=== PATIENT | female | born 1970 | race Caucasian/White ===

== ENCOUNTER → 2018-01-27 09:50 | Outpatient (REF) | payer BC, SELFPAY ==
[2018-01-27 13:15] LABS: Basophils % 0.3 % (0.1-2.0); Eosinophils # 0.1 K/mm3 (0.0-0.4); Eosinophils % 1.2 % (0.1-12.0); Hematocrit 34.6 % (37.0-47.0); Hemoglobin 10.3 g/dL (12.2-16.2); Lymphocytes # 1.5 K/mm3 (0.7-4.5); Lymphocytes % 17.9 K/mm3 (10-50); Mean Corpuscular HGB Conc 29.9 g/dL (31.8-35.4); Mean Corpuscular Hemoglobin 22.3 pg (27.0-31.2); Mean Corpuscular Volume 74.7 fl (81-99); Mean Platelet Volume 8.3 fl (7.4-10.4); Monocytes # 0.5 K/mm3 (0.1-1.0); Monocytes % 5.4 % (1.7-9.3); Neutrophils # 6.4 K/mm3 (1.8-7.8); Neutrophils % 75.1 % (37.0-80.0); Platelet Count 251 K/mm3 (142-424); Red Blood Count 4.64 M/mm3 (4.20-5.40); Red Cell Distribution Width 18.7 % (11.5-17.5); White Blood Count 8.5 K/mm3 (4.8-10.8)
[2018-01-27 13:58] LABS: Alanine Aminotransferase 18 U/L (12-78); Albumin Level 3.2 gm/dL (3.4-5.0); Albumin/Globulin Ratio 0.9 (1.1-1.8); Alkaline Phosphatase 53 U/L (46-116); Anion Gap 14.2 mEq/L (5-15); Aspartate Amino Transferase 17 U/L (15-37); Bilirubin,Total 0.2 mg/dL (0.2-1.0); Blood Urea Nitrogen 18 mg/dL (7-18); Carbon Dioxide 24 mmol/L (21.0-32.0); Chloride 104 mmol/L (98-107); Chol/HDL Ratio 3.4 (1-3.5); Cholesterol 124 mg/dL (140-200); Creatinine,Serum 0.84 mg/dL (0.55-1.02); Estimated Glomerular Filt Rate 73 ml/min (>60); GFR (African American) 88 ML/MIN (>60); Globulin 3.7 gm/dl (1.3-3.2); Glucose 117 mg/dL (74-106); HDL Cholesterol 37 mg/dL (29-89); LDL Cholesterol 75 mg/dL (0-130); Potassium 4.2 mmoL/L (3.5-5.1); Sodium 138 mmol/L (136-145); T4 (Thyroxine) 5.4 ug/dl (4.7-13.3); Thyroid Stimulating Hormone 1.88 uIU/ml (0.358-3.740); Total Protein,Serum 6.9 gm/dL (6.4-8.2); Triglycerides 62 mg/dL (30-200); VLDL Cholesterol 12 mg/dL (0-40)
[2018-01-28 10:20] LABS: Vitamin D 25 Hydroxy 26.4 ng/mL (30.0-100.0)
== END ==
LOC: LAB 09:50
PROVIDERS: Visit Provider Physician Assistant
DX: R60.9 Edema, unspecified (principal); R63.5 Abnormal weight gain
CPT/HCPCS: 80053; 80061; 82652; 84436; 84443; 85025

== ENCOUNTER → 2018-02-04 13:33 | Outpatient (CLI) | payer BC, SELFPAY ==
--- NOTE | 2018-02-04 13:34 | XR_ITS ---
XR chest 2V HISTORY: ITS.REASON: edema ORDERING PHYSICIAN: PELON Thomas PATIENT AGE: 47 years COMPARISON: FINDINGS: Unremarkable cardiovascular structures. There is a 4 cm rounded density in the retrocardiac region on the left medially. Differential diagnosis includes hiatal hernia or pulmonary mass. Recommend chest CT with contrast for further evaluation. The remaining lungs are clear. There is an 8 mm calcified granuloma in the left upper lobe medially. No acute bony anomalies. IMPRESSION: 4 cm retrocardiac mass versus hiatal hernia. Recommend chest CT with contrast for further evaluation
--- NOTE | 2018-02-04 13:34 | CA_ITS ---
PROCEDURE: 2-D M-mode and color Doppler study INDICATIONS FOR THE TEST: Chest pain COPD Heart Murmur Tobacco Smoking Palpitations Fatigue Syncope Edema+ Hypertension Diabetes Mellitus Rheumatic Fever SOB MCMAHON Obesity Hyperlipidemia Family History HD Additional History PATIENT INFORMATION HEIGHT: 69 WEIGHT:302 GENDER: Female B/P:142/88 2-D/M-MODE INTERPRETATION: 2-D MEASUREMENTS OBSERVED VALUES IN CMS Right Ventricular Dimension (RVDd) 2.8 Interventricular Septum (Thickness)(IVsd) 1.5 Left Ventricular Internal Dimensions(LVIDd) 5.0 Left Ventricular Posterior Wall (Thickness)(LVPWd) 1.1 Aortic Root 3.0 Aortic Cusp Separation 1.9 Left Atrial Dimensions (LAD) 4.5 2D 1. Left atrium is mildly enlarged, left ventricle is normal size, mild concentric left ventricular hypertrophy, visually estimated ejection fraction 55% with no obvious regional wall motion abnormality. 2. The right atrium and right ventricle are mildly enlarged with normal contractility. 3. The aortic valve is minimally thickened and fibrosed. 4. The mitral and tricuspid valvular grossly normal. 5. The pulmonic valve is poorly visualized. 6. No significant pericardial effusion noted. DOPPLER INTERROGATION: Doppler interrogation of the aortic, mitral and tricuspid valvular presence of mild mitral and tricuspid regurgitation, tricuspid and jet velocity insufficient for calculation of the right ventricular systolic pressure, grade 1 diastolic dysfunction seen with tissue Doppler evidence of raised left atrial pressure, inferior vena cava is mildly dilated with normal inspiratory collapse. CONCLUSION: 1. Mildly enlarged left atrium, normal left ventricular size, mild concentric left ventricular hypertrophy, visually estimated ejection fraction 55% with no obvious regional wall motion abnormality, grade 1 diastolic dysfunction seen with tissue Doppler evidence of raised left atrial pressure. 2. Mildly enlarged right atrium and right ventricle, contractility of the right ventricle is normal 3. No significant pericardial effusion noted.
== END ==
PROVIDERS: Family Provider Family Medicine; PCP Physician Assistant; Visit Provider Physician Assistant
DX: R60.9 Edema, unspecified (principal); R93.8 Abnormal findings on diagnostic imaging of other specified body structures
CPT/HCPCS: 71046; 93306

== ENCOUNTER → 2018-02-16 10:43 | Outpatient (CLI) | payer BC, SELFPAY ==
--- NOTE | 2018-02-16 10:48 | CT_ITS ---
CT chest w con HISTORY: Pulmonary mass, abnormal chest x-ray ITS.REASON: abnormal CXR ORDERING PHYSICIAN: PELON Thomas PATIENT AGE: 47 years COMPARISON: 02/04/2018 TECHNIQUE: Axial images obtained following the administration of 75 mL of Isovue 370 . Sagittal, and coronal reformatted images are also generated and reviewed. All CT scans at the facility use one or more dose reduction, viz: automated exposure control; ma/kV adjustment per patient size (including targeted exams where dose is matched to indication; i.e. head); or iterative reconstruction technique. FINDINGS: No mediastinal or hilar mass or adenopathy. Normal heart size. No evidence of aortic aneurysm or central pulmonary embolus. There are scattered small lymph nodes in the axilla. Mild fibrotic changes present in the right upper lobe posteriorly extending to the pleura. No central obstructing lesion. There is a calcified nodule in the left upper lobe medially and may be due to granuloma. There is a well-circumscribed round soft tissue mass in the left lower lobe medially and posteriorly measuring 3.7 x 3.7 cm with density measurements ranging from -14 to 20 Hounsfield units. No definite fat or calcification evident. No other pulmonary nodules evident. This lesion is abutting the posterior mediastinum without evidence of bony erosion. This is anterior to the neural foramen of spine. Does not appear to enhance. Upper abdominal images straits cholelithiasis. No acute bony anomalies. IMPRESSION: 3.7 x 3.7 cm left lower lobe mass well-circumscribed iso to hypodense.. This may represent a pulmonary hamartoma however, definite fat or calcification is not identified within the lesion. Therefore, neoplasm cannot be excluded. Hamartomas may show increase FDG PET activity therefore PET scan not recommended. Would initially recommend a 3 month follow-up and pulmonology consult. Cholelithiasis
== END ==
PROVIDERS: Family Provider Family Medicine; PCP Physician Assistant; Visit Provider Physician Assistant
DX: R91.8 Other nonspecific abnormal finding of lung field (principal)
CPT/HCPCS: 71260; Q9967

== ENCOUNTER → 2018-06-22 10:00 | Outpatient (REF) | payer BC, SELFPAY ==
[2018-06-22 14:43] LABS: Amphetamine/Metha Screen,Urine Negative ng/mL (<1000); Barbiturates Screen,Urine Negative ng/mL (<200); Benzodiazepines Screen,Urine Negative ng/mL (<200); Cannabinoid Screen,Urine Negative ng/mL (<50); Cocaine Screen,Urine Negative ng/mL (<300); Methadone Screen,Urine Negative ng/mL (<300); Opiate Screen,Urine Negative ng/mL (<300); Phencyclidine Screen,Urine Negative ng/mL (<25)
== END ==
LOC: LAB 10:00
PROVIDERS: Visit Provider Physician Assistant
DX: Z79.899 Other long term (current) drug therapy (principal)
CPT/HCPCS: 80305

== ENCOUNTER → 2018-09-29 08:45 | Outpatient (CLI) | payer OTHER, SELFPAY ==
--- NOTE | 2018-09-29 08:47 | MM_ITS ---
MM Dig screening mamm BI w/CAD CAD Screening COMPARISON: Digital mammograms with CAD 05/23/2013 and post biopsy right breast 06/22/2012 INDICATION: There is a history of breast cancer patient's mother diagnosed before menopause. There has been a previous biopsy right breast for benign disease. TECHNIQUE: Standard CC and MLO images were obtained. R2 CAD reviewed. FINDINGS: Minimal fibroglandular densities are seen in the subareolar regions of both breasts. There is a biopsy clip just deep to the nipple right breast with minimal post biopsy scarring noted. There is a possible asymmetric density outer quadrant left breast only definitely seen on the cc view. Recommend patient return for spot compression MLO and CC views of the area marked on the film. Ultrasound may be necessary as well. There are no suspicious microcalcifications.. IMPRESSION: Fibrofatty parenchyma with possible new asymmetric density left breast BI-RADS Category: 0 Need Additional Imaging Evaluation RECOMMENDED FOLLOW-UP: IMM - IMMEDIATE FOLLOW-UP RECOMMENDED (A letter has been sent to the patient regarding results of the study.)
== END ==
PROVIDERS: PCP Physician Assistant; Visit Provider Physician Assistant
DX: Z12.31 Encounter for screening mammogram for malignant neoplasm of breast (principal)
CPT/HCPCS: 77067

== ENCOUNTER → 2018-10-11 14:18 | Outpatient (CLI) | payer OTHER, SELFPAY ==
--- NOTE | 2018-10-11 14:19 | US_ITS ---
MM Dig mamm DX unilat LT CAD, US breast LT complete INDICATION: Follow-up abnormal mammogram ORDERING PHYSICIAN: PELON Thomas PATIENT AGE: 47 years COMPARISON: 09/29/2018, 05/23/2013 TECHNIQUE: Problem-solving views performed along with left breast ultrasound FINDINGS: There is a persistent nodular density in the outer left breast at 10 x 6 mm. This is around the 5:00 region. Other areas of asymmetry appear to compress out as fibroglandular tissue. Left breast ultrasound: There is a 6 x 8 mm cyst at the 5:00 region which has a small internal septation likely corresponding to the mammographic abnormality. No suspicious nodules are evident IMPRESSION: Mammographic abnormality may correspond to an 8 mm septated cyst. No suspicious nodules BI-RADS Category: 3 Probably Benign Finding Short Term Follow-up RECOMMENDED FOLLOW-UP: 6M - 6 MONTH FOLLOW-UP (A letter has been sent to the patient regarding results of the study.)
== END ==
PROVIDERS: PCP Physician Assistant; Visit Provider Physician Assistant
DX: R92.8 Other abnormal and inconclusive findings on diagnostic imaging of breast (principal)
CPT/HCPCS: 76641; 77065

== ENCOUNTER → 2019-02-24 09:24 | Outpatient (CLI) | payer OTHER, SELFPAY ==
[2019-02-24 09:54] LABS: Basophils % 0.2 % (0.1-2.0); Eosinophils # 0.1 K/mm3 (0.0-0.4); Eosinophils % 1.3 % (0.1-12.0); Hematocrit 35.9 % (37.0-47.0); Hemoglobin 11.8 g/dL (12.2-16.2); Lymphocytes # 1.6 K/mm3 (0.7-4.5); Mean Corpuscular HGB Conc 32.8 g/dL (31.8-35.4); Mean Corpuscular Hemoglobin 26.1 pg (27.0-31.2); Mean Corpuscular Volume 79.4 fl (81-99); Mean Platelet Volume 8.1 fl (7.4-10.4); Monocytes # 0.5 K/mm3 (0.1-1.0); Monocytes % 5.4 % (1.7-9.3); Neutrophils # 7.3 K/mm3 (1.8-7.8); Neutrophils % 76.1 % (37.0-80.0); Platelet Count 311 K/mm3 (142-424); Red Blood Count 4.52 M/mm3 (4.20-5.40); Red Cell Distribution Width 13.4 % (11.5-17.5); White Blood Count 9.6 K/mm3 (4.8-10.8)
[2019-02-24 11:20] LABS: Hemoglobin A1C 6.3 % (0.0-7.0)
[2019-02-24 11:54] LABS: Alanine Aminotransferase 24 U/L (12-78); Albumin Level 3.1 gm/dL (3.4-5.0); Albumin/Globulin Ratio 0.8 (1.1-1.8); Alkaline Phosphatase 53 U/L (46-116); Anion Gap 15.8 mEq/L (5-15); Aspartate Amino Transferase 18 U/L (15-37); Bilirubin,Total 0.3 mg/dL (0.2-1.0); Blood Urea Nitrogen 15 mg/dL (7-18); Calcium 8.4 mg/dL (8.5-10.1); Carbon Dioxide 26 mmol/L (21.0-32.0); Chloride 103 mmol/L (98-107); Chol/HDL Ratio 3.9 (1-3.5); Cholesterol 132 mg/dL (140-200); Creatinine,Serum 0.83 mg/dL (0.55-1.02); Estimated Glomerular Filt Rate 73 ml/min (>60); GFR (African American) 89 ML/MIN (>60); Globulin 3.8 gm/dl (1.3-3.2); Glucose 130 mg/dL (74-106); HDL Cholesterol 34 mg/dL (29-89); LDL Cholesterol 80 mg/dL (0-130); Potassium 4.8 mmoL/L (3.5-5.1); Sodium 140 mmol/L (136-145); T4 (Thyroxine) 5.5 ug/dl (4.7-13.3); Thyroid Stimulating Hormone 3.65 uIU/ml (0.358-3.740); Total Protein,Serum 6.9 gm/dL (6.4-8.2); Triglycerides 88 mg/dL (30-200); VLDL Cholesterol 18 mg/dL (0-40)
[2019-02-25 08:16] LABS: Creatinine, Urine 102.4 mg/dL (Not Estab.); Microalbumin, Urine 8.7 ug/mL (Not Estab.)
[2019-02-25 10:49] LABS: Vitamin D 25 Hydroxy 30.1 ng/mL (30.0-100.0)
[2019-02-26 17:07] LABS: Insulin Level Total 28.7 uIU/mL (2.6-24.9)
== END ==
PROVIDERS: Obstetrics & Gynecology Gynecology; Visit Provider Nurse Practitioner Family
DX: Z00.00 Encounter for general adult medical examination without abnormal findings (principal); E11.9 Type 2 diabetes mellitus without complications
CPT/HCPCS: 36415; 80053; 80061; 82043; 82570; 82652; 83001; 83036; 83525; 84436; 84443; 85025

== ENCOUNTER → 2019-03-07 10:28 | Outpatient (POV) | payer OTHER, SELFPAY | PROVIDERS: Visit Provider Dermatology | DX: Z00.00 Encounter for general adult medical examination without abnormal findings (principal) ==

== ENCOUNTER → 2019-08-14 13:37 | Outpatient (CLI) | payer OTHER, SELFPAY ==
--- NOTE | 2019-08-14 13:37 | US_ITS ---
PROCEDURE: US BREAST LT COMPLETE CLINICAL INDICATION: 6 mth f/u COMPARISON: BREASTLT US breast LT complete from 10/11/2018 MM DIG MAMM DX UNILAT LT CAD from 08/14/2019 FINDINGS: Complicated cyst is present 4 o'clock measuring 9 x 5 mm. No solid suspicious lesions are evident. No significant change compared to the previous exam. IMPRESSION: BI-RADS category 2 benign findings. Recommend six-month follow-up bilateral mammogram to return to annual screening as per mammogram report of 08/14/2019 Dictated by: Adolfo Hicks MD 08/23/2019 07:59 Electronically signed by Adolfo Hicks MD in [place] 08/23/2019 08:00
--- NOTE | 2019-08-14 13:37 | MM_ITS ---
PROCEDURE: MM DIG MAMM DX UNILAT LT CAD CLINICAL INDICATION: 6 mth f/u or suspected cyst COMPARISON: DMDX[facility] DIG MAMM-DX UNILATERAL-RT from 06/22/2012 [facility] DIG MAMM-SCREEN TYRONE from 05/23/2013 [facility] MM Dig screening mamm BI w/CAD from 09/29/2018 DXLT MM Dig mamm DX unilat LT CAD from 10/11/2018 TECHNIQUE: Spot-compression MLO and CC views FINDINGS: The well-defined nodular density at the 5 o'clock position is stable and unchanged from previous exam. Another asymmetric density in the subareolar region is stable as well. There is no new or suspicious lesion and no suspicious microcalcifications. IMPRESSION: Stable benign-appearing densities left breast and recommend the patient return to normal yearly screening BI-RAD Category: 2 Benign Finding(s) FOLLOW-UP: 6M 6Month Follow-up to return to normal yearly screening schedule (A letter has been sent to the patient regarding results of the study.) Dictated by: Dr. Michael Cordon MD 08/21/2019 10:[address] Michael Cordon MD in [place] 08/21/2019 10:19
== END ==
PROVIDERS: PCP Physician Assistant; Visit Provider Physician Assistant
DX: R92.8 Other abnormal and inconclusive findings on diagnostic imaging of breast (principal); N63.24 Unspecified lump in the left breast, lower inner quadrant
CPT/HCPCS: 76641; 77065

== ENCOUNTER → 2019-08-15 09:20 | Outpatient (POV) | payer OTHER, SELFPAY | PROVIDERS: Visit Provider Dermatology | DX: Z00.00 Encounter for general adult medical examination without abnormal findings (principal) ==

== ENCOUNTER → 2019-10-20 07:53 | Outpatient (CLI) | payer OTHER, SELFPAY ==
--- NOTE | 2019-10-20 07:53 | MM_ITS ---
PROCEDURE: MM DIG SCREENING MAMM BI W/CAD CLINICAL INDICATION: screening mammogram A history of breast cancer patient's mother diagnosed in her 40s. There has been a previous biopsy right breast for benign disease. COMPARISON: DMDXUR DIG MAMM-DX UNILATERAL-RT from 06/22/2012 [facility] DIG MAMM-SCREEN TYRONE from 05/23/2013 [facility] MM Dig screening mamm BI w/CAD from 09/29/2018 DXLT MM Dig mamm DX unilat LT CAD from 10/11/2018 MM DIG MAMM DX UNILAT LT CAD from 08/14/2019 TECHNIQUE: Standard CC and MLO images were obtained. Ac images were performed. FINDINGS: Scattered fibroglandular densities are seen throughout both breasts. There is a benign-appearing calcification just deep to the nipple right breast. There is a small asymmetric density deep to the nipple right breast likely due to post biopsy scarring best demonstrated on ac images. There is a stable benign-appearing nodular density outer quadrant left breast confirmed on ac images. There is no suspicious lesions seen. IMPRESSION: Fibrofatty parenchyma with no suspicious lesions seen BI-RAD Category: 2 Benign Finding(s) FOLLOW-UP: 1YR 1 Year Follow-up (A letter has been sent to the patient regarding results of the study.) Dictated by: Dr. Michael Cordon MD 10/24/2019 10:[address] Michael Crodon MD in [place] 10/24/2019 10:02
== END ==
PROVIDERS: PCP Physician Assistant; Visit Provider Physician Assistant
DX: Z12.39 Encounter for other screening for malignant neoplasm of breast (principal)
CPT/HCPCS: 77063; 77067

== ENCOUNTER → 2020-04-22 15:52 | Outpatient (CLI) | payer OTHER, SELFPAY ==
[2020-04-22 16:37] LABS: Basophils % 0.2 % (0.1-2.0); Eosinophils # 0.1 K/mm3 (0.0-0.4); Eosinophils % 0.9 % (0.1-12.0); Hematocrit 28.3 % (37.0-47.0); Hemoglobin 8.2 g/dL (12.2-16.2); Lymphocytes # 1.6 K/mm3 (0.7-4.5); Lymphocytes % 14.9 % (10-50); Mean Corpuscular HGB Conc 28.8 g/dL (31.8-35.4); Mean Corpuscular Hemoglobin 19.3 pg (27.0-31.2); Mean Corpuscular Volume 66.8 fl (81-99); Mean Platelet Volume 9.1 fl (7.4-10.4); Monocytes # 0.5 K/mm3 (0.1-1.0); Monocytes % 4.6 % (1.7-9.3); Neutrophils # 8.4 K/mm3 (1.8-7.8); Neutrophils % 79.3 % (37.0-80.0); Platelet Count 324 K/mm3 (142-424); Red Blood Count 4.23 M/mm3 (4.20-5.40); Red Cell Distribution Width 16.6 % (11.5-17.5); White Blood Count 10.6 K/mm3 (4.8-10.8)
[2020-04-22 18:16] LABS: Alanine Aminotransferase 19 U/L (12-78); Albumin Level 3.9 g/dl (3.5-5.0); Albumin/Globulin Ratio 1.1 (1.1-1.8); Alkaline Phosphatase 80 U/L (38-126); Anion Gap 14.8 mEq/L (5-15); Aspartate Amino Transferase 30 U/L (14-36); Bilirubin,Total 0.4 mg/dl (0.2-1.3); Blood Urea Nitrogen 15 mg/dl (7-17); Carbon Dioxide 28 mmol/L (22.0-30.0); Chloride 99 mmol/L (98-107); Chol/HDL Ratio 3.2 (1-3.5); Cholesterol 146 mg/dl (140-200); Estimated Glomerular Filt Rate 89 ml/min (>60); GFR (African American) 108 ML/MIN (>60); Globulin 3.5 g/dL (1.3-3.2); Glucose 145 mg/dl (74-100); HDL Cholesterol 45 mg/dl (40-60); Potassium 3.8 mmoL/L (3.5-5.1); Sodium 138 mmol/L (136-145); Total Protein,Serum 7.4 g/dl (6.3-8.2); Triglycerides 100 mg/dl (30-150); VLDL Cholesterol 20 mg/dL (0-40)
[2020-04-22 18:27] LABS: Direct LDL Cholesterol 86.12 mg/dL (100-129)
[2020-04-22 18:34] LABS: 25-OH Vitamin D, Total 22.2 ng/mL (30-100)
[2020-04-22 18:46] LABS: Thyroid Stimulating Hormone 1.86 uIU/mL (0.465-4.68)
[2020-04-22 20:12] LABS: Hemoglobin A1C 6.9 % (4.0-6.0)
== END ==
PROVIDERS: Visit Provider Physician Assistant
DX: F90.9 Attention-deficit hyperactivity disorder, unspecified type (principal); R00.0 Tachycardia, unspecified; E55.9 Vitamin D deficiency, unspecified
CPT/HCPCS: 80053; 80061; 82306; 83036; 84436; 84443; 85025

== ENCOUNTER → 2020-04-23 16:49 | Outpatient (CLI) | payer OTHER, SELFPAY ==
[2020-04-23 17:48] LABS: Hematocrit 28.1 % (37.0-47.0); Hemoglobin 8.2 g/dL (12.2-16.2)
[2020-04-23 19:18] LABS: Iron < 10 ug/dL (37-170)
[2020-04-23 22:40] LABS: Total Iron Binding Capacity 476 ug/dL (265-497)
[2020-04-23 23:07] LABS: Ferritin 4.96 ng/ml (6.24-137)
[2020-04-25 16:52] LABS: Peripheral Smear Review Scanned Result
== END ==
PROVIDERS: Visit Provider Physician Assistant
DX: D64.9 Anemia, unspecified (principal)
CPT/HCPCS: 36415; 82728; 83540; 83550; 85014; 85018; 86850

== ENCOUNTER 2020-04-24 08:23 | Outpatient (CLI) | payer OTHER, SELFPAY ==
[2020-04-24] VITALS (20 sets, daily range): BP systolic 131–172; BP diastolic 54–95; PULSE 63–80; RESP 18–20; TEMP 36.3–36.6; O2SAT 97–98; BMI 41.3
[2020-04-24 14:29] LABS: Hematocrit 29.9 % (37.0-47.0)
[2020-04-24 14:53] LABS: Hemoglobin 9.6 g/dL (12.2-16.2)
== END 2020-04-24 15:00 | disposition home or self-care (01) ==
LOC: INF 08:23
PROVIDERS: Visit Provider Physician Assistant
DX: D64.9 Anemia, unspecified (principal)
CPT/HCPCS: 36430; 85014; 85018; P9016

== ENCOUNTER → 2020-05-16 13:34 | Outpatient (CLI) | payer OTHER, SELFPAY ==
[2020-05-16 14:22] LABS: Basophils % 0.3 % (0.1-2.0); Eosinophils # 0.1 K/mm3 (0.0-0.4); Eosinophils % 0.9 % (0.1-12.0); Hematocrit 35.9 % (37.0-47.0); Lymphocytes # 1.4 K/mm3 (0.7-4.5); Lymphocytes % 19.4 % (10-50); Mean Corpuscular HGB Conc 30.6 g/dL (31.8-35.4); Mean Corpuscular Hemoglobin 21.2 pg (27.0-31.2); Mean Corpuscular Volume 69.3 fl (81-99); Mean Platelet Volume 7.9 fl (7.4-10.4); Monocytes # 0.5 K/mm3 (0.1-1.0); Monocytes % 6.9 % (1.7-9.3); Neutrophils # 5.1 K/mm3 (1.8-7.8); Neutrophils % 72.4 % (37.0-80.0); Platelet Count 290 K/mm3 (142-424); Red Blood Count 5.18 M/mm3 (4.20-5.40); Red Cell Distribution Width 20.2 % (11.5-17.5); White Blood Count 7.1 K/mm3 (4.8-10.8)
[2020-05-16 15:43] LABS: Iron 29 ug/dL (37-170)
[2020-05-16 15:52] LABS: Total Iron Binding Capacity 383 ug/dL (265-497)
[2020-05-16 16:20] LABS: Ferritin 11.8 ng/ml (6.24-137)
== END ==
PROVIDERS: Visit Provider Internal Medicine Medical Oncology
DX: D50.9 Iron deficiency anemia, unspecified (principal)
CPT/HCPCS: 36415; 82728; 83540; 83550; 85025

== ENCOUNTER 2020-05-18 13:58 | Emergency (ER) | payer OTHER, SELFPAY ==
[2020-05-18 14:08] VITALS: BP 172/92; PULSE 66; RESP 18; TEMP 36.7; O2SAT 98; BMI 41.3
--- NOTE | 2020-05-18 14:52 | HMH.EDUTC ---
[facility] [place] Disposition Clinical Impression: Finger infection Disposition: Home, Self-Care Condition on Discharge: Good Instructions: DI for Cellulitis -- Adult, Cellulitis, DI for Paronychia, Paronychia Additional Instructions: 1. Soak the infected area in warm water once or twice a day for 20 minutes. 2. After your initial soak, cut the hangnail off. ... 3. Rub vitamin E oil or cream on the affected area to prevent another hangnail. 4. Use a topical antibiotic cream on the infected hangnail for a few days Follow up with Family doctor in the next 48-72 hours if no improvement or any worsening of symptoms Make sure to check back in the next 48 hours to see if your wound culture is back and make sure you are on the right medication Return if needed Straight to ER if any life threatening symptoms Prescriptions: Sulfamethoxazole/Trimethoprim [Bactrim DS tablet] 1 each PO BID 10 Days #20 tab Transmission Status: Pending to [facility] #[id number] Mupirocin [Bactroban 2% Ointment 22gm tube] 1 applicatio TP BID #1 tube Transmission Status: Pending to [facility] #[id number] Referrals: Jenae Ellis PA [Primary Care Provider] - As needed Time of Disposition: 15:03 Medical Decision Making - Deyvi Inquiry Pt receiving controlled substance: No Deyvi was queried for this patient: No Vital Signs: 05/18/20 14:08 Temperature 98.1 F Temperature Source Oral Pulse Rate [Radial] 66 Respiratory Rate 18 Blood Pressure [Right Arm] 172/92 H Blood Pressure Mean [Right Arm] 118 Blood Pressure Source [Right Arm] Automatic Cuff Blood Pressure Position [Right Arm] Sitting 02 Sat by Pulse Oximetry 98 Oxygen Delivery Method Room Air [facility] [place] HPI - General Stated complaint: right ring finger infected Time Seen by Provider: 05/18/20 14:52 Mode of Arrival: Ambulatory Source of Information: Patient Limitations: No Limitations Description of Symptoms (Recalled from Triage Doc. by RN): right ring finger infection. States she lanced it herself and it filled back up HEENT Symptoms (Recalled from RN notes): No Resp Symptoms (Recalled from RN notes): No Skin Symptoms (Recalled from RN notes): Yes MS Symptoms (Recalled from RN notes): No Functional Status (Recalled from RN notes): wnl - History of Present Illness Provider Complaint: Patient states that she noticed she was having finger infection in her right ring finger States that she poked it and got large amount of green pus out of it but then it filled back up States that it is sore and she has had them before and had to have antibiotics for it so she came in - Related Data Home Medications Medication Instructions Recorded Confirmed Dextroamphetamine/Amphetamine 50 mg PO DAILY 04/24/20 05/16/20 [Dextroamp-Amphet ER 25 mg Cap] Ergocalciferol (Vitamin D2) 50,000 unit PO QWEEK 04/24/20 05/16/20 [Drisdol] Ferrous Sulfate [Slow Release Iron] 143 mg PO DAILY 04/24/20 05/16/20 Meloxicam 15 mg PO DAILY 04/24/20 05/16/20 Metformin HCl [Metformin ER 1,000 mg PO DAILY 04/24/20 05/16/20 Osmotic] Venlafaxine HCl [Effexor Xr] 75 mg PO DAILY 04/24/20 05/16/20 Previous Rx's Medication Instructions Recorded cyclobenzaprine 5 mg tablet 5 mg PO TID PRN #42 tab 03/13/19 hydrochlorothiazide 12.5 mg tablet 12.5 mg PO QAM #90 tab 03/13/19 Albuterol Sulfate [Albuterol HFA 2 puffs IH Q6HP PRN #1 inh 05/01/19 Inhaler] Mupirocin [Bactroban 2% Ointment 1 applicatio TP BID #1 tube 05/18/20 22gm tube] Sulfamethoxazole/Trimethoprim 1 each PO BID 10 Days #20 tab 05/18/20 [Bactrim DS tablet] Allergies Allergy/AdvReac Type Severity Reaction Status Date / Time No Known Allergies Allergy Verified 05/16/20 13:02 - Worker's Comp Is this a Worker's Comp case?: No [facility] History - Hepatitis A Screen Drug use history?: No High risk sexual behaviors?: No History of sexually transmitted infection?: No Currently employed?: No Childcare worker?: No Do
[2020-05-18 15:09] VITALS: BP 172/92; PULSE 66; RESP 18; TEMP 36.7; O2SAT 98
== END 2020-05-18 15:12 | disposition home or self-care (01) ==
PROVIDERS: Emergency Provider Nurse Practitioner; PCP Physician Assistant
DX: L03.011 Cellulitis of right finger (principal); E11.9 Type 2 diabetes mellitus without complications; I10 Essential (primary) hypertension; Z79.899 Other long term (current) drug therapy; Z87.891 Personal history of nicotine dependence
CPT/HCPCS: 87070; 87077; 87186; 87205; 99201

== ENCOUNTER 2020-05-21 10:36 | Outpatient (CLI) | payer OTHER, SELFPAY ==
[2020-05-21 10:46] VITALS: BP 141/86; PULSE 69; RESP 18; TEMP 36.4; O2SAT 98
[2020-05-21 11:10] VITALS: BP 145/82; PULSE 71; RESP 18; O2SAT 99
[2020-05-21 11:40] VITALS: BP 136/78; PULSE 68; RESP 16; TEMP 36.6; O2SAT 99
== END 2020-05-21 11:45 | disposition home or self-care (01) ==
LOC: INF 10:36
PROVIDERS: Visit Provider Internal Medicine Medical Oncology
DX: D50.9 Iron deficiency anemia, unspecified (principal)
CPT/HCPCS: 96365; J1439

== ENCOUNTER 2020-05-29 09:06 | Outpatient (CLI) | payer OTHER, SELFPAY ==
[2020-05-29 09:30] VITALS: BMI 40.4
[2020-05-29 09:38] VITALS: BP 156/72; PULSE 67; RESP 18; TEMP 36.4; O2SAT 99
[2020-05-29 09:40] LABS: Hematocrit 31.2 % (37.0-47.0); Hemoglobin 9.8 g/dL (12.2-16.2)
[2020-05-29 09:55] LABS: Urine Pregnancy, HCG Qual. Negative (Negative)
[2020-05-29 10:08] VITALS: BP 149/78; PULSE 69; RESP 18; O2SAT 98
[2020-05-29 10:12] LABS: Coronavirus 19 IgG Antibody Positive (Negative); Coronavirus 19 IgM Antibody Negative (Negative)
[2020-05-29 10:20] VITALS: BP 161/75; PULSE 69; RESP 18; O2SAT 99
== END 2020-05-29 10:20 | disposition home or self-care (01) ==
LOC: INF 09:06
PROVIDERS: Surgery; Visit Provider Internal Medicine Medical Oncology
DX: D50.9 Iron deficiency anemia, unspecified (principal); Z20.828 Contact with and (suspected) exposure to other viral communicable diseases; U07.1 COVID-19
CPT/HCPCS: 81025; 85014; 85018; 86328; 96365; J1439

== ENCOUNTER 2020-05-30 08:14 | Day surgery (SDC) | payer OTHER, SELFPAY ==
[2020-05-28 14:55] VITALS: BMI 41.3
[2020-05-30 08:31] VITALS: BP 156/78; PULSE 71; RESP 20; TEMP 36.6; O2SAT 97
[2020-05-30 08:46] LABS: POC Glucose,Bedside 105 (70-110)
--- NOTE | 2020-05-30 08:47 | HMH.ANESCL ---
[facility] Anesthesia Checklist - Patient Identification Patient Identification: Arm Band - Structural Data Admitted From: Home Planned Operative Procedure/s: egd/colonoscopy Consent for Planned Operative Procedure(s) Verified: Yes Verified Documents: Surgical Consent, History and Physical - NPO Status Verified Time NPO: 00:00 - Additional verifications Anesthesia Reactions: No - Airway Assessment C-Spine Mobility Assessed: Yes (mp2) TMJ Mobility Assessed: Yes Dentition: Good Dentition - Neurological Assessment Level of Consciousness: Awake, Alert - Anesthesia Plan Anesthesia Risk discussed: Yes Anesthesia Plan: Verified ASA Class: III Anesthesia Type: MAC [facility] History I have reviewed the patient's past medical history: Yes Medical History: Reports:: Diabetes Mellitus Type 2, Hypertension, Palpitations Denies:: Cancer, Diabetes Mellitus Type 1, Internal Pacemaker, MRSA, Seizures *Have you ever received a pneumonia vaccine?: No *Have you received a flu vaccine this season?: No Other Medical History: Reports: Anemia, Arthritis Anesthesia experience/problems:: nac Laterality Cases: Bilateral: Tonsillectomy Other Surgeries: Yes: , Tubal Ligation, Other (mass removed from behind left lung). No: Pacemaker Amputation: No Fractures: Yes (R ankle) - *Social History Smoking Status: Former smoker Alcohol Intake: never Substance Use Type: denies use *Occupational Status:: employed Housing: house Household Members: spouse *Travel in the last 8 weeks: None Family Hx:: Cancer, Diabetes, Heart Attack, Hyperlipidemia, Hypertension, Stroke
[2020-05-30 08:57] VITALS: O2SAT 97
[2020-05-30 09:33] VITALS: BP 120/66; PULSE 76; RESP 16; TEMP 36.6; O2SAT 95
--- NOTE | 2020-05-30 09:33 | HMH.SCOPE ---
- Procedure: Date: 05/30/20 Patient Date of :: 1970 Procedure Performed:: Esophagogastroduodenoscopy with biopsy Colonoscopy Indications:: Anemia Performing Provider:: Sekou Richard MD Referring Provider:: . Sedation:: Monitored anesthesia care Procedure:: After informed consent was obtained the patient was taken to the endoscopy suite. Sedation ensued after the patient was transferred to the left lateral decubitus position. Pulse, blood pressure, and oxygen saturation were monitored throughout the procedure. The endoscope was advanced beyond the duodenal bulb. Retroflexion within the gastric lumen was accomplished. The gastroscope was carefully removed. Digital rectal exam revealed no significant abnormality. The colonoscope was placed in position. The entire colon was evaluated. The colonoscope was carefully removed and the patient was transferred to recovery in stable condition. Please see findings and specimens below for detail. Findings:: Gastroesophageal junction at 42 cm Mild gastroduodenitis Circumferential external hemorrhoids with no thrombosis or bleeding Bowel preparation poor for colonoscopy Significant lack of relaxation and tortuosity Specimens:: Biopsy of duodenal sweep Antral biopsy Biopsy of gastric cardia Recommendations:: Ongoing evaluation with regard to anemia Repeat colonoscopy in 6-12 months with extended bowel preparation Complications:: Poor bowel preparation Estimated blood obtained (mL): 1
[2020-05-30 09:43] VITALS: BP 136/70; PULSE 76; RESP 16; O2SAT 99
[2020-05-30 09:53] VITALS: BP 139/71; PULSE 76; RESP 18; O2SAT 99
== END 2020-05-30 09:53 | disposition home or self-care (01) ==
PROVIDERS: PCP Physician Assistant; Visit Provider Surgery
PROC: 0DJ08ZZ Inspection of Upper Intestinal Tract, Via Natural or Artificial Opening Endoscopic (ICD-10-PCS; CPT 43235; principal; 2020-05-30 09:30)
DX: K29.90 Gastroduodenitis, unspecified, without bleeding (principal); K64.0 First degree hemorrhoids; K56.2 Volvulus; E11.9 Type 2 diabetes mellitus without complications; I10 Essential (primary) hypertension; R00.2 Palpitations; D64.9 Anemia, unspecified; M19.90 Unspecified osteoarthritis, unspecified site; Z90.89 Acquired absence of other organs; Z87.891 Personal history of nicotine dependence; Z80.9 Family history of malignant neoplasm, unspecified; Z82.3 Family history of stroke; Z82.49 Family history of ischemic heart disease and other diseases of the circulatory system; Z83.438 Family history of other disorder of lipoprotein metabolism and other lipidemia
CPT/HCPCS: 43239; 45378; 82962

== ENCOUNTER → 2020-06-10 08:34 | Outpatient (CLI) | payer OTHER, SELFPAY ==
--- NOTE | 2020-06-10 08:35 | FL_ITS ---
PROCEDURE: FL UPPER GI SMALL BOWEL CLINICAL INDICATION: abdominal pain Anemia, constipation COMPARISON: No exams were available for comparison TECHNIQUE: FLUOROSCOPY TIME : 1 minutes and 52 seconds FINDINGS: The esophagus, stomach, and duodenum have an unremarkable appearance.There is no evidence of hiatal hernia. No ulcer or mass evident. No mucosal abnormalities apparent. There is normal peristalsis. The duodenal C-loop is nondisplaced. There was minimal GE reflux noted. The small bowel has an unremarkable appearance. No obstructing lesions mucosal abnormalities or strictures evident. IMPRESSION: Mild GE reflux. Otherwise negative upper GI and small-bowel follow-through Dictated by: Adolfo Hicks MD 06/10/2020 14:12 Adolfo Hicks MD in [place] 06/10/2020 14:12
== END ==
PROVIDERS: PCP Physician Assistant; Visit Provider Surgery
DX: R10.9 Unspecified abdominal pain (principal)
CPT/HCPCS: 74246; 74248

== ENCOUNTER → 2020-07-11 14:33 | Outpatient (CLI) | payer OTHER, SELFPAY ==
[2020-07-11 14:51] LABS: Basophils % 0.4 % (0.1-2.0); Eosinophils # 0.2 K/mm3 (0.0-0.4); Eosinophils % 1.5 % (0.1-12.0); Hematocrit 39.5 % (37.0-47.0); Hemoglobin 12.2 g/dL (12.2-16.2); Lymphocytes # 1.8 K/mm3 (0.7-4.5); Lymphocytes % 17.5 % (10-50); Mean Corpuscular HGB Conc 30.9 g/dL (31.8-35.4); Mean Corpuscular Volume 84.2 fl (81-99); Mean Platelet Volume 15.1 fl (7.4-10.4); Monocytes # 0.5 K/mm3 (0.1-1.0); Monocytes % 4.7 % (1.7-9.3); Neutrophils # 7.6 K/mm3 (1.8-7.8); Neutrophils % 75.9 % (37.0-80.0); Platelet Count 255 K/mm3 (142-424); Red Blood Count 4.69 M/mm3 (4.20-5.40); Red Cell Distribution Width 22.2 % (11.5-17.5); White Blood Count 10.1 K/mm3 (4.8-10.8)
[2020-07-11 15:36] LABS: Iron 67 ug/dL (37-170)
[2020-07-11 15:46] LABS: Total Iron Binding Capacity 329 ug/dL (265-497)
[2020-07-11 16:12] LABS: Ferritin 50.4 ng/ml (6.24-137)
== END ==
PROVIDERS: Visit Provider Internal Medicine Medical Oncology
DX: D50.9 Iron deficiency anemia, unspecified (principal)
CPT/HCPCS: 36415; 82728; 83540; 83550; 85025

== ENCOUNTER → 2020-08-28 13:49 | Outpatient (CLI) | payer OTHER, SELFPAY ==
--- NOTE | 2020-08-28 13:50 | CA_ITS ---
APPROVED REPORT EXAM: Comprehensive 2D, Doppler, and color-flow Echocardiogram Heater Installer: Kandace Vallejo CRT Ht: 5 ft 9 in Wt: 281lbs BSA: 2.39 BP: 164/102 mmHg Indications: Murmur, Palpitations, Hyperlipidemia, Hypertension/HDD 2D Dimensions LVOT 1.98 cm (M/F) 1.5-2.5 M-Mode Dimensions RVDd 3.86 cm (0.9-2.6) LA Diam 4.04 cm (1.9-4.0) LVDd 4.43 cm (3.5-5.7) Ao Diam 2.91 cm (2.0-3.7) LVDs 3.10 cm (3.5-5.7) IVSd 1.57 cm (0.6-1.1) PWd 1.45 cm (0.6-1.1) EF (Teich) 57.50% FS 30.00% EDV (Teich) 89.10 mL ESV (Teich) 37.90 mL LV Diastology E Decel Time 203.00 (160-240 msec) E/A Ratio 1.20 MED E' 6.20 (< 7 cm/sec) E'/MED E' Ratio 14.18 (>14) LAT E' 4.50 (<10 cm/sec) E/LAT E' Ratio 19.53 (>14) Aortic Valve AO Peak GR. 12.40 mmHg Mitral Valve MV A Velocity 73.00 (40-130 cm/s) E/A Ratio 1.20 MV Decel. Time 203.00 (160-240 ms) Pulmonary Valve PV Peak Velocity 47.00 (50-150 cm/s) Tricuspid Valve TR P. Velocity 162.00 cm/s RAP Estimate 10.00 mmHg RVSP 20.50 mmHg Left Ventricle Left atrium is mildly enlarged, left ventricle is normal size, mild concentric left ventricular hypertrophy, visually estimated ejection fraction 55% with no regional wall motion abnormality, grade 1 diastolic dysfunction seen with tissue Doppler evidence of raise left atrial pressure. Right Ventricle Right atrium and right ventricle mildly enlarged with normal contractility. Aortic Valve Aortic valve is minimally thickened and fibrosed, there is no aortic stenosis or aortic insufficiency. Mitral Valve Mitral valve is grossly normal, there is mild mitral regurgitation. Tricuspid Valve Tricuspid valve is grossly normal, there is mild tricuspid regurgitation, tricuspid regurgitation jet velocity is inadequate for calculation of the right ventricular systolic pressure. Pulmonic Valve Pulmonic valve is poorly visualized. Great Vessels Aortic root is normal size. Pericardium No significant pericardial effusion noted. Conclusion 1. Mild biatrial enlargement, normal left ventricular size, mild concentric left ventricular hypertrophy, visually estimated ejection fraction 55% with no regional wall motion abnormality, grade 1 diastolic dysfunction seen with tissue Doppler evidence of raise left atrial pressure. 2. Mildly enlarged right ventricle with normal contractility. 3. Mild mitral and tricuspid regurgitation. 4. No significant pericardial effusion noted. Electronically signed by : Cliff Arnold, 08/29/2020 13:43:01
== END ==
PROVIDERS: PCP Physician Assistant; Visit Provider Physician Assistant
DX: R01.1 Cardiac murmur, unspecified (principal)
CPT/HCPCS: 93306

== ENCOUNTER → 2020-10-25 09:20 | Outpatient (CLI) | payer OTHER, SELFPAY ==
--- NOTE | 2020-10-25 09:26 | MM_ITS ---
PROCEDURE: MM DIG SCREENING MAMM BI W/CAD Digital Breast Tomosynthesis Included CLINICAL INDICATION: Breast cancer screening There is a history of breast cancer in the patient's mother diagnosed in her 40s. There has been a previous biopsy right breast for benign disease. COMPARISON: MG DXLT MM Dig mamm DX unilat LT CAD from 10/11/2018 MG MM DIG MAMM DX UNILAT LT CAD from 08/14/2019 MG MM DIG SCREENING MAMM BI W/CAD from 10/20/2019 TECHNIQUE: Standard CC and MLO images and 3D Tomosynthesis was obtained. R2 CAD reviewed. FINDINGS: Mild scattered fibroglandular densities are seen in the subareolar regions of both breasts. There is a biopsy clip deep to the nipple right breast. There are 2 mole markers left breast. Again noted is a stable benign-appearing nodular density outer quadrant left breast. There is no new or suspicious lesion in either breast and no suspicious microcalcifications. IMPRESSION: Stable exam with moderate breast density and no suspicious lesions seen BI-RAD Category: 2 Benign Finding(s) FOLLOW-UP: 1YR 1 Year Follow-up (A letter has been sent to the patient regarding results of the study.) Dictated by: Dr. Michael Cordon MD 10/26/2020 13:55 Dr. Michael Cordon MD in [place] 10/26/2020 13:55
== END ==
PROVIDERS: PCP Physician Assistant; Visit Provider Physician Assistant
DX: Z12.31 Encounter for screening mammogram for malignant neoplasm of breast (principal)
CPT/HCPCS: 77063; 77067

== ENCOUNTER → 2020-12-03 08:42 | Outpatient (POV) | payer OTHER, SELFPAY | PROVIDERS: Visit Provider Dermatology | DX: Z00.00 Encounter for general adult medical examination without abnormal findings (principal) ==

== ENCOUNTER → 2020-12-04 13:54 | Outpatient (CLI) | payer OTHER, SELFPAY ==
[2020-12-04 14:08] LABS: Alanine Aminotransferase 20 U/L (12-78); Albumin Level 3.9 g/dl (3.5-5.0); Albumin/Globulin Ratio 1.1 (1.1-1.8); Alkaline Phosphatase 55 U/L (38-126); Anion Gap 12.1 mEq/L (5-15); Aspartate Amino Transferase 24 U/L (14-36); Bilirubin,Total 0.3 mg/dl (0.2-1.3); Blood Urea Nitrogen 14 mg/dl (7-17); Calcium 9.1 mg/dl (8.4-10.2); Carbon Dioxide 27 mmol/L (22.0-30.0); Chloride 103 mmol/L (98-107); Chol/HDL Ratio 4.2 (1-3.5); Cholesterol 142 mg/dl (140-200); Estimated Glomerular Filt Rate 89 ml/min (>60); GFR (African American) 107 ML/MIN (>60); Globulin 3.5 g/dL (1.3-3.2); Glucose 153 mg/dl (74-100); HDL Cholesterol 34 mg/dl (40-60); Potassium 4.1 mmoL/L (3.5-5.1); Sodium 138 mmol/L (136-145); Total Protein,Serum 7.4 g/dl (6.3-8.2); Triglycerides 87 mg/dl (30-150); VLDL Cholesterol 17 mg/dL (0-40)
[2020-12-04 14:19] LABS: Direct LDL Cholesterol 81.42 mg/dL (100-129)
[2020-12-04 14:23] LABS: Basophils % 0.2 % (0.1-2.0); Eosinophils # 0.1 K/mm3 (0.0-0.4); Eosinophils % 0.8 % (0.1-12.0); Hematocrit 39.4 % (37.0-47.0); Hemoglobin 12.6 g/dL (12.2-16.2); Lymphocytes # 1.5 K/mm3 (0.7-4.5); Lymphocytes % 15.2 % (10-50); Mean Corpuscular Hemoglobin 27.8 pg (27.0-31.2); Mean Corpuscular Volume 86.9 fl (81-99); Mean Platelet Volume 9.4 fl (7.4-10.4); Monocytes # 0.4 K/mm3 (0.1-1.0); Monocytes % 3.6 % (1.7-9.3); Neutrophils # 8.1 K/mm3 (1.8-7.8); Neutrophils % 80.2 % (37.0-80.0); Platelet Count 290 K/mm3 (142-424); Red Blood Count 4.54 M/mm3 (4.20-5.40); Red Cell Distribution Width 13.6 % (11.5-17.5); White Blood Count 10.1 K/mm3 (4.8-10.8)
[2020-12-04 14:42] LABS: Thyroid Stimulating Hormone 1.14 uIU/mL (0.465-4.68)
[2020-12-04 15:00] LABS: Vitamin B12 283 pg/mL (239-931)
== END ==
PROVIDERS: Visit Provider Physician Assistant
DX: Z00.00 Encounter for general adult medical examination without abnormal findings (principal); R73.09 Other abnormal glucose; I10 Essential (primary) hypertension; Z79.899 Other long term (current) drug therapy
CPT/HCPCS: 80053; 80061; 82607; 83036; 84439; 84443; 85025

== ENCOUNTER → 2020-12-09 13:13 | Outpatient (CLI) | payer OTHER, SELFPAY ==
--- NOTE | 2020-12-09 13:17 | US_ITS ---
APPROVED REPORT Exam Type: Ankle to Brachial Index Pay Station Collector: Fortunato RCS, RVS Indications Cold feet and toes, lt 2nd digit purple Pressures/Indices Right Indices Left Indices Brachial 163.00 mmHg Brachial 168.00 mmHg Low Thigh 171.00 mmHg 1.02 Low Thigh 180.00 mmHg 1.07 Calf 189.00 mmHg 1.13 Calf 175.00 mmHg 1.04 Ankle(PT) 157.00 mmHg 0.93 Ankle(PT) 179.00 mmHg 1.07 Ankle(DP) 167.00 mmHg 0.99 Ankle(DP) 180.00 mmHg 1.07 Digit 93.00 mmHg 0.55 Digit 101.00 mmHg 0.60 Findings RT IVY=0.99 LT IVY=1.07 RT TPI=0.55 LT TPI=0.60 Conclusion RT IVY=0.99 LT IVY=1.07 RT TPI=0.55 LT TPI=0.60 Normal appearing resting noninvasive lower extremity arterial study. Electronically signed by : Adolfo Hicks MD 12/09/2020 15:18:52
== END ==
PROVIDERS: PCP Physician Assistant; Visit Provider Physician Assistant
DX: R20.0 Anesthesia of skin (principal); R20.2 Paresthesia of skin; R09.89 Other specified symptoms and signs involving the circulatory and respiratory systems
CPT/HCPCS: 93923

== ENCOUNTER → 2021-01-09 06:23 | Outpatient (CLI) | payer OTHER, SELFPAY ==
--- NOTE | 2021-01-09 06:24 | CA_ITS ---
APPROVED REPORT EXAM: Comprehensive 2D, Doppler, and color-flow Echocardiogram [employer] Melter: Kandace Vallejo CRT Ht: 5 ft 9 in Wt: 282lbs BSA: 2.39 BP: 176/85 mmHg Indications: Chest Pain, Shortness of Breath, Diabetes, Peripheral Edema, Hyperlipidemia, Hypertension/HDD 2D Dimensions LVOT 1.81 cm (M/F) 1.5-2.5 LA Volume 68.00 mL LA Volume Index 28.50 mL/m2 (M/F) 16-34 M-Mode Dimensions RVDd 3.34 cm (0.9-2.6) LA Diam 3.93 cm (1.9-4.0) LVDd 4.86 cm (3.5-5.7) Ao Diam 3.20 cm (2.0-3.7) LVDs 3.34 cm (3.5-5.7) IVSd 1.59 cm (0.6-1.1) PWd 0.95 cm (0.6-1.1) EF (Teich) 59.00% FS 31.30% EDV (Teich) 110.70 mL ESV (Teich) 45.40 mL LV Diastology E Decel Time 283.00 (160-240 msec) E/A Ratio 1.27 MED E' 9.30 (< 7 cm/sec) MED A' 8.10 cm/s E'/MED E' Ratio 9.68 (>14) LAT E' 10.20 (<10 cm/sec) LAT A' 7.00 cm/s E/LAT E' Ratio 8.82 (>14) Aortic Valve AO Peak GR. 10.90 mmHg Mitral Valve MV A Velocity 71.00 (40-130 cm/s) E/A Ratio 1.27 MV Decel. Time 283.00 (160-240 ms) Pulmonary Valve PV Peak Velocity 93.00 (50-150 cm/s) Tricuspid Valve TR P. Velocity 272.00 cm/s RAP Estimate 10.00 mmHg RVSP 39.70 mmHg Left Ventricle Left atrium is mildly enlarged, left ventricle is normal size, mild concentric left ventricular hypertrophy, visually estimated ejection fraction 55% with no regional wall motion abnormality, diastolic parameters are inconclusive. Right Ventricle Right atrium and right ventricle are mildly enlarged with normal contractility. Aortic Valve Aortic valve is minimally thickened and fibrosed, there is no aortic stenosis or aortic insufficiency. Mitral Valve Mitral valve is grossly normal, there is trace mitral regurgitation. Tricuspid Valve Tricuspid grossly normal, there is trace tricuspid regurgitation, tricuspid regurgitation jet velocity is inadequate for calculation of the right ventricular systolic pressure. Pulmonic Valve Pulmonic valve is poorly visualized. Great Vessels Aortic root is normal size. Pericardium No significant pericardial effusion noted. Conclusion 1. Mild biatrial alignment, normal left ventricular size, mild concentric left ventricular hypertrophy, visually estimated ejection fraction 55% with no regional wall motion abnormality. Diastolic parameters are inconclusive. 2. Mildly enlarged right ventricle with normal contractility. 3. Trace mitral and tricuspid regurgitation. 4. No significant pericardial effusion noted. Electronically signed by : Cliff Arnold, 01/09/2021 15:00:40
--- NOTE | 2021-01-09 06:24 | NM_ITS ---
APPROVED REPORT Exam: Nuclear Stress Test Indication: abn ecg..hypertension..diabetes..family hx Patient Location: Outpatient Stress Tech: Francisca Lennon [place] Tech:JEANINE Morales RT(R)(N) Ht: 5 ft 9 in Wt: 282 lbs Bra Size: 42c HR: 59 bpm BP: 167/83 mmHg BSA: 2.39 m2 BMI: 41.6 History: abn ecg..hypertension..diabetes..family hx Procedure: Patient exercised on Tray protocol 7.15 minutes and sec, resting heart rate 59 bpm, resting blood pressure 167/83 mmHg, with exercise maximum heart rate achived was 156 bpm which is 92 % of the maximum predicted heart rate and blood pressure was 226/80 mmHg. Patient denied any complaint of chest pain. Patient has Good exercise capacity, achieved 10.1 METs of workload on treadmill, the blood pressure response to exercise was Hypertensive. Electrocardiogram Resting electrocardiogram showed sinus rhythm, with exercise there is [address] segment depression noted in the baseline EKG which was more pronounced in the recovery. The EKG portion of the exercise Myoview is positive for ischemia. Cardiac Stress and Resting SPECT Images: Cardiac Stress and Resting SPECT images were obtained using technetium 99m Myoview 30.2 mCi stress and 10.27 mCi at rest. Gated SPECT for analysis of segmental wall motion and calculation of the ejection fraction also done. Prone images were also obtained. Cardiac stress and resting SPECT images show uniform myocardial activity without segmental perfusion abnormality, computer derived ejection fraction is 58% with no regional wall motion abnormality, right ventricle is normal size and contractility. Conclusion: 1. The EKG portion of the exercise Myoview is positive for ischemia, patient has good exercise capacity achieved 10.1 METs of workload on treadmill, the blood pressure response to exercise was hypertensive, there was no exercise-induced chest discomfort. 2. No scintigraphic evidence of reversible ischemia seen, computer derived ejection fraction is 58% with no regional wall motion abnormality, right ventricle is normal size and contractility. There is no transient ischemic dilatation of the left ventricle seen. Electronically signed by : Cliff Arnold, 01/09/2021 15:49:13
--- NOTE | 2021-01-09 08:00 | CA_ITS ---
APPROVED REPORT Exam: Exercise Treadmill Ht: 5 ft 9 in Wt: 282 lbs BSA: 2.39 m2 HR: 59 bpm BP: 167/83 mmHg Rhythm: Bradycardia Medical History Medical History: HTN, Diabetes Allergies: No known drug allergies Cardiac Risk Factors: HTN, FHX of CAD Stress Test Details Test: Exercise stress testing was performed using a Pepe protocol. HR Resting HR: 59 bpm Max Heart Rate (APMHR): 170.542757 bpm Max HR Achieved: 154 bpm Target HR (85% APMHR): 144.209400 bpm % of APMHR: 90.59 Recovery HR: 85 bpm BP Resting BP: 167.0/83.0 mmHg Max BP: 226.0/80.0 mmHg Recovery BP: 173.0/75.0 mmHg ECG Resting ECG: SINUS BRADYCARDIA, OTHERWISE NORMAL Stress ECG Conclusion EXERCISED 7:15 ON PEPE PROTOCOL. MAX HR 156. % OF PM 92%. MAX BP 226/80. METS 10.1. TEST STOPPED DUE TO SOA, FATIGUE. NO CHEST PAIN. OCC PAC. DURING EXERCISE MOTION ARTIFACT PRECLUDES ACCURATE INTERP. IN RECOVERY THERE IS APPROX [address] DEPRESSION INFERIORLY AND HORIZONTAL ST DEPRESSION LATERALLY. EQUIVOCAL EKG CHANGES FOR ISCHEMIA. Milestone SystemsVIEW IMAGE REPORTED SEPERATELY. Electronically signed by : Cliff Arnold, 01/09/2021 15:46:27
== END ==
PROVIDERS: PCP Physician Assistant; Visit Provider Urology
DX: R00.2 Palpitations (principal); R60.0 Localized edema; R94.31 Abnormal electrocardiogram [ECG] [EKG]
CPT/HCPCS: 78452; 93017; 93306; A9502

== ENCOUNTER → 2021-02-19 15:02 | Outpatient (CLI) | payer OTHER, SELFPAY | PROVIDERS: PCP Physician Assistant; Visit Provider Physician Assistant | DX: Z71.3 Dietary counseling and surveillance (principal); E11.9 Type 2 diabetes mellitus without complications | CPT/HCPCS: 97802 ==

== ENCOUNTER → 2021-03-26 12:52 | Outpatient (CLI) | payer OTHER, SELFPAY ==
[2021-03-26 13:47] LABS: Basophils % 0.2 % (0.1-2.0); Eosinophils # 0.2 K/mm3 (0.0-0.4); Eosinophils % 1.5 % (0.1-12.0); Hemoglobin 12.1 g/dL (12.2-16.2); Lymphocytes # 1.6 K/mm3 (0.7-4.5); Lymphocytes % 14.3 % (10-50); Mean Corpuscular HGB Conc 33.5 g/dL (31.8-35.4); Mean Corpuscular Hemoglobin 28.2 pg (27.0-31.2); Mean Corpuscular Volume 84.2 fl (81-99); Mean Platelet Volume 9.3 fl (7.4-10.4); Monocytes # 0.5 K/mm3 (0.1-1.0); Neutrophils # 9.2 K/mm3 (1.8-7.8); Neutrophils % 80.1 % (37.0-80.0); Platelet Count 295 K/mm3 (142-424); Red Blood Count 4.27 M/mm3 (4.20-5.40); Red Cell Distribution Width 13.8 % (11.5-17.5); White Blood Count 11.4 K/mm3 (4.8-10.8)
[2021-03-26 14:04] LABS: Chloride 99 mmol/L (98-107); Sodium 138 mmol/L (136-145)
[2021-03-26 14:05] LABS: Potassium 3.6 mmoL/L (3.5-5.1)
[2021-03-26 14:07] LABS: Albumin/Globulin Ratio 1.2 (1.1-1.8); Blood Urea Nitrogen 16 mg/dl (7-17); Estimated Glomerular Filt Rate 76 ml/min (>60); GFR (African American) 92 ML/MIN (>60); Globulin 3.4 g/dL (1.3-3.2); Total Protein,Serum 7.4 g/dl (6.3-8.2)
[2021-03-26 14:08] LABS: Calcium 9.3 mg/dl (8.4-10.2); Glucose 137 mg/dl (74-100); HDL Cholesterol 35 mg/dl (40-60)
[2021-03-26 14:13] LABS: Amphetamine/Metha Screen,Urine Positive ng/ml (<1000); Barbiturates Screen,Urine Negative ng/ml (<200)
[2021-03-26 14:14] LABS: Benzodiazepines Screen,Urine Negative ng/ml (<200)
[2021-03-26 14:15] LABS: Cannabinoid Screen,Urine Negative ng/ml (<50); Cocaine Screen,Urine Negative ng/ml (<300)
[2021-03-26 14:16] LABS: Methadone Screen,Urine Negative ng/ml (<300)
[2021-03-26 14:17] LABS: Opiate Screen,Urine Negative ng/ml (<300); Phencyclidine Screen,Urine Negative ng/ml (<25)
[2021-03-26 14:24] LABS: Free T4 (Free Thyroxine) 1.09 ng/dl (0.78-2.19)
[2021-03-26 14:25] LABS: Alanine Aminotransferase 22 U/L (12-78); Alkaline Phosphatase 77 U/L (38-126); Anion Gap 13.6 mEq/L (5-15); Aspartate Amino Transferase 22 U/L (14-36); Bilirubin,Total 0.4 mg/dl (0.2-1.3); Carbon Dioxide 29 mmol/L (22.0-30.0)
[2021-03-26 14:26] LABS: Chol/HDL Ratio 3.4 (1-3.5); Cholesterol 120 mg/dl (140-200); Triglycerides 88 mg/dl (30-150); VLDL Cholesterol 18 mg/dL (0-40)
[2021-03-26 14:27] LABS: 25-OH Vitamin D, Total 40.2 ng/mL (30-100)
[2021-03-26 14:35] LABS: Direct LDL Cholesterol 66.21 mg/dL (100-129)
[2021-03-26 14:44] LABS: Thyroid Stimulating Hormone 2.14 uIU/mL (0.465-4.68)
[2021-03-26 16:13] LABS: Hemoglobin A1C 6.8 % (4.0-6.0)
== END ==
PROVIDERS: Visit Provider Physician Assistant
DX: D50.9 Iron deficiency anemia, unspecified (principal); E11.9 Type 2 diabetes mellitus without complications; E55.9 Vitamin D deficiency, unspecified; E78.5 Hyperlipidemia, unspecified; I10 Essential (primary) hypertension; Z79.899 Other long term (current) drug therapy
CPT/HCPCS: 80053; 80061; 80305; 82043; 82306; 83036; 84439; 84443; 85025

== ENCOUNTER 2021-05-12 10:36 | Emergency (ER) | payer OTHER, SELFPAY ==
[2021-05-12 11:30] VITALS: BP 130/58; PULSE 74; RESP 19; TEMP 36.7; O2SAT 99; BMI 45.8
--- NOTE | 2021-05-12 12:08 | HMH.EDUTC ---
[facility] [place] Clinical Impression: Rash Disposition: Home, Self-Care Condition on Discharge: Good Instructions: Insect Bites (Alternative Therapy), Insect Bites and Stings, DI for Insect Bites and Stings, DI for Rash Additional Instructions: Use Hydrocortisone cream as prescribed on rash Oatmeal bathes may help with itching and help to dry up rash Calamine lotion may help to dry up the rash Over the counter Benadryl may help with itching if you are able to take it Follow up with your Family Doctor if no improvement or any worsening of symptoms Prescriptions: Hydrocortisone [Hydrocortisone 2.5% Cream 28gm Tube] 1 applicatio TOPICAL BID #1 tube Transmission Status: Received by [facility] #[id number] Referrals: Jenae Ellis PA [Primary Care Provider] - As needed Time of Disposition: 12:15 Medical Decision Making - Deyvi Inquiry Pt receiving controlled substance: No Deyvi was queried for this patient: No Vital Signs: 05/12/21 11:30 05/12/21 12:23 Temperature 98.0 F 98.0 F Temperature Source Oral Pulse Rate 74 Pulse Rate [Right Brachial] 74 Respiratory Rate 19 19 Blood Pressure 130/58 L Blood Pressure [Right Arm] 130/58 L Blood Pressure Mean [Right Arm] 82 Blood Pressure Source [Right Arm] Automatic Cuff Blood Pressure Position [Right Arm] Sitting 02 Sat by Pulse Oximetry 99 Oxygen Delivery Method Room Air Orders (Tests/Meds): ED MEDICATIONS Discontinued Medications Generic Name Dose Route Start Last Admin Trade Name Freq PRN Reason Stop Dose Admin Methylprednisolone Sodium Succinate 125 mg 05/12/21 12:11 05/12/21 12:19 Methylprednisolone Sod Succ 125mg Vial IM 05/12/21 12:12 125 mg ONCE ONE Administration [facility] [place] HPI - General Stated complaint: possible poison oak on arms/legs Time Seen by Provider: 05/12/21 12:09 Mode of Arrival: Ambulatory Source of Information: Patient Limitations: No Limitations Description of Symptoms (Recalled from Triage Doc. by RN): PATIENT C/O POISON YARED/SUMAC ALL OVER X 2 DAYS HEENT Symptoms (Recalled from RN notes): No Resp Symptoms (Recalled from RN notes): No Skin Symptoms (Recalled from RN notes): Yes MS Symptoms (Recalled from RN notes): No Functional Status (Recalled from RN notes): WNL - History of Present Illness Provider Complaint: Patient states that she was recently camping and riding horses and not sure if something may have bitten her or if she got into poison yared, poison oak or sumac State that all of them was around her but now she is having little bumps all over her legs, abdomen and arms and they are fluid filled and pop when she scratches them and today she was still itching so she came in to see if she could get something - Related Data Home Medications Medication Instructions Recorded Confirmed Ferrous Sulfate [Slow Release Iron] 143 mg PO DAILY 04/24/20 03/26/21 mecobalamin (vitamin B12) 1,000 1,000 mcg PO DAILY 01/29/21 03/26/21 mcg chewable tablet Previous Rx's Medication Instructions Recorded cyclobenzaprine 5 mg tablet 5 mg PO TID PRN #42 tab 03/13/19 venlafaxine 75 mg capsule,extended 150 mg PO DAILY #180 cap 08/14/20 release 24 hr aspirin 81 mg tablet,delayed 81 mg PO DAILY #30 tab 12/16/20 release atorvastatin 10 mg tablet 10 mg PO DAILY #30 tab 12/16/20 meloxicam 15 mg tablet 15 mg PO DAILY #90 tab 12/23/20 dextroamphetamine-amphetamine ER 50 mg PO DAILY #60 cap 03/26/21 25 mg 24hr capsule,extend release fluoxetine 20 mg capsule 20 mg PO DAILY PRN #90 cap 04/09/21 lisinopril 20 1 tab PO DAILY #30 tab 04/09/21 mg-hydrochlorothiazide 25 mg tablet metformin 1,000 mg tablet,extended 1,000 mg PO DAILY #90 tab 04/24/21 release 24hr semaglutide 7 mg tablet 7 mg PO DAILY #30 tab 04/30/21 Hydrocortisone [Hydrocortisone 1 applicatio TOPICAL BID #1 tube 05/12/21 2.5% Cream 28gm Tube] Allergies Allergy/AdvReac Type Severity Reaction Status Date / Time No Known Allergies Al
[2021-05-12 12:23] VITALS: BP 130/58; PULSE 74; RESP 19; TEMP 36.7; O2SAT 99
== END 2021-05-12 12:46 | disposition home or self-care (01) ==
PROVIDERS: Emergency Provider Nurse Practitioner; PCP Physician Assistant
DX: L25.9 Unspecified contact dermatitis, unspecified cause (principal); E11.9 Type 2 diabetes mellitus without complications; E78.5 Hyperlipidemia, unspecified; I10 Essential (primary) hypertension; D64.9 Anemia, unspecified; Z79.899 Other long term (current) drug therapy
CPT/HCPCS: 96372; 99202; G0463

== ENCOUNTER → 2021-08-05 08:56 | Outpatient (CLI) | payer OTHER, SELFPAY ==
[2021-08-05 09:36] LABS: Basophils % 0.3 % (0.1-2.0); Eosinophils # 0.1 K/mm3 (0.0-0.4); Eosinophils % 0.9 % (0.1-12.0); Hemoglobin 11.9 g/dL (12.2-16.2); Lymphocytes # 1.5 K/mm3 (0.7-4.5); Lymphocytes % 14.8 % (10-50); Mean Corpuscular HGB Conc 31.4 g/dL (31.8-35.4); Mean Corpuscular Hemoglobin 26.7 pg (27.0-31.2); Mean Platelet Volume 9.1 fl (7.4-10.4); Monocytes # 0.4 K/mm3 (0.1-1.0); Monocytes % 4.3 % (1.7-9.3); Neutrophils # 8.2 K/mm3 (1.8-7.8); Neutrophils % 79.7 % (37.0-80.0); Platelet Count 341 K/mm3 (142-424); Red Blood Count 4.47 M/mm3 (4.20-5.40); Red Cell Distribution Width 14.2 % (11.5-17.5); White Blood Count 10.2 K/mm3 (4.8-10.8)
[2021-08-05 10:17] LABS: Iron 53 ug/dL (37-170)
[2021-08-05 10:27] LABS: Total Iron Binding Capacity 351 ug/dL (265-497)
[2021-08-05 10:53] LABS: Ferritin 17.8 ng/ml (6.24-137)
== END ==
PROVIDERS: Visit Provider Internal Medicine Medical Oncology
DX: D50.9 Iron deficiency anemia, unspecified (principal)
CPT/HCPCS: 36415; 82728; 83540; 83550; 85025

== ENCOUNTER 2021-08-13 12:56 | Outpatient (CLI) | payer OTHER, SELFPAY ==
[2021-08-13 13:20] VITALS: BP 127/75; PULSE 64; RESP 18; O2SAT 99
[2021-08-13 14:00] VITALS: BP 138/71; PULSE 61; RESP 18; O2SAT 95
== END 2021-08-13 14:00 | disposition home or self-care (01) ==
LOC: INF 12:57
PROVIDERS: PCP Physician Assistant; Visit Provider Internal Medicine Medical Oncology
DX: D50.9 Iron deficiency anemia, unspecified (principal)
CPT/HCPCS: 96365; J1439

== ENCOUNTER 2021-08-20 07:50 | Outpatient (CLI) | payer OTHER, SELFPAY ==
[2021-08-20 08:40] VITALS: BP 129/73; PULSE 71; RESP 18; TEMP 36.4; O2SAT 100
[2021-08-20 09:15] VITALS: BP 144/71; PULSE 76; RESP 18; O2SAT 99
== END 2021-08-20 09:15 | disposition home or self-care (01) ==
LOC: INF 07:51
PROVIDERS: PCP Physician Assistant; Visit Provider Internal Medicine Medical Oncology
DX: D50.9 Iron deficiency anemia, unspecified (principal)
CPT/HCPCS: 96365; J1439

== ENCOUNTER → 2021-11-05 16:00 | Outpatient (CLI) | payer OTHER, SELFPAY ==
[2021-11-05 15:14] LABS: Chloride 96 mmol/L (98-107)
[2021-11-05 15:15] LABS: Basophils # 0.1 K/mm3 (0-0.2); Basophils % 1.1 % (0.1-2.0); Eosinophils # 0.1 K/mm3 (0.0-0.4); Eosinophils % 1.2 % (0.1-12.0); Hematocrit 40.6 % (37.0-47.0); Hemoglobin 12.7 g/dL (12.2-16.2); Lymphocytes # 1.6 K/mm3 (0.7-4.5); Mean Corpuscular HGB Conc 31.3 g/dL (31.8-35.4); Mean Corpuscular Hemoglobin 28.3 pg (27.0-31.2); Mean Corpuscular Volume 90.3 fl (81-99); Mean Platelet Volume 9.6 fl (7.4-10.4); Monocytes # 0.4 K/mm3 (0.1-1.0); Monocytes % 3.8 % (1.7-9.3); Neutrophils # 7.6 K/mm3 (1.8-7.8); Neutrophils % 77.9 % (37.0-80.0); Platelet Count 334 K/mm3 (142-424); Potassium 4.1 mmoL/L (3.5-5.1); Red Blood Count 4.49 M/mm3 (4.20-5.40); Red Cell Distribution Width 14.7 % (11.5-17.5); Sodium 132 mmol/L (136-145); White Blood Count 9.8 K/mm3 (4.8-10.8)
[2021-11-05 15:17] LABS: Alanine Aminotransferase 29 U/L (12-78); Alkaline Phosphatase 59 U/L (38-126); Anion Gap 9.1 mEq/L (5-15); Aspartate Amino Transferase 34 U/L (14-36); Bilirubin,Total 0.4 mg/dl (0.2-1.3); Blood Urea Nitrogen 18 mg/dl (7-17); Carbon Dioxide 31 mmol/L (22.0-30.0); Cholesterol 148 mg/dl (140-200); Estimated Glomerular Filt Rate 76 ml/min (>60); GFR (African American) 92 ML/MIN (>60); Iron 72 ug/dL (37-170); Triglycerides 103 mg/dl (30-150); VLDL Cholesterol 21 mg/dL (0-40)
[2021-11-05 15:18] LABS: Albumin Level 4.1 g/dl (3.5-5.0); Albumin/Globulin Ratio 1.3 (1.1-1.8); Calcium 8.4 mg/dl (8.4-10.2); Chol/HDL Ratio 4.1 (1-3.5); Globulin 3.2 g/dL (1.3-3.2); Glucose 127 mg/dl (74-100); HDL Cholesterol 36 mg/dl (40-60); Total Protein,Serum 7.3 g/dl (6.3-8.2)
[2021-11-05 15:42] LABS: T4 (Thyroxine) 7.7 ug/dl (5.53-11.0)
[2021-11-05 15:51] LABS: Total Iron Binding Capacity 282 ug/dL (265-497)
[2021-11-05 15:52] LABS: Direct LDL Cholesterol 89.56 mg/dL (100-129)
[2021-11-05 15:55] LABS: Thyroid Stimulating Hormone 1.15 uIU/mL (0.465-4.68)
[2021-11-05 15:59] LABS: Ferritin 139 ng/ml (6.24-137)
[2021-11-05 16:03] LABS: 25-OH Vitamin D, Total 24.2 ng/mL (30-100)
[2021-11-05 17:02] LABS: Folate 9.73 ng/mL; Vitamin B12 > 1000 pg/mL (239-931)
[2021-11-05 17:19] LABS: Hemoglobin A1C 7.2 % (4.0-6.0)
== END ==
PROVIDERS: Visit Provider Physician Assistant
DX: E11.9 Type 2 diabetes mellitus without complications (principal); E55.9 Vitamin D deficiency, unspecified; M79.674 Pain in right toe(s); M79.675 Pain in left toe(s); Z79.84 Long term (current) use of oral hypoglycemic drugs
CPT/HCPCS: 80053; 80061; 82306; 82607; 82728; 82746; 83036; 83540; 83550; 84436; 84443; 85025

== ENCOUNTER → 2021-11-21 08:59 | Outpatient (CLI) | payer OTHER, SELFPAY ==
[2021-11-21 09:36] LABS: Basophils % 0.3 % (0.1-2.0); Eosinophils # 0.1 K/mm3 (0.0-0.4); Eosinophils % 0.5 % (0.1-12.0); Hematocrit 42.2 % (37.0-47.0); Lymphocytes # 1.6 K/mm3 (0.7-4.5); Mean Corpuscular HGB Conc 33.2 g/dL (31.8-35.4); Mean Corpuscular Hemoglobin 28.9 pg (27.0-31.2); Mean Corpuscular Volume 87.1 fl (81-99); Mean Platelet Volume 8.9 fl (7.4-10.4); Monocytes # 0.5 K/mm3 (0.1-1.0); Monocytes % 4.5 % (1.7-9.3); Neutrophils # 9.2 K/mm3 (1.8-7.8); Neutrophils % 80.6 % (37.0-80.0); Platelet Count 320 K/mm3 (142-424); Red Blood Count 4.84 M/mm3 (4.20-5.40); Red Cell Distribution Width 13.5 % (11.5-17.5); White Blood Count 11.4 K/mm3 (4.8-10.8)
[2021-11-21 10:01] LABS: Alanine Aminotransferase 28 U/L (12-78); Albumin Level 4.2 g/dl (3.5-5.0); Albumin/Globulin Ratio 1.4 (1.1-1.8); Alkaline Phosphatase 61 U/L (38-126); Anion Gap 12.4 mEq/L (5-15); Aspartate Amino Transferase 29 U/L (14-36); Bilirubin,Total 0.6 mg/dl (0.2-1.3); Blood Urea Nitrogen 15 mg/dl (7-17); Carbon Dioxide 33 mmol/L (22.0-30.0); Chloride 94 mmol/L (98-107); Estimated Glomerular Filt Rate 76 ml/min (>60); GFR (African American) 92 ML/MIN (>60); Globulin 3.1 g/dL (1.3-3.2); Glucose 149 mg/dl (74-100); Potassium 4.4 mmoL/L (3.5-5.1); Sodium 135 mmol/L (136-145); Total Protein,Serum 7.3 g/dl (6.3-8.2)
[2021-11-21 10:06] LABS: C-Reactive Protein 20.4 mg/L (0-4)
[2021-11-21 11:11] LABS: Erythrocyte Sedimentation Rate 26 mm/hr (0-20)
[2021-11-22 09:05] LABS: RA Latex Turbid. <10.0 IU/mL (<14.0)
[2021-11-22 23:16] LABS: Lupus Reflex Interpretation Comment: (.); PTT-LA 35.7 sec (0.0-51.9); dRVVT 45.8 sec (0.0-47.0)
[2021-11-23 16:19] LABS: Anti-Centromere B Antibodies <0.2 AI (0.0-0.9); Anti-DNA (DS) Ab Qn <1 IU/mL (0-9); Anti-Jo-1 <0.2 AI (0.0-0.9); Anti-Smith Antibody <0.2 AI (0.0-0.9); Antichromatin Antibodies <0.2 AI (0.0-0.9); Antiscleroderma-70 Antibodies <0.2 AI (0.0-0.9); RNP Antibodies 0.3 AI (0.0-0.9); Sjogren's Anti-SS-A <0.2 AI (0.0-0.9); Sjogren's Anti-SS-B <0.2 AI (0.0-0.9)
[2021-11-23 21:08] LABS: Anti-Cyclic Citrullinated Pept 7 units (0-19)
== END ==
PROVIDERS: Visit Provider Physician Assistant
DX: G62.9 Polyneuropathy, unspecified (principal)
CPT/HCPCS: 36415; 80053; 85025; 85613; 85651; 86140; 86200; 86225; 86235; 86431

== ENCOUNTER → 2021-12-09 11:43 | Outpatient (CLI) | payer OTHER, SELFPAY ==
--- NOTE | 2021-12-09 11:51 | XR_ITS ---
FINAL REPORT CLINICAL HISTORY: low back pain FINDINGS: Two views were obtained. There is no acute fracture. There is no malalignment. There is mild degenerative change with osteophytes. There are mild vascular calcifications. IMPRESSION: Mild degenerative change. Reviewed, Interpreted and Dictated by Tony Ross III, MD Transcribed by Amilcar Vazquez Authenticated by Tony Ross III, MD on 12/09/2021 01:41:18 PM [facility]
[2021-12-09 15:09] LABS: Vitamin B12 715 pg/mL (239-931)
[2021-12-09 17:47] LABS: Folate 7.82 ng/mL
== END ==
PROVIDERS: PCP Physician Assistant; Visit Provider Specialist
DX: M48.00 Spinal stenosis, site unspecified (principal)
CPT/HCPCS: 36415; 72100; 82607; 82746

== ENCOUNTER → 2021-12-26 07:30 | Outpatient (CLI) | payer OTHER, SELFPAY ==
--- NOTE | 2021-12-26 07:30 | MR_ITS ---
FINAL REPORT CLINICAL HISTORY: spinal stenosis. lbp. intermittent rt hip pain. no injury or trauma. symptoms xyrs. numbness in toes 1-3 in lt foot. numbness in 1-2 toes in rt foot. FINDINGS: Multiplanar MR imaging of the lumbar spine was performed without contrast. On the sagittal T2-weighted images, disc degeneration is seen at multiple levels. Note is made of several hemangiomas. The vertebral alignment is normal. There is no evidence of fracture. The conus has an unremarkable appearance. T12-L1: Small left paracentral disc protrusion is present. There is no significant canal stenosis or neural foraminal narrowing. L1-2: There is no significant canal stenosis or neural foraminal narrowing. L2-3: Right foraminal disc protrusion is present with mild right neural foraminal narrowing. L3-4: An annular bulge is present. There is a small right foraminal disc protrusion. There is no significant canal stenosis or neural foraminal narrowing. L4-5: An annular bulge is present. There is no significant canal stenosis or neural foraminal narrowing. L5-S1: An annular bulge is present. There is a right paracentral disc protrusion which contacts the right S1 nerve root. There is mild right and moderate left neural foraminal narrowing. Note is made of spurring of the right sacroiliac joint. IMPRESSION: Multilevel disc protrusions as detailed above. Right paracentral disc protrusion at L5-S1 contacts the right S1 nerve root. Reviewed, Interpreted and Dictated by Tony Ross III, MD Transcribed by Sammi Miles Authenticated by Tony Ross III, MD on 12/26/2021 09:57:14 AM [facility]
== END ==
PROVIDERS: PCP Physician Assistant; Visit Provider Specialist
DX: M48.00 Spinal stenosis, site unspecified (principal)
CPT/HCPCS: 72148; 76376

== ENCOUNTER → 2022-01-09 11:31 | Outpatient (CLI) | payer OTHER, SELFPAY ==
--- NOTE | 2022-01-09 12:23 | HMH.PMCON ---
Assessment and Plan (1) Disc disease, degenerative, lumbar or lumbosacral Status: Chronic Category: Medical Code(s): M51.37 - Other intervertebral disc degeneration, lumbosacral region (2) Lumbar disc disease with radiculopathy Status: Chronic Category: Medical Code(s): M51.16 - Intervertebral disc disorders with radiculopathy, lumbar region (3) Degenerative disc disease, lumbar Status: Chronic Category: Medical Code(s): M51.36 - Other intervertebral disc degeneration, lumbar region (4) Lumbar disc disease with radiculopathy Status: Chronic Category: Medical Code(s): M51.16 - Intervertebral disc disorders with radiculopathy, lumbar region - Assessment and plan all Dx Assessment and Plan for all problems:: This patient is a very pleasant 1-year-old white female that comes to our clinic today for initial evaluation regarding what she describes is burning in her toes on bilateral feet. Also, right foot numbness at times. Right leg numbness and pain at times below the knee. Patient states the symptoms have been going on for a year or more. She had consultation with podiatry. Podiatry ordered lumbar MRI. Lumbar MRI shows multilevel degenerative disc. Multilevel disc bulge. Most significantly 5 S1 has paracentral disc protrusion which contacts the S1 nerve on the right. I discussed in detail with the patient regarding her lumbar MRI result. We discussed her lumbar back most likely be in the source of her bilateral feet and right leg symptoms. Patient is currently trying to lose weight. Patient denies low back pain. Her main complaint is the bilateral radicular symptoms. I discussed in detail with the patient regarding lumbar MRI. We will start with physical therapy for 6 weeks for the lumbar spine. Diclofenac 75 mg 1 p.o. twice daily. Patient will continue with weight loss management. She will return to see us in the clinic in 6 weeks. Also discussed lumbar epidural steroid injection at the L5-S1 level if necessary. HPI - Data of Consult Patient: new to practice Consult date: 01/09/22 Requesting Physician: Maikel Vallejo CRNA Primary Care Provider: PELON Vee - Consult Narrative Reason for consult: Lumbar Back Pain Bilat Leg Radicular Symtoms History of present illness: Ms. Morrison is a 51 year old female CC: Maikel Vallejo CRNA [facility] History I have reviewed the patient's past medical history: Yes Medical History: Reports:: Asthma, Depression, Diabetes Mellitus Type 2, Hyperlipidemia, Hypertension, Palpitations Denies:: Cancer, Diabetes Mellitus Type 1, Internal Pacemaker, MRSA, Seizures *Have you ever received a pneumonia vaccine?: No *Have you received a flu vaccine this season?: No Other Medical History: Reports: Anemia, Arthritis, Other Laterality Cases: Bilateral: Tonsillectomy Other Surgeries: Yes: Colonoscopy, , Tubal Ligation, Other. No: Pacemaker Amputation: No Fractures: Yes (R ankle) - *Social History Smoking Status: Former smoker Alcohol Intake: current Alcohol Intake Frequency:: holidays/special occasions only Substance Use Type: denies use *Occupational Status:: employed Housing: house Household Members: spouse *Travel in the last 8 weeks: None - Psychiatric History Pschychiatric History:: Reports:: Depression Family Hx:: Cancer, Diabetes, Heart Attack, Hyperlipidemia, Hypertension, Stroke Meds Home Medications Medication Instructions Recorded Confirmed Type cyclobenzaprine 5 mg tablet 5 mg PO TID PRN #42 tab 03/13/19 01/08/22 Rx Ferrous Sulfate [Slow Release Iron] 143 mg PO DAILY 04/24/20 01/08/22 History venlafaxine 75 mg capsule,extended 150 mg PO DAILY #180 cap 08/14/20 01/08/22 Rx release 24 hr mecobalamin (vitamin B12) 1,000 1,000 mcg PO DAILY 01/29/21 01/08/22 History mcg chewable tablet fluoxetine 20 mg capsule 20 mg PO DAILY PRN #90 cap 04/09/21 01/08/22 Rx metformin 1,000 mg tablet,extended 1,000 mg PO DAILY #90 tab 07/28
[2022-01-09 12:33] VITALS: BP 188/85; PULSE 65; RESP 18; O2SAT 97; BMI 41.3
== END ==
PROVIDERS: PCP Physician Assistant; Visit Provider Nurse Anesthetist, Certified Registered
DX: M51.37 Other intervertebral disc degeneration, lumbosacral region (principal); M51.16 Intervertebral disc disorders with radiculopathy, lumbar region
CPT/HCPCS: 99202; G0463

== ENCOUNTER → 2022-02-10 10:16 | Outpatient (CLI) | payer OTHER, SELFPAY ==
[2022-02-10 10:41] LABS: Basophils # 0.1 K/mm3 (0-0.2); Basophils % 1.5 % (0.1-2.0); Eosinophils # 0.1 K/mm3 (0.0-0.4); Eosinophils % 1.2 % (0.1-12.0); Hematocrit 38.2 % (37.0-47.0); Hemoglobin 12.7 g/dL (12.2-16.2); Lymphocytes # 1.3 K/mm3 (0.7-4.5); Lymphocytes % 14.4 % (10-50); Mean Corpuscular HGB Conc 33.2 g/dL (31.8-35.4); Mean Corpuscular Hemoglobin 29.3 pg (27.0-31.2); Mean Corpuscular Volume 88.3 fl (81-99); Mean Platelet Volume 9.4 fl (7.4-10.4); Monocytes # 0.4 K/mm3 (0.1-1.0); Monocytes % 3.8 % (1.7-9.3); Neutrophils # 7.3 K/mm3 (1.8-7.8); Platelet Count 322 K/mm3 (142-424); Red Blood Count 4.33 M/mm3 (4.20-5.40); Red Cell Distribution Width 13.5 % (11.5-17.5); White Blood Count 9.3 K/mm3 (4.8-10.8)
[2022-02-10 11:42] LABS: Chloride 101 mmol/L (98-107)
[2022-02-10 11:43] LABS: Potassium 3.6 mmoL/L (3.5-5.1); Sodium 137 mmol/L (136-145)
[2022-02-10 11:45] LABS: Alanine Aminotransferase 26 U/L (12-78); Alkaline Phosphatase 63 U/L (38-126); Anion Gap 12.6 mEq/L (5-15); Aspartate Amino Transferase 24 U/L (14-36); Bilirubin,Total 0.3 mg/dl (0.2-1.3); Blood Urea Nitrogen 15 mg/dl (7-17); Carbon Dioxide 27 mmol/L (22.0-30.0); Estimated Glomerular Filt Rate 88 ml/min (>60); GFR (African American) 107 ML/MIN (>60)
[2022-02-10 11:46] LABS: Albumin Level 3.6 g/dl (3.5-5.0); Albumin/Globulin Ratio 1.2 (1.1-1.8); Calcium 8.9 mg/dl (8.4-10.2); Glucose 222 mg/dl (74-100); Iron 55 ug/dL (37-170); Total Protein,Serum 6.6 g/dl (6.3-8.2)
[2022-02-10 12:07] LABS: Total Iron Binding Capacity 291 ug/dL (265-497)
[2022-02-10 12:27] LABS: Ferritin 48.4 ng/ml (11.1-264)
== END ==
PROVIDERS: PCP Physician Assistant; Visit Provider Internal Medicine Medical Oncology
DX: D50.9 Iron deficiency anemia, unspecified (principal)
CPT/HCPCS: 36415; 80053; 82728; 83540; 83550; 85025

== ENCOUNTER 2022-02-11 09:00 | Outpatient (RCR) | payer OTHER, SELFPAY ==
--- NOTE | 2022-01-14 13:55 | HMH.PTOPEV ---
PT Outpatient Evaluation Rehab PT Outpatient Evaluation Start: 01/14/22 13:27 Freq: Status: Active Protocol: Document 01/14/22 13:27 LEELA (Rec: 01/14/22 13:54 LEELA [id number]) Electronically Signed By David Moya, PT 01/14/22 13:27 Outpatient Therapy Subjective History Subjective History Pt reports h/o chronic LBP for 10+ yrs, reports exacerbation over the last ~2 years. Pt reports right > left sided LBP with very infrequent radicular s/s (PMH: bilateral LE neuropathy), mostly with BLT-type activity. Pt reports recent MRI has revealed disc issues, and pain management referral has suggested epidural injection. 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 Chief Complaint Pain,Paresthesia,Weakness Symptom Type Ache,Dull,Burning,Numbness, Tingling Symptoms Relieved By Rest/Positioning,Prescription Meds Symptoms Aggravated By Physical Activity,Twisting, Lifting Prior Functional Limitations Lifting,Housework,Recreation Activity Current Functional Limitations Lifting,Housework,Recreation Activity Symptom Description Constant but Variable Level of pain today (0-10) 3 Pain scale - at its best (0-10) 2 Pain scale - at its worst (0-10) 9 Lumbopelvic Eval Posture Thoracic Spine Posture Standing Position Neutral Lumbar Spine Posture Standing Position Increased Lordosis Assistive device Assistive Devices None / NA Gait Observation General Gait Pattern Observation No Deviations/Normal Palapation tenderness right lumbar spinal tenderness Yes: 3/4 (L4-5) paraspinal tenderness Yes: 3/4 buttock tenderness Yes: 3/4 Lumbar/Sacral Palpation Findings Tenderness,Trigger Point, Muscle Guarding Accessory Movement L-spine Vertebrae Accessory Movements [place] [employer] [place] that Elicit Symptoms L4 bilateral L5 bilateral Range of Motion Lumbar Spine Active Flexion Range of 0-90 Motion (degrees) Lumbar Spine Active Extension Range of 0-25 Motion (degrees) Left Lumbar Spine Lateral Flexion Active 0-35 Range of Mo
== END 2022-02-11 09:05 | disposition home or self-care (01) ==
LOC: PT 09:00
PROVIDERS: PCP Physician Assistant; Visit Provider Nurse Anesthetist, Certified Registered
DX: M54.50 Low back pain, unspecified (principal)
CPT/HCPCS: 97110; 97140; 97163

== ENCOUNTER → 2022-02-24 10:11 | Outpatient (CLI) | payer OTHER, SELFPAY ==
[2022-02-24 14:35] LABS: Amphetamine/Metha Screen,Urine Negative ng/ml (<1000)
[2022-02-24 14:36] LABS: Barbiturates Screen,Urine Negative ng/ml (<200)
[2022-02-24 14:37] LABS: Benzodiazepines Screen,Urine Negative ng/ml (<200)
[2022-02-24 14:38] LABS: Cannabinoid Screen,Urine Negative ng/ml (<50); Cocaine Screen,Urine Negative ng/ml (<300)
[2022-02-24 14:39] LABS: Methadone Screen,Urine Negative ng/ml (<300); Opiate Screen,Urine Negative ng/ml (<300)
[2022-02-24 14:40] LABS: Phencyclidine Screen,Urine Negative ng/ml (<25)
== END ==
PROVIDERS: PCP Physician Assistant; Visit Provider Physician Assistant
DX: F90.9 Attention-deficit hyperactivity disorder, unspecified type (principal)
CPT/HCPCS: 80305

== ENCOUNTER → 2022-02-24 14:10 | Outpatient (CLI) | payer OTHER, SELFPAY | PROVIDERS: PCP Emergency Medicine; Visit Provider Emergency Medicine | DX: E11.42 Type 2 diabetes mellitus with diabetic polyneuropathy (principal) ==

== ENCOUNTER → 2022-02-26 12:47 | Outpatient (POV) | payer OTHER, SELFPAY ==
[2022-02-26 13:19] VITALS: BP 165/84; PULSE 64; RESP 18; TEMP 36.9; O2SAT 99; BMI 42.3
--- NOTE | 2022-02-26 15:35 | HMH.PAINSOAP ---
[facility] Pain Management SOAP Note Subjective:: Patient is a pleasant 51-year-old female who presents today for follow-up. Patient is currently being treated for degenerative disc disease of the lumbar spine with lumbar radiculopathy symptoms. Patient recently established with us for low back pain that radiates to bilateral lower extremities. She was complaining of increasing bilateral feet pain. She did say that her A1c was slightly more elevated than usual. When we last saw this patient, we referred the patient to physical therapy for 6 weeks. Patient states that she did significantly well with physical therapy and was discharged early from their care. She continues to see Dr. Garcia for peripheral neuropathy/diabetic neuropathy. She was prescribed gabapentin but currently not taking this medication at this time. She states that she will start taking this again. Rates pain today as 2 out of 10. Review of Systems: General: No recent weight changes, no fever, no sleep disturbances Respiratory: No cough, no shortness of air, no recurring pulmonary infections Cardiovascular/peripheral vascular: No chest pain, no palpitations, no edema, no shortness of breath Gastrointestinal: No new onset incontinence, normal bowel movements reported Genitourinary: No new onset incontinence Musculoskeletal: Low back pain Psychiatric: [Normal mood/affect] Neurological: [Denies weakness in extremities], [denies balance issues] Objective:: Physical Exam: General: Alert and oriented x3, no acute distress, pleasant and cooperative Lungs: Respirations even and unlabored, symmetrical chest expansion Eyes: PERRL Musculoskeletal: Flexion and extension of lumbar [spine] somewhat guarded secondary to pain, [antalgic gait noted] Neurological: Speech clear, no gross sensory deficit Assessment:: Degenerative disc disease of lumbar spine with lumbar radiculopathy symptoms Plan:: Patient is doing significantly well after going through physical therapy. She has been able to increase her activity since doing physical therapy. Patient will continue to do home exercises. I will continue the patient's diclofenac 75 mg twice a day and provide the patient with 1 month worth of refill. She will take this medication as needed for pain. We will follow-up with this patient in 1 year. Patient has been instructed to contact the clinic with any concerns before the next appointment. Dr. Moon has reviewed this note and agrees with this plan of care. This note was dictated using voice recognition software and make contain errors or omissions. [facility] History Medical History: Reports:: Asthma, Depression, Diabetes Mellitus Type 2, Hyperlipidemia, Hypertension, Palpitations Denies:: Cancer, Diabetes Mellitus Type 1, Internal Pacemaker, MRSA, Seizures *Have you ever received a pneumonia vaccine?: No *Have you received a flu vaccine this season?: No Other Medical History: Reports: Anemia, Arthritis, Other Laterality Cases: Bilateral: Tonsillectomy Other Surgeries: Yes: Colonoscopy, , Tubal Ligation, Other. No: Pacemaker Amputation: No Fractures: Yes (R ankle) - *Social History Smoking Status: Former smoker Alcohol Intake: never Alcohol Intake Frequency:: holidays/special occasions only Substance Use Type: denies use *Occupational Status:: employed Housing: house Household Members: spouse *Travel in the last 8 weeks: None - Psychiatric History Pschychiatric History:: Reports:: Depression Family Hx:: Cancer, Diabetes, Heart Attack, Hyperlipidemia, Hypertension, Stroke
== END ==
PROVIDERS: Visit Provider Student in an Organized Health Care Education/Training Program
DX: M51.16 Intervertebral disc disorders with radiculopathy, lumbar region (principal)
CPT/HCPCS: 99212; G0463

== ENCOUNTER → 2022-03-13 09:39 | Outpatient (CLI) | payer OTHER, SELFPAY ==
--- NOTE | 2022-03-13 09:39 | MM_ITS ---
PROCEDURE INFORMATION: Exam: MG Bilateral Screening 3D Mammography Exam date and time: 03/13/2022 9:53 AM Age: 51 years old Clinical indication: Screening. Her mother had breast cancer in her 40s. History of benign right breast biopsy. TECHNIQUE: Imaging protocol: Bilateral Screening tomosynthesis and 2D mammography including computer-aided detection (CAD) when performed. COMPARISON: 1. MG MM DIG SCREENING MAMM BI W/CAD 10/25/2020 9:33 AM 2. MG MM DIG SCREENING MAMM BI W/CAD 10/20/2019 8:01 AM 3. MG MM DIG MAMM DX UNILAT LT CAD 08/14/2019 2:00 PM 4. MG DXLT MM Dig mamm DX unilat LT CAD 10/11/2018 2:30 PM FINDINGS: MAMMOGRAPHY: Breast composition: There are scattered areas of fibroglandular density. Mass: No suspicious mass. Architectural distortion: None. Calcifications: No suspicious calcifications. Asymmetric density: None. Skin thickening: None. Axillary adenopathy: None. Other findings: Right biopsy clip. IMPRESSION: No mammographic evidence of malignancy. Annual screening is recommended unless otherwise clinically indicated. ASSESSMENT: BI-RADS Category 2: Benign
== END ==
PROVIDERS: PCP Physician Assistant; Visit Provider Physician Assistant
DX: Z12.31 Encounter for screening mammogram for malignant neoplasm of breast (principal)
CPT/HCPCS: 77063; 77067

== ENCOUNTER → 2022-04-22 16:52 | Outpatient (CLI) | payer OTHER, SELFPAY ==
[2022-04-22 14:32] LABS: Alanine Aminotransferase 20 U/L (12-78); Albumin Level 3.8 g/dl (3.5-5.0); Albumin/Globulin Ratio 1.2 (1.1-1.8); Alkaline Phosphatase 78 U/L (38-126); Anion Gap 12.9 mEq/L (5-15); Aspartate Amino Transferase 29 U/L (14-36); Blood Urea Nitrogen 19 mg/dl (7-17); Carbon Dioxide 27 mmol/L (22.0-30.0); Chloride 99 mmol/L (98-107); Chol/HDL Ratio 4.3 (1-3.5); Cholesterol 130 mg/dl (140-200); Estimated Glomerular Filt Rate 76 ml/min (>60); GFR (African American) 92 ML/MIN (>60); Globulin 3.2 g/dL (1.3-3.2); Glucose 177 mg/dl (74-100); HDL Cholesterol 30 mg/dl (40-60); Potassium 3.9 mmoL/L (3.5-5.1); Sodium 135 mmol/L (136-145); Triglycerides 121 mg/dl (30-150); VLDL Cholesterol 24 mg/dL (0-40)
[2022-04-22 14:39] LABS: Bilirubin,Total 0.1 mg/dl (0.2-1.3)
[2022-04-22 14:42] LABS: Direct LDL Cholesterol 72.43 mg/dL (100-129)
[2022-04-22 15:11] LABS: Basophils # 0.1 K/mm3 (0-0.2); Basophils % 0.4 % (0.1-2.0); Eosinophils # 0.1 K/mm3 (0.0-0.4); Eosinophils % 0.9 % (0.1-12.0); Hematocrit 39.6 % (37.0-47.0); Hemoglobin 12.8 g/dL (12.2-16.2); Lymphocytes # 1.5 K/mm3 (0.7-4.5); Lymphocytes % 12.9 % (10-50); Mean Corpuscular HGB Conc 32.2 g/dL (31.8-35.4); Mean Corpuscular Hemoglobin 27.6 pg (27.0-31.2); Mean Corpuscular Volume 85.5 fl (81-99); Mean Platelet Volume 10.3 fl (7.4-10.4); Monocytes # 0.5 K/mm3 (0.1-1.0); Monocytes % 4.3 % (1.7-9.3); Neutrophils # 9.3 K/mm3 (1.8-7.8); Neutrophils % 81.5 % (37.0-80.0); Platelet Count 322 K/mm3 (142-424); Red Blood Count 4.63 M/mm3 (4.20-5.40); White Blood Count 11.4 K/mm3 (4.8-10.8)
[2022-04-22 15:23] LABS: Vitamin B12 758 pg/mL (239-931)
[2022-04-22 15:57] LABS: Hemoglobin A1C 7.1 % (4.0-6.0)
== END ==
PROVIDERS: PCP Physician Assistant; Visit Provider Physician Assistant
DX: E11.9 Type 2 diabetes mellitus without complications (principal); E66.9 Obesity, unspecified; Z68.41 Body mass index [BMI] 40.0-44.9, adult; Z79.84 Long term (current) use of oral hypoglycemic drugs; Z79.899 Other long term (current) drug therapy
CPT/HCPCS: 80053; 80061; 82306; 82607; 83036; 84443; 85025

== ENCOUNTER → 2022-04-28 08:34 | Outpatient (POV) | payer OTHER, SELFPAY | PROVIDERS: Visit Provider Dermatology | DX: Z00.00 Encounter for general adult medical examination without abnormal findings (principal) ==

== ENCOUNTER → 2022-05-07 08:29 | Outpatient (CLI) | payer OTHER, SELFPAY ==
--- NOTE | 2022-05-07 08:31 | CT_ITS ---
FINAL REPORT CLINICAL HISTORY: former smoker quit 6 years ago 1ppd x30 years when smoking COMPARISON: 02/16/2018 FINDINGS: CTDI vol (mGy): 2.[address] images of the chest were obtained using the low-dose protocol for screening. There is no evidence of mediastinal or hilar mass or adenopathy. No axillary mass or adenopathy is identified. On the lung window images, no pulmonary mass or suspicious nodule is identified. There are calcified granulomas in the left upper lobe. A focus of presumed scarring is seen in the lateral left lower lobe. There is a tiny nodule measuring 5 mm in the right lower lobe on image number 69, stable from prior exam. IMPRESSION: Lung RADS category 1 . Recommend 12 month followup low-dose CT for further evaluation. Reviewed, Interpreted and Dictated by Tony Ross III, MD Transcribed by Yadi Velasquez Authenticated and [facility]
== END ==
PROVIDERS: PCP Physician Assistant; Visit Provider Physician Assistant
DX: Z87.891 Personal history of nicotine dependence (principal); Z12.2 Encounter for screening for malignant neoplasm of respiratory organs
CPT/HCPCS: 71271

== ENCOUNTER 2022-05-19 08:12 | Emergency (ER) | payer OTHER, SELFPAY ==
[2022-05-19 08:43] VITALS: BP 139/81; PULSE 76; RESP 16; TEMP 36.9; O2SAT 99; BMI 41.3
--- NOTE | 2022-05-19 08:52 | HMH.EDUTC ---
[facility] Disposition Clinical Impression: Strep throat Disposition: Home, Self-Care Condition on Discharge: Good Instructions: Strep Throat, DI for Strep Throat Additional Instructions: Drink plenty of fluids. Take tylenol or ibuprofen for pain or fever. Take the medications as directed. Follow up with your regular doctor. GO TO THE ER FOR ANY WORSENING SYMPTOMS Throw your tooth brush away and get a new one. Prescriptions: Amoxicillin/Potassium Clav [Amox-Clav 875-125 mg Tablet] 1 tab PO BID #20 tab Transmission Status: Received by [facility] #[id number] Benzonatate [Benzonatate 100mg cap] 100 mg PO TIDP PRN #30 cap PRN Reason: Cough Transmission Status: Received by [facility] # methylPREDNISolone [Medrol] 4 mg PO DIRECTED 6 Days #21 packet Transmission Status: Received by [facility] #[id number] Referrals: Jenae Ellis PA [Primary Care Provider] - Time of Disposition: 09:07 Medical Decision Making - Medical Records Medical records reviewed: No: I reviewed the patient's medical records. - Deyvi Inquiry Pt receiving controlled substance: No Vital Signs: 05/19/22 08:43 05/19/22 09:16 Temperature 98.4 F 98.4 F Temperature Source Oral Pulse Rate 76 Pulse Rate [Left] 76 Respiratory Rate 16 16 Blood Pressure 139/81 Blood Pressure [Right Arm] 139/81 Blood Pressure Mean [Right Arm] 100 02 Sat by Pulse Oximetry 99 - Lab Data Lab results reviewed: Yes: I reviewed the patient's lab results. Lab Results 05/19/22 08:45: Strep Scn Rapid Clinic Positive A [facility] HPI - General Stated complaint: Sore throat Time Seen by Provider: 05/19/22 08:52 Mode of Arrival: Ambulatory Source of Information: Patient Limitations: No Limitations Description of Symptoms (Recalled from Triage Doc. by RN): patient comes in with complaints of sore throat. symptoms began 8 days ago HEENT Symptoms (Recalled from RN notes): Yes Resp Symptoms (Recalled from RN notes): No Skin Symptoms (Recalled from RN notes): No MS Symptoms (Recalled from RN notes): No Functional Status (Recalled from RN notes): n/a - History of Present Illness Provider Complaint: She states that she has had a sore throat for the past 1 week. She deneis fever, but she has had chills and body aches. She got worse yesterday, so she came in today. - Related Data Home Medications Medication Instructions Recorded Confirmed Ferrous Sulfate [Slow Release Iron] 143 mg PO DAILY 04/24/20 04/22/22 mecobalamin (vitamin B12) 1,000 1,000 mcg PO DAILY 01/29/21 04/22/22 mcg chewable tablet Aspirin [Low Dose Aspirin EC] 81 mg PO DAILY 08/20/21 04/22/22 semaglutide 14 mg tablet 14 mg PO DAILY tab 12/09/21 04/22/22 Cholecalciferol (Vitamin D3) 25 mcg PO DAILY 01/09/22 04/22/22 [Vitamin D3 1,000 Unit Cap] Meloxicam See Rx Instructions .ROUTE .COMPLEX 02/26/22 04/22/22 Previous Rx's Medication Instructions Recorded cyclobenzaprine 5 mg tablet 5 mg PO TID PRN #42 tab 03/13/19 fluoxetine 20 mg capsule 20 mg PO DAILY PRN #90 cap 04/09/21 albuterol sulfate 90 mcg/actuation 2 inh IH Q6HP PRN #8.5 g 09/10/21 aerosol inhaler gabapentin 300 mg capsule 300 mg PO DAILY #60 cap NS MDD 600 01/08/22 mg Diclofenac Sodium [Diclofenac 75mg 75 mg PO BID #60 tab 02/26/22 Tab] ergocalciferol (vitamin D2) 1,250 See Rx Instructions .ROUTE 03/16/22 mcg (50,000 unit) capsule .COMPLEX #14 capsule metformin 500 mg tablet,extended See Rx Instructions .ROUTE 04/02/22 release 24 hr .COMPLEX #180 tab lisinopril 20 See Rx Instructions .ROUTE 04/16/22 mg-hydrochlorothiazide 25 mg tablet .COMPLEX #90 tab dextroamphetamine-amphetamine ER 25 mg PO BID #60 cap 04/22/22 25 mg 24hr capsule,extend release semaglutide 0.25 mg SQ WEEKLY #1.5 ml 04/22/22 venlafaxine 75 mg capsule,extended 150 mg PO DAILY #180 cap 05/05/22 release 24 hr Amoxicillin/Potassium Clav 1 tab PO BID #20 tab 05/19/22 [Amox-Clav 875-1
[2022-05-19 08:56] LABS: UTC Strep Screen (Rapid) Positive (Negative)
[2022-05-19 09:16] VITALS: BP 139/81; PULSE 76; RESP 16; TEMP 36.9
== END 2022-05-19 09:17 | disposition home or self-care (01) ==
PROVIDERS: Emergency Provider Nurse Practitioner Family; PCP Physician Assistant
DX: J02.0 Streptococcal pharyngitis (principal)
CPT/HCPCS: 87880; 99212; G0463

== ENCOUNTER → 2022-07-03 10:57 | Outpatient (CLI) | payer OTHER, SELFPAY ==
--- NOTE | 2022-07-03 10:58 | CA_ITS ---
APPROVED REPORT EXAM: Comprehensive 2D, Doppler, and color-flow Echocardiogram Gang Vibrator Operator: Anju Obrien RT(R) Ht: 5 ft 9 in Wt: 272lbs BSA: 2.35 BP: 136/80 mmHg Indications: murmur, ex smoker, HTN, DM. 2D Dimensions LVOT 2.15 cm (M/F) 1.5-2.5 LA Volume 51.70 mL LA Volume Index 22.00 mL/m2 (M/F) 16-34 M-Mode Dimensions RVDd 2.98 cm (0.9-2.6) LA Diam 4.24 cm (1.9-4.0) LVDd 5.47 cm (3.5-5.7) Ao Diam 2.54 cm (2.0-3.7) LVDs 3.70 cm (3.5-5.7) IVSd 0.60 cm (0.6-1.1) PWd 1.05 cm (0.6-1.1) EF (Teich) 60.10% FS 32.40% EDV (Teich) 145.60 mL ESV (Teich) 58.10 mL LV Diastology E Decel Time 197.00 (160-240 msec) E/A Ratio 1.2 MED E' 10.00 (< 7 cm/sec) E'/MED E' Ratio 8.93 (>14) LAT E' 7.00 (<10 cm/sec) E/LAT E' Ratio 12.76 (>14) Mitral Valve MV E Max Sumit. 89.00 (40-130 cm/s) MV A Velocity 74.00 (40-130 cm/s) E/A Ratio 1.21 MV Decel. Time 197.00 (160-240 ms) MV PHT 58.00 ms Left Ventricle Left atrium is mildly enlarged, left ventricle is normal size, estimated ejection fraction 55% with no regional wall motion abnormality, diastolic parameters are inconclusive. Right Ventricle Right atrium and right ventricle are mildly enlarged with normal contractility. Aortic Valve Aortic valve is minimally thickened and fibrosed there is no aortic stenosis or aortic insufficiency. Mitral Valve Mitral valve has mild mitral calcification, there is no mitral stenosis, there is trace mitral regurgitation. Tricuspid Valve Tricuspid valve grossly normal, there is trace tricuspid regurgitation, tricuspid regurgitation jet velocity is inadequate for calculation of the right ventricular systolic pressure. Pulmonic Valve Pulmonic valve is poorly visualized. Great Vessels Aortic root is normal size. Inferior vena cava is normal size with normal inspiratory collapse. Pericardium No significant pericardial effusion noted. Conclusion 1. Mild biatrial enlargement, normal left ventricular size, mild concentric left ventricular hypertrophy, estimated ejection fraction 55% with no regional wall motion abnormality, diastolic parameters are inconclusive. 2. Mildly enlarged right ventricle with normal contractility. 3. Trace mitral and tricuspid regurgitation. 4. No significant pericardial effusion. 5. Inferior vena cava is normal size with normal inspiratory collapse. Electronically signed by : Cliff Arnold MD 07/03/2022 13:34:55
== END ==
PROVIDERS: PCP Physician Assistant; Visit Provider Nurse Practitioner Family
DX: R01.1 Cardiac murmur, unspecified (principal)
CPT/HCPCS: 93306

== ENCOUNTER → 2022-08-13 15:00 | Outpatient (CLI) | payer OTHER, SELFPAY ==
[2022-08-13 15:41] LABS: Basophils % 0.3 % (0.1-2.0); Eosinophils # 0.2 K/mm3 (0.0-0.4); Eosinophils % 2.1 % (0.1-12.0); Hematocrit 43.3 % (37.0-47.0); Hemoglobin 13.4 g/dL (12.2-16.2); Lymphocytes # 1.7 K/mm3 (0.7-4.5); Lymphocytes % 15.4 % (10-50); Mean Corpuscular Hemoglobin 27.3 pg (27.0-31.2); Mean Corpuscular Volume 88.3 fl (81-99); Monocytes # 0.6 K/mm3 (0.1-1.0); Neutrophils # 8.6 K/mm3 (1.8-7.8); Neutrophils % 77.2 % (37.0-80.0); Platelet Count 361 K/mm3 (142-424); Red Blood Count 4.91 M/mm3 (4.20-5.40); White Blood Count 11.2 K/mm3 (4.8-10.8)
[2022-08-13 17:14] LABS: Iron 43 ug/dL (37-170)
[2022-08-13 17:25] LABS: Total Iron Binding Capacity 351 ug/dL (265-497)
[2022-08-13 17:52] LABS: Ferritin 46.6 ng/ml (11.1-264)
== END ==
PROVIDERS: PCP Physician Assistant; Visit Provider Internal Medicine Medical Oncology
DX: D50.9 Iron deficiency anemia, unspecified (principal)
CPT/HCPCS: 36415; 82728; 83540; 83550; 85025

== ENCOUNTER → 2022-09-02 14:09 | Outpatient (CLI) | payer OTHER, SELFPAY ==
[2022-09-02 14:59] LABS: Amphetamine/Metha Screen,Urine Positive ng/ml (<1000); Barbiturates Screen,Urine Negative ng/ml (<200)
[2022-09-02 15:01] LABS: Benzodiazepines Screen,Urine Negative ng/ml (<200); Cannabinoid Screen,Urine Negative ng/ml (<50)
[2022-09-02 15:02] LABS: Cocaine Screen,Urine Negative ng/ml (<300); Methadone Screen,Urine Negative ng/ml (<300)
[2022-09-02 15:03] LABS: Opiate Screen,Urine Negative ng/ml (<300)
[2022-09-02 15:04] LABS: Phencyclidine Screen,Urine Negative ng/ml (<25)
== END ==
PROVIDERS: PCP Physician Assistant; Visit Provider Physician Assistant
DX: Z79.899 Other long term (current) drug therapy (principal)
CPT/HCPCS: 80305

== ENCOUNTER → 2022-10-28 18:57 | Outpatient (CLI) | payer OTHER, SELFPAY ==
[2022-10-28 15:06] LABS: Basophils % 0.3 % (0.1-2.0); Eosinophils # 0.1 K/mm3 (0.0-0.4); Eosinophils % 1.2 % (0.1-12.0); Hematocrit 38.7 % (37.0-47.0); Hemoglobin 12.5 g/dL (12.2-16.2); Lymphocytes # 1.6 K/mm3 (0.7-4.5); Lymphocytes % 15.9 % (10-50); Mean Corpuscular HGB Conc 32.2 g/dL (31.8-35.4); Mean Corpuscular Hemoglobin 26.6 pg (27.0-31.2); Mean Corpuscular Volume 82.6 fl (81-99); Mean Platelet Volume 9.9 fl (7.4-10.4); Monocytes # 0.3 K/mm3 (0.1-1.0); Monocytes % 3.4 % (1.7-9.3); Neutrophils # 7.8 K/mm3 (1.8-7.8); Neutrophils % 79.2 % (37.0-80.0); Platelet Count 344 K/mm3 (142-424); Red Blood Count 4.68 M/mm3 (4.20-5.40); Red Cell Distribution Width 14.4 % (11.5-17.5); White Blood Count 9.8 K/mm3 (4.8-10.8)
[2022-10-28 15:10] LABS: Alanine Aminotransferase 16 U/L (12-78); Albumin Level 3.8 g/dl (3.5-5.0); Albumin/Globulin Ratio 1.3 (1.1-1.8); Alkaline Phosphatase 59 U/L (38-126); Anion Gap 9.9 mEq/L (5-15); Aspartate Amino Transferase 23 U/L (14-36); Bilirubin,Total 0.3 mg/dl (0.2-1.3); Blood Urea Nitrogen 17 mg/dl (7-17); Calcium 8.3 mg/dl (8.4-10.2); Carbon Dioxide 25 mmol/L (22.0-30.0); Chloride 107 mmol/L (98-107); Cholesterol 115 mg/dl (140-200); Estimated Glomerular Filt Rate 88 ml/min (>60); GFR (African American) 107 ML/MIN (>60); Glucose 176 mg/dl (74-100); HDL Cholesterol 29 mg/dl (40-60); Potassium 3.9 mmoL/L (3.5-5.1); Sodium 138 mmol/L (136-145); Total Protein,Serum 6.8 g/dl (6.3-8.2); Triglycerides 106 mg/dl (30-150); VLDL Cholesterol 21 mg/dL (0-40)
[2022-10-28 15:21] LABS: Direct LDL Cholesterol 65.56 mg/dL (100-129)
[2022-10-28 15:30] LABS: 25-OH Vitamin D, Total 29.6 ng/mL (30-100)
[2022-10-28 15:43] LABS: Thyroid Stimulating Hormone 1.28 uIU/mL (0.465-4.68)
[2022-10-28 22:32] LABS: Hemoglobin A1C 7.6 % (4.0-6.0)
== END ==
PROVIDERS: PCP Physician Assistant; Visit Provider Physician Assistant
DX: E11.40 Type 2 diabetes mellitus with diabetic neuropathy, unspecified (principal); E55.9 Vitamin D deficiency, unspecified; Z79.899 Other long term (current) drug therapy; Z79.84 Long term (current) use of oral hypoglycemic drugs
CPT/HCPCS: 80053; 80061; 82306; 83036; 84443; 85025

== ENCOUNTER → 2022-11-17 08:45 | Outpatient (CLI) | payer OTHER, SELFPAY ==
--- NOTE | 2022-11-17 09:03 | CT_ITS ---
FINAL REPORT TECHNIQUE: Thin section axial CT images were obtained utilizing a CT angiogram protocol. Coronal and sagittal reformatted images were submitted. This study was performed with techniques to keep radiation doses as low as reasonably achievable (ALARA). Individualized dose reduction techniques using automated exposure control or adjustment of mA and/or kV according to the patient's size were employed. CLINICAL HISTORY: purple painful toes left foot FINDINGS: CTA LOWER EXTREMITIES The distal aorta and KATHI are patent. There is mild vascular calcification. The right common iliac artery is patent. The right common femoral artery and popliteal artery are patent. There is three-vessel runoff to the lower leg. The left common iliac artery is patent. The left common femoral artery and popliteal artery are patent. There is three-vessel runoff to the lower leg. Limited images through the abdomen show a mildly enlarged appendix measuring 7 mm. There is no surrounding inflammation or convincing evidence of appendicitis. There are multiple mildly enlarged inguinal lymph nodes that are nonspecific and likely reactive. IMPRESSION: No evidence of occlusion or significant stenosis. Reviewed, Interpreted and Dictated by Tony Ross III, MD Transcribed by Amilcar Vazquez Authenticated and [facility]
[2022-11-17 09:58] LABS: Blood Urea Nitrogen 18 mg/dl (7-17); Estimated Glomerular Filt Rate 66 ml/min (>60); GFR (African American) 80 ML/MIN (>60)
== END ==
PROVIDERS: PCP Physician Assistant; Visit Provider Physician Assistant
DX: E11.9 Type 2 diabetes mellitus without complications (principal); R09.89 Other specified symptoms and signs involving the circulatory and respiratory systems; Z79.84 Long term (current) use of oral hypoglycemic drugs
CPT/HCPCS: 36415; 73701; 82565; 84520; Q9967

== ENCOUNTER → 2022-12-21 10:28 | Outpatient (CLI) | payer OTHER, SELFPAY ==
--- NOTE | 2022-12-21 10:30 | XR_ITS ---
FINAL REPORT CLINICAL HISTORY: foot pain..prior ankle surgey on rt tendon FINDINGS: AP, oblique and lateral views of the right foot were obtained. There is no prior exam for comparison. There is no acute fracture or dislocation. There is lateral subluxation at the 5th PIP joint with a small erosion at the base of the 5th middle phalanx. There is mild multi joint degenerative disease, most pronounced at the midfoot. There is a small surgical anchor in the calcaneus. Soft tissues are normal. IMPRESSION: No acute osseous abnormality of the right foot. 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 Reviewed, Interpreted and Dictated by Ora Chan MD Transcribed by Destiney Velazquez Authenticated and [facility]
--- NOTE | 2022-12-21 10:30 | XR_ITS ---
FINAL REPORT CLINICAL HISTORY: foot pain FINDINGS: AP, oblique and lateral views of the left foot were obtained. There is no prior exam for comparison. There is no acute fracture or dislocation. There is mild multi joint degenerative disease which is most pronounced in the midfoot and the 1st MTP joint. No bony erosions are identified. Soft tissues are normal. IMPRESSION: No acute osseous abnormality of the left foot. Multi joint degenerative disease. Reviewed, Interpreted and Dictated by Ora Chan MD Transcribed by Destiney Velazquez Authenticated and [facility]
== END ==
PROVIDERS: PCP Physician Assistant; Visit Provider Podiatrist
DX: M79.671 Pain in right foot (principal); M79.672 Pain in left foot; M20.41 Other hammer toe(s) (acquired), right foot; M20.42 Other hammer toe(s) (acquired), left foot
CPT/HCPCS: 73630

== ENCOUNTER 2022-12-28 10:23 | Emergency (ER) | payer OTHER, SELFPAY ==
--- NOTE | 2022-12-28 11:09 | EXP.UTC ---
Discharge Plan Disposition Patient Disposition: Home, Self-Care Condition: Good Prescriptions Prescriptions: New phenazopyridine [Pyridium] 200 mg tablet 200 mg PO Q8H 2 Days Qty: 6 0RF ondansetron 4 mg Tablet,Disintegrating 4 mg PO Q8H PRN (Reason: Nausea) Qty: 12 0RF nitrofurantoin monohyd/m-cryst [Macrobid] 100 mg capsule 100 mg PO BID Qty: 10 0RF Rx Instructions: must administer with a meal/food No Action albuterol sulfate 90 mcg/actuation HFA aerosol inhaler 2 inh IH Q6HP PRN (Reason: Shortness Of Breath Or Wheezing) Qty: 8.5 0RF venlafaxine 75 mg capsule,extended release 24hr 150 mg PO DAILY Qty: 180 3RF Rx Instructions: take 1 capsule by mouth once daily dextroamphetamine-amphetamine 25 mg capsule,extended release 24hr 25 mg PO BID Qty: 60 0RF aspirin 81 MG tablet,delayed release (DR/EC) 81 mg PO DAILY glipizide 10 mg tablet extended release 24hr 10 mg PO DAILY meloxicam 15 mg tablet See Rx Instructions .ROUTE .COMPLEX Rx Instructions: TAKE 1 TABLET(15 MG) BY MOUTH EVERY DAY FOR ARTHRITIS lisinopril-hydrochlorothiazide 20-25 mg tablet See Rx Instructions .ROUTE .COMPLEX Rx Instructions: TAKE 1 TABLET BY MOUTH DAILY FOR BLOOD PRESSURE metformin 500 mg tablet extended release 24 hr See Rx Instructions .ROUTE .COMPLEX Rx Instructions: TAKE 2 TABLETS BY MOUTH ONCE DAILY FOR DIABETES Ozempic 1 mg/dose (4 mg/3 mL) pen injector 1 mg SQ WEEKLY Referrals Follow up/Referrals: Jenae Ellis PA [Primary Care Provider] - See instructions Activity Restrictions/Add. Instructions Additional Instructions/Restrictions: Drink plenty of fluids. Take tylenol or ibuprofen for pain or fever. Take the medications as directed. Follow up with your regular doctor. GO TO THE ER FOR ANY WORSENING SYMPTOMS The pyridium will make your urine turn orange, this is an expected side effect. It will stain your clothes if it comes into contact with them. We will culture the urine. That will tell what bacteria is causing your infection and which antibiotics will treat it best. Sometimes the first antibiotic we prescribe turns out to not work against different bacteria. So, make sure you follow up within 3 days if you are not getting better. Clinical Impressions Clinical Impression: UTI (urinary tract infection) Stand Alone Forms Stand Alone Forms: Work/School Release Instructions Patient Instructions: Urinary Tract Infection, Urine Culture, DI for Urinary Tract Infection (UTI), Phenazopyridine Discharge ED Provider: Troy Rodriguez [facility] HPI General Stated complaint: possible UTI Time Seen by Provider: 12/28/22 11:09 History of Present Illness Provider Complaint: She states that for the past 1 day she has had low back pain, dysuria and urinary frequency. Related Data Home Medications Medication Instructions Recorded Confirmed aspirin 81 mg tablet,delayed 81 mg PO DAILY Blood thinner 08/20/21 12/28/22 release glipizide 10 mg tablet, extended 10 mg PO DAILY , 12/28/22 12/28/22 release 24 hr lisinopril 20 See Rx Instructions .Route 12/28/22 12/28/22 mg-hydrochlorothiazide 25 mg tablet .COMPLEX . meloxicam 15 mg tablet See Rx Instructions .Route 12/28/22 12/28/22 .COMPLEX . metformin 500 mg tablet,extended See Rx Instructions .Route 12/28/22 12/28/22 release 24 hr .COMPLEX Diabetes semaglutide 1 mg/dose (4 mg/3 mL) 1 mg SQ WEEKLY . 12/28/22 12/28/22 subcutaneous pen injector (Ozempic) Previous Rx's Medication Instructions Recorded albuterol sulfate 90 mcg/actuation 2 inh inhalation Q6HP PRN 09/10/21 aerosol inhaler Shortness Of Breath Or Wheezing #8.5 grams venlafaxine 75 mg capsule,extended 150 mg PO DAILY Depression #180 05/05/22 release 24 hr caps dextroamphetamine-amphetamine ER 25 mg PO BID adhd #60 caps 12/23/22 25 mg 24hr capsule,extend release nitrofurantoin
[2022-12-28 11:20] VITALS: BP 127/79; PULSE 88; RESP 20; TEMP 36.8; O2SAT 99; BMI 39.1
[2022-12-28 11:54] LABS: Apearance,Urine Turbid (Clear); Color,Urine Red (Yellow); PH,Urine 8.5 (5.0-8.5)
[2022-12-28 11:55] LABS: Bilirubin,Urine 2+ (Negative); Blood, Urine 3+ (Negative); Glucose,Urine (UA) 1+ (Negative); Ketones,Urine 1+ (Negative); Protein,Urine 2+ (Negative); Specific Gravity, Urine 1.015 (1.005-1.030); UTC Leukocyte Esterase,Urine 3+ (Negative); UTC Nitrate,Urine Positive (Negative); Urobilinogen,Urine 4 EU/dl (0.2)
[2022-12-28 12:24] VITALS: BP 127/79; PULSE 88; RESP 20; TEMP 36.8; O2SAT 99
== END 2022-12-28 12:24 | disposition home or self-care (01) ==
PROVIDERS: Emergency Provider Nurse Practitioner Family; PCP Physician Assistant
DX: N39.0 Urinary tract infection, site not specified (principal); B96.4 Proteus (mirabilis) (morganii) as the cause of diseases classified elsewhere; E11.9 Type 2 diabetes mellitus without complications; I10 Essential (primary) hypertension
CPT/HCPCS: 96372; 81003; 87086; 87088; 87186; 99212; 99214; G0463; J0696

== ENCOUNTER → 2023-02-09 15:30 | Outpatient (CLI) | payer OTHER, SELFPAY ==
[2023-02-09 19:43] LABS: Basophils % 0.2 % (0.1-2.0); Eosinophils # 0.2 K/mm3 (0.0-0.4); Eosinophils % 1.3 % (0.1-12.0); Hematocrit 38.7 % (37.0-47.0); Hemoglobin 12.3 g/dL (12.2-16.2); Lymphocytes # 1.5 K/mm3 (0.7-4.5); Lymphocytes % 12.9 % (10-50); Mean Corpuscular HGB Conc 31.7 g/dL (31.8-35.4); Mean Corpuscular Hemoglobin 26.9 pg (27.0-31.2); Mean Corpuscular Volume 84.8 fl (81-99); Mean Platelet Volume 9.6 fl (7.4-10.4); Monocytes # 0.5 K/mm3 (0.1-1.0); Neutrophils # 9.7 K/mm3 (1.8-7.8); Neutrophils % 81.6 % (37.0-80.0); Platelet Count 375 K/mm3 (142-424); Red Blood Count 4.57 M/mm3 (4.20-5.40); Red Cell Distribution Width 14.1 % (11.5-17.5); White Blood Count 11.9 K/mm3 (4.8-10.8)
[2023-02-09 19:45] LABS: Alanine Aminotransferase 18 U/L (12-78); Albumin Level 3.8 g/dl (3.5-5.0); Albumin/Globulin Ratio 1.2 (1.1-1.8); Alkaline Phosphatase 70 U/L (38-126); Anion Gap 17.5 mEq/L (5-15); Aspartate Amino Transferase 25 U/L (14-36); Bilirubin,Total 0.3 mg/dl (0.2-1.3); Blood Urea Nitrogen 18 mg/dl (7-17); Calcium 8.7 mg/dl (8.4-10.2); Carbon Dioxide 29 mmol/L (22.0-30.0); Chloride 95 mmol/L (98-107); Chol/HDL Ratio 4.1 (1-3.5); Cholesterol 147 mg/dl (140-200); Estimated Glomerular Filt Rate 75 ml/min (>60); GFR (African American) 91 ML/MIN (>60); Globulin 3.2 g/dL (1.3-3.2); Glucose 78 mg/dl (74-100); HDL Cholesterol 36 mg/dl (40-60); Potassium 3.5 mmoL/L (3.5-5.1); Sodium 138 mmol/L (136-145); Triglycerides 151 mg/dl (30-150); VLDL Cholesterol 30 mg/dL (0-40)
[2023-02-09 19:56] LABS: Direct LDL Cholesterol 91.48 mg/dL (100-129)
[2023-02-09 20:03] LABS: 25-OH Vitamin D, Total 44.2 ng/mL (30-100)
[2023-02-09 20:07] LABS: Iron 63 ug/dL (37-170)
[2023-02-09 20:16] LABS: Total Iron Binding Capacity 352 ug/dL (265-497)
[2023-02-09 20:19] LABS: Thyroid Stimulating Hormone 1.36 uIU/mL (0.465-4.68)
[2023-02-09 20:37] LABS: Vitamin B12 734 pg/mL (239-931)
[2023-02-09 20:43] LABS: Ferritin 24.4 ng/ml (11.1-264)
== END ==
PROVIDERS: PCP Physician Assistant; Visit Provider Physician Assistant
DX: R53.83 Other fatigue (principal); F90.2 Attention-deficit hyperactivity disorder, combined type; E11.9 Type 2 diabetes mellitus without complications; E66.9 Obesity, unspecified; Z68.38 Body mass index [BMI] 38.0-38.9, adult; Z79.84 Long term (current) use of oral hypoglycemic drugs
CPT/HCPCS: 80053; 80061; 82306; 82607; 82728; 83540; 83550; 84443; 85025

== ENCOUNTER → 2023-03-16 10:09 | Outpatient (CLI) | payer OTHER, SELFPAY ==
--- NOTE | 2023-03-16 10:14 | US_ITS ---
FINAL REPORT CLINICAL HISTORY: Decreased pulses FINDINGS: ANKLE/BRACHIAL INDICES FINDINGS: Pressure indices are as follows: RIGHT LOWER EXTREMITY: Ankle brachial pressure index: 1.3 Comments: Normal LEFT LOWER EXTREMITY: Ankle brachial pressure index: 1.2 Comments: Normal IMPRESSION: No evidence of significant obstructive peripheral vascular disease of the lower extremities. Reviewed, Interpreted and Dictated by Ag Pike MD Transcribed by Amilcar Vazquez Authenticated and . [facility]
== END ==
PROVIDERS: PCP Physician Assistant; Visit Provider Podiatrist
DX: R09.89 Other specified symptoms and signs involving the circulatory and respiratory systems (principal)
CPT/HCPCS: 93923

== ENCOUNTER → 2023-03-22 23:11 | Outpatient (CLI) | payer OTHER, SELFPAY | PROVIDERS: PCP Student in an Organized Health Care Education/Training Program; Visit Provider Student in an Organized Health Care Education/Training Program | DX: N39.0 Urinary tract infection, site not specified (principal) | CPT/HCPCS: 87086 ==

== ENCOUNTER → 2023-04-01 12:53 | Outpatient (CLI) | payer OTHER, SELFPAY ==
--- NOTE | 2023-04-01 12:53 | US_ITS ---
FINAL REPORT CLINICAL HISTORY: soft tissue mass near clavicle COMPARISON: None FINDINGS: Soft tissue ultrasound of the region overlying the right clavicle: Ultrasound examination of the soft tissues overlying the right clavicle was performed to evaluate for a mass. There is a hypoechoic region superficial to the clavicle of uncertain etiology, and a soft tissue mass can not be excluded based on this examination. Would consider MRI for further evaluation if clinically indicated. The portions of the submandibular glands and parotid glands visualized are unremarkable. IMPRESSION: Hypoechoic region superficial to the right clavicle, and soft tissue mass can not be excluded based on this examination. If clinically indicated would consider MRI for further evaluation. Reviewed, Interpreted and Dictated by Tony Ross III, MD Transcribed by Debbie Smith Authenticated and . [facility]
== END ==
PROVIDERS: PCP Student in an Organized Health Care Education/Training Program; Visit Provider Student in an Organized Health Care Education/Training Program
DX: R22.1 Localized swelling, mass and lump, neck (principal); M79.89 Other specified soft tissue disorders
CPT/HCPCS: 76536

== ENCOUNTER → 2023-04-07 12:45 | Outpatient (CLI) | payer OTHER, SELFPAY | PROVIDERS: PCP Physician Assistant; Visit Provider Physician Assistant | DX: N39.0 Urinary tract infection, site not specified (principal) | CPT/HCPCS: 87086 ==

== ENCOUNTER → 2023-04-21 15:58 | Outpatient (CLI) | payer OTHER, SELFPAY ==
--- NOTE | 2023-04-21 15:58 | MR_ITS ---
PROCEDURE INFORMATION: Exam: MR Chest Without Contrast; Clavicle Exam date and time: 04/21/2023 4:03 PM Age: 52 years old Clinical indication: Pain; Other: Palpable mass on right clavicle; Additional info: Palpable mass on right clavicle x 2 months. Per patient she feels that it has gotten bigger. Bb marker placed on mass TECHNIQUE: Imaging protocol: Magnetic resonance imaging of the chest without contrast. Exam focused on the clavicle. COMPARISON: CT LUNG SCREENING 05/07/2022 8:34 AM FINDINGS: Tubes, catheters and devices: There is a palpable marker present overlying the sternoclavicular joint. There is moderate sternoclavicular joint osteoarthritic changes present deep to the marker with associated large joint effusion. There is no suspicious mass visualized by MRI. Bones/joints: Partially imaged C5-C7 degenerative disc disease with apparent mild stenosis of the cervical spinal canal at these levels. The acromioclavicular joint and glenohumeral joint has mild osteoarthritic changes also present. Soft tissues: Unremarkable. Other findings: Study degraded by motion. IMPRESSION: Deep to the palpable marker there is sternoclavicular joint osteoarthritic changes with a large joint effusion. No suspicious mass is identified.
--- NOTE | 2023-04-21 16:48 | MM_ITS ---
PROCEDURE INFORMATION: Exam: MG Bilateral Screening 3D Mammography Exam date and time: 04/21/2023 5:15 PM Age: 52 years old Clinical indication: Screening. Her mother had breast cancer in her 40s. TECHNIQUE: Imaging protocol: Bilateral Screening tomosynthesis and 2D mammography including computer-aided detection (CAD) when performed. COMPARISON: 1. MG MM DIG SCREENING MAMM BI W/CAD 03/13/2022 9:53 AM 2. MG MM DIG SCREENING MAMM BI W/CAD 10/25/2020 9:33 AM 3. MG MM DIG SCREENING MAMM BI W/CAD 10/20/2019 8:01 AM 4. MG MM DIG MAMM DX UNILAT LT CAD 08/14/2019 2:00 PM FINDINGS: MAMMOGRAPHY: Breast composition: There are scattered areas of fibroglandular density. Mass: No suspicious mass. Architectural distortion: None. Calcifications: No suspicious calcifications. Asymmetric density: None. Skin thickening: None. Axillary adenopathy: None. Other: Right biopsy clip. IMPRESSION: No mammographic evidence of malignancy. Annual screening is recommended unless otherwise clinically indicated. ASSESSMENT: BI-RADS Category 2: Benign
== END ==
PROVIDERS: PCP Physician Assistant; Visit Provider Physician Assistant
DX: Z12.31 Encounter for screening mammogram for malignant neoplasm of breast (principal); R22.31 Localized swelling, mass and lump, right upper limb
CPT/HCPCS: 73218; 77063; 77067

== ENCOUNTER → 2023-06-16 11:00 | Outpatient (CLI) | payer OTHER, SELFPAY ==
[2023-06-16 20:03] LABS: Basophils % 0.2 % (0.1-2.0); Eosinophils # 0.1 K/mm3 (0.0-0.4); Eosinophils % 1.2 % (0.1-12.0); Hematocrit 42.3 % (37.0-47.0); Hemoglobin 13.2 g/dL (12.2-16.2); Lymphocytes # 1.9 K/mm3 (0.7-4.5); Lymphocytes % 19.2 % (10-50); Mean Corpuscular HGB Conc 31.1 g/dL (31.8-35.4); Mean Corpuscular Hemoglobin 26.4 pg (27.0-31.2); Mean Platelet Volume 9.9 fl (7.4-10.4); Monocytes # 0.5 K/mm3 (0.1-1.0); Monocytes % 5.2 % (1.7-9.3); Neutrophils # 7.4 K/mm3 (1.8-7.8); Neutrophils % 74.2 % (37.0-80.0); Platelet Count 333 K/mm3 (142-424); Red Blood Count 4.98 M/mm3 (4.20-5.40); Red Cell Distribution Width 14.9 % (11.5-17.5); White Blood Count 9.9 K/mm3 (4.8-10.8)
[2023-06-16 20:18] LABS: Alanine Aminotransferase 17 U/L (12-78); Albumin/Globulin Ratio 1.1 (1.1-1.8); Alkaline Phosphatase 56 U/L (38-126); Anion Gap 16.1 mEq/L (5-15); Aspartate Amino Transferase 23 U/L (14-36); Bilirubin,Total 0.4 mg/dl (0.2-1.3); Blood Urea Nitrogen 19 mg/dl (7-17); Calcium 9.3 mg/dl (8.4-10.2); Carbon Dioxide 28 mmol/L (22.0-30.0); Chloride 99 mmol/L (98-107); Chol/HDL Ratio 4.6 (1-3.5); Cholesterol 146 mg/dl (140-200); Estimated Glomerular Filt Rate 75 ml/min (>60); GFR (African American) 91 ML/MIN (>60); Globulin 3.5 g/dL (1.3-3.2); Glucose 90 mg/dl (74-100); HDL Cholesterol 32 mg/dl (40-60); Potassium 4.1 mmoL/L (3.5-5.1); Sodium 139 mmol/L (136-145); Total Protein,Serum 7.5 g/dl (6.3-8.2); Triglycerides 110 mg/dl (30-150); VLDL Cholesterol 22 mg/dL (0-40)
[2023-06-16 20:29] LABS: Direct LDL Cholesterol 79.66 mg/dL (100-129)
[2023-06-16 20:38] LABS: 25-OH Vitamin D, Total 48.8 ng/mL (30-100)
[2023-06-16 20:51] LABS: Thyroid Stimulating Hormone 0.87 uIU/mL (0.465-4.68)
[2023-06-16 21:19] LABS: Vitamin B12 > 1000 pg/mL (239-931)
[2023-06-16 23:04] LABS: Amphetamine/Metha Screen,Urine Positive ng/ml (<1000); Barbiturates Screen,Urine Negative ng/ml (<200)
[2023-06-16 23:05] LABS: Benzodiazepines Screen,Urine Negative ng/ml (<200)
[2023-06-16 23:06] LABS: Cannabinoid Screen,Urine Negative ng/ml (<50); Cocaine Screen,Urine Negative ng/ml (<300)
[2023-06-16 23:07] LABS: Methadone Screen,Urine Negative ng/ml (<300)
[2023-06-16 23:08] LABS: Opiate Screen,Urine Negative ng/ml (<300); Phencyclidine Screen,Urine Negative ng/ml (<25)
[2023-06-16 23:36] LABS: Microalbumin/Creatinine Ratio 14.4
[2023-06-16 23:37] LABS: Creatinine,Urine Random 285 mg/dL (Not Estab.)
[2023-06-17 00:49] LABS: Hemoglobin A1C 5.5 % (4.0-6.0)
== END ==
PROVIDERS: PCP Physician Assistant; Visit Provider Physician Assistant
DX: E11.40 Type 2 diabetes mellitus with diabetic neuropathy, unspecified (principal); F90.9 Attention-deficit hyperactivity disorder, unspecified type; E66.9 Obesity, unspecified; Z68.34 Body mass index [BMI] 34.0-34.9, adult; Z79.899 Other long term (current) drug therapy; Z79.84 Long term (current) use of oral hypoglycemic drugs
CPT/HCPCS: 80053; 80061; 80305; 82043; 82306; 82570; 82607; 83036; 84443; 85025

== ENCOUNTER → 2023-07-13 10:13 | Outpatient (CLI) | payer OTHER, SELFPAY ==
--- NOTE | 2023-07-13 10:14 | MR_ITS ---
FINAL REPORT CLINICAL HISTORY: F/U MRI. KNOT ON CLAVICLE HAS GOTTEN BIGGER COMPARISON: 04/21/2023 FINDINGS: Multiplanar MR imaging of the right clavicle was performed without and with contrast. There is motion on many sequences somewhat limiting overall image quality. There is moderate degenerative change of the right scleral clavicular joint, with a moderate size joint effusion in the joint space, slightly improved since the prior MRI of March. There is inflammatory change adjacent to the sternoclavicular joint. There is contrast enhancement surrounding the sternoclavicular joint, which was not given on the prior exam. There is a questionable 7 mm loose body within the right sternoclavicular joint. The musculature is intact. IMPRESSION: There is persistent signal in the sternoclavicular joint as described, degenerative and/or inflammatory change. Moderate degenerative change in the left sternoclavicular joint with a moderate amount of fluid in the joint space, slightly improved. There is inflammatory change adjacent to the sternoclavicular joint, with contrast-enhancement. Questionable 7 mm loose body within the right sternoclavicular joint. Reviewed, Interpreted and Dictated by Tony Ross III, MD Transcribed by Debbie Smith Authenticated and [facility]
== END ==
PROVIDERS: PCP Physician Assistant; Visit Provider Physician Assistant
DX: R22.2 Localized swelling, mass and lump, trunk (principal)
CPT/HCPCS: 73220; A9576

== ENCOUNTER 2023-10-06 18:42 | Outpatient (CLI) | payer OTHER, SELFPAY ==
[2023-10-06 20:59] LABS: Amphetamine/Metha Screen,Urine Positive ng/ml (<1000); Barbiturates Screen,Urine Negative ng/ml (<200); Benzodiazepines Screen,Urine Negative ng/ml (<200); Cannabinoid Screen,Urine Negative ng/ml (<50); Cocaine Screen,Urine Negative ng/ml (<300); Methadone Screen,Urine Negative ng/ml (<300); Opiate Screen,Urine Negative ng/ml (<300); Phencyclidine Screen,Urine Negative ng/ml (<25)
== END 2023-10-06 23:59 ==
LOC: LAB.DROPOF 18:43
PROVIDERS: PCP Physician Assistant; Visit Provider Physician Assistant
DX: Z79.899 Other long term (current) drug therapy (principal)
CPT/HCPCS: 80307

== ENCOUNTER 2023-10-24 12:25 | Emergency (ER) | payer OTHER, SELFPAY ==
[2023-10-24 13:05] VITALS: BP 124/67; PULSE 68; RESP 18; TEMP 36.8; O2SAT 99; BMI 32.8
--- NOTE | 2023-10-24 13:10 | EXP.UTC ---
Discharge Plan Disposition Patient Disposition: Home, Self-Care Condition: Good Prescriptions Prescriptions: New phenazopyridine [Pyridium] 200 mg tablet 200 mg PO Q8H 2 Days Qty: 6 0RF ciprofloxacin HCl 0.3 % drops See Rx Instructions .ROUTE .COMPLEX Qty: 5 0RF Rx Instructions: put 1 drp in both eyes every 2hr x2days; then 4 times/day x5days No Action clobetasol 0.05 % ointment 1 applic topical Patient Comments: APPLY TOPICALLY TO THE AFFECTED AREA TWICE DAILY albuterol sulfate 90 mcg/actuation HFA aerosol inhaler 2 inh IH Q6HP PRN (Reason: Shortness Of Breath Or Wheezing) Qty: 8.5 0RF cholecalciferol (vitamin D3) 125 mcg (5,000 unit) capsule 125 mcg PO DAILY Qty: 30 2RF cholecalciferol (vitamin D3) 250 mcg (10,000 unit) capsule 250 mcg PO WEEKLY Qty: 5 0RF dextroamphetamine-amphetamine 25 mg capsule,extended release 24hr 25 mg PO BID Qty: 60 0RF lisinopril-hydrochlorothiazide 20-25 mg tablet See Rx Instructions .ROUTE .COMPLEX Qty: 90 0RF Dose Instruction: TAKE 1 TABLET BY MOUTH DAILY FOR BLOOD PRESSURE Rx Instructions: TAKE 1 TABLET BY MOUTH DAILY FOR BLOOD PRESSURE Ozempic 2 mg/dose (8 mg/3 mL) pen injector See Rx Instructions .ROUTE .COMPLEX Qty: 3 2RF Dose Instruction: INJECT 2MG SUBCUTANEOUSLY ONCE A WEEK Rx Instructions: INJECT 2MG SUBCUTANEOUSLY ONCE A WEEK venlafaxine 75 mg tablet extended release 24hr See Rx Instructions .ROUTE .COMPLEX Qty: 30 2RF Dose Instruction: TAKE 1 CAPSULE BY MOUTH ONCE DAILY. Rx Instructions: TAKE 1 CAPSULE BY MOUTH ONCE DAILY. glipizide 10 mg tablet extended release 24hr See Rx Instructions .ROUTE .COMPLEX Qty: 90 3RF Dose Instruction: TAKE 1 TABLET BY MOUTH DAILY Rx Instructions: TAKE 1 TABLET BY MOUTH DAILY meloxicam 15 mg tablet See Rx Instructions .ROUTE .COMPLEX Qty: 90 0RF Dose Instruction: TAKE 1 TABLET(15 MG) BY MOUTH EVERY DAY FOR ARTHRITIS Rx Instructions: TAKE 1 TABLET(15 MG) BY MOUTH EVERY DAY FOR ARTHRITIS metformin 500 mg tablet extended release 24 hr See Rx Instructions .ROUTE .COMPLEX Qty: 180 0RF Dose Instruction: TAKE 2 TABLETS BY MOUTH ONCE DAILY FOR DIABETES Rx Instructions: TAKE 2 TABLETS BY MOUTH ONCE DAILY FOR DIABETES aspirin 81 MG tablet,delayed release (DR/EC) 81 mg PO DAILY Referrals Follow up/Referrals: Jenae Ellis PA [Primary Care Provider] - See instructions Activity Restrictions/Add. Instructions Additional Instructions/Restrictions: Drink plenty of fluids. Take tylenol or ibuprofen for pain or fever. Take the medications as directed. Follow up with your regular doctor. GO TO THE ER FOR ANY WORSENING SYMPTOMS The pyridium will make your urine turn orange, this is an expected side effect. It will stain your clothes if it comes into contact with them. We will culture the urine. That will tell what bacteria is causing your infection and which antibiotics will treat it best. Sometimes the first antibiotic we prescribe turns out to not work against different bacteria. So, make sure you follow up within 3 days if you are not getting better. Clinical Impressions Clinical Impression: UTI (urinary tract infection) Instructions Patient Instructions: DI for Urinary Tract Infection (UTI), Phenazopyridine Discharge ED Provider: Troy Rodriguez [facility] General Stated complaint: ? UTI Time Seen by Provider: 10/24/23 13:10 History of Present Illness Provider Complaint: She states that for the past 3 days she has had low back pain, dysuria, and urinary frequency. Related Data Home Medications Medication Instructions Recorded Confirmed aspirin 81 mg tablet,delayed 81 mg PO DAILY Blood thinner 08/20/21 10/06/23 release clobetasol 0.05 % topical ointment 1 applic topical 08/11/23 10/06/23 Previous Rx's Medication Instructions Recorded albuterol sulfate 90 mcg/actuation 2 inh inhalation Q6HP PRN 09/10/21 aerosol inhaler Shortness Of Breath Or Wheezing #8.5 grams cholecalciferol (vitamin D3) 125 125 mcg PO DAILY #30 caps 02/09/23 mcg (5,000 unit) capsule cholecalciferol (vitamin D3) 250 250 mcg PO WEEKLY #5 caps 02/09/23 mcg (10,000 unit) capsule lisinopril 20 See Rx Instructions .Route 08/17/23 mg-hydrochlorothiazide 25 mg tablet .COMPLEX #90 tabs semaglutide 2 mg/dose (8 mg/3 mL) See Rx Instructions .Route 08/26/23 subcutaneous pen injector (Ozempic) .COMPLEX #3 mL venlafaxine 75 mg tablet,extended See Rx Instructions .Route 08/27/23 release 24 hr .COMPLEX #30 tabs glipizide 10 mg tablet, extended See Rx Instructions .Route 09/23/23 release 24 hr .COMPLEX #90 tabs dextroamphetamine-amphetamine ER 25 mg PO BID adhd #60 caps 10/06/23 25 mg 24hr capsule,extend release meloxicam 15 mg tablet See Rx Instructions .Route 10/11/23 .COMPLEX #90 tabs metformin 500 mg tablet,extended See Rx Instructions .Route 10/21/23 release 24 hr .COMPLEX #180 tabs ciprofloxacin HCl 0.3 % eye drops See Rx Instructions ophthalmic 10/24/23 (eye) .COMPLEX #5 mL phenazopyridine 200 mg tablet 200 mg PO Q8H 2 days #6 tabs 10/24/23 (Pyridium) Allergies Allergy/AdvReac Type Severity Reaction Status Date / Time No Known Allergies Allergy Verified 10/24/23 13:23 [facility] Disclaimer: The information contained in this section may have been updated after the patient was seen, as this information can be updated by other users. Medical History Attention Deficit Hyperactivity Disorder (ADHD) Binge eating disorder Boil of lower extremity Area outlined. Depression with anxiety Diabetes mellitus H/O iron deficiency High blood pressure Iron deficiency anemia (~01/29/18) PMDD (premenstrual dysphoric disorder) Pulmonary mass 3.7 x 3.7 cm left lower lobe mass well-circumscribed iso to hypodense.. This may represent a pulmonary hamartoma however, definite fat or calcification is not identified within the lesion. Therefore, neoplasm cannot be excluded. Hamartomas may show increase FDG PET activity therefore PET scan not recommended. Would initially recommend a 3 month follow-up and pulmonology consult Urinary leakage Vitamin D deficiency (~01/29/18) Social History Smoking Status: Former smoker alcohol intake: never substance use type: denies use current occupational status: employed Travel in the last 8 weeks: None household members: spouse housing: house current occupational exposures/hazards: No caffeine: Yes ROS Obtained: Yes All systems reviewed & no additional complaints except as documented Constitutional Constitutional: Reports system reviewed and no additional complaints, except as documented, Denies chills and Denies fever(s) Eyes Eyes: Denies eye discharge ENT Ears, Nose, Mouth, and Throat: Denies dysphagia, Denies sore throat and Denies throat swelling Cardiovascular Cardiovascular: Denies chest pain and Denies dyspnea Respiratory Respiratory: Denies chest congestion, Denies cough and Denies dyspnea Gastrointestinal Gastrointestingal: Denies abdominal pain, constipation, diarrhea, dysphagia, nausea or vomiting Genitourinary Female Genitourinary: Reports as per HPI, Reports dysuria, Reports urinary frequency, Denies urinary incontinence, Reports urinary hesitancy and Reports urinary urgency Musculoskeletal Musculoskeletal: Denies arthralgias and Reports back pain Integumentary/Breasts Skin/Breast: Denies rash Neurologic Neurologic: Denies paresthesias Allergic/Immunologic Allergic/Immunologic: Denies throat swelling Physical Exam General General appearance: alert and in no apparent distress Head Head exam: atraumatic, normocephalic and normal inspection Eye Eye exam: Present normal appearance, PERRL and EOMI ENT ENT exam: Present normal exam, normal oropharynx, mucous membranes moist, TM's normal bilaterally and normal external ear exam Neck Neck exam: Present normal inspection, full ROM and trachea midline; Absent meningismus or lymphadenopathy Chest Chest inspection: Present normal inspection and symmetric chest wall rise; Absent tenderness Respiratory Respiratory exam: Present normal lung sounds bilaterally; Absent respiratory distress Cardiovascular Cardiovascular exam: Present regular rate and normal rhythm; Absent JVD Abdominal Exam Abdominal exam: Present soft and normal bowel sounds; Absent distention, tenderness or guarding Extremities Exam Extremities exam: Present normal inspection, full ROM and normal capillary refill; Absent calf tenderness Back Exam Back exam: Present normal inspection; Absent tenderness Neurological Exam Neurological exam: Present alert and oriented X3 Psychiatric Psychiatric exam: Present normal affect and normal mood Skin Skin exam: Present warm, dry, intact and normal color Lymphatic Lymphatic Findings: no adenopathy Medical Decision Making Medical Records Medical records reviewed: No I reviewed the patient's medical records. Deyvi Inquiry Pt receiving controlled substance: No Lab Data Lab results reviewed: Yes I reviewed the patient's lab results.
[2023-10-24 13:24] LABS: Apearance,Urine Cloudy (Clear); Blood, Urine 2+ (Negative); Color,Urine Red (Yellow); Glucose,Urine (UA) Negative (Negative); Ketones,Urine TRACE (Negative); Protein,Urine 1+ (Negative); Specific Gravity, Urine 1.025 (1.005-1.030)
[2023-10-24 13:25] LABS: Bilirubin,Urine 1+ (Negative); UTC Leukocyte Esterase,Urine 2+ (Negative); UTC Nitrate,Urine Negative (Negative); Urobilinogen,Urine 1 EU/dl (0.2)
[2023-10-24 14:04] VITALS: BP 124/67; PULSE 68; RESP 18; TEMP 36.8; O2SAT 99
== END 2023-10-24 14:04 | disposition home or self-care (01) ==
PROVIDERS: Emergency Provider Nurse Practitioner Family; PCP Physician Assistant
DX: N39.0 Urinary tract infection, site not specified (principal); B96.89 Other specified bacterial agents as the cause of diseases classified elsewhere; M54.59 Other low back pain; I10 Essential (primary) hypertension; E11.9 Type 2 diabetes mellitus without complications; Z79.84 Long term (current) use of oral hypoglycemic drugs; Z79.85 Long-term (current) use of injectable non-insulin antidiabetic drugs
CPT/HCPCS: 81003; 87086; 99212; 99214; G0463

== ENCOUNTER 2023-11-09 15:50 | Outpatient (CLI) | payer OTHER, SELFPAY ==
[2023-11-09 16:14] LABS: Basophils % 0.2 % (0.1-2.0); Eosinophils # 0.1 K/mm3 (0.0-0.4); Eosinophils % 0.8 % (0.1-12.0); Hematocrit 39.7 % (37.0-47.0); Hemoglobin 13.4 g/dL (12.2-16.2); Lymphocytes # 1.9 K/mm3 (0.7-4.5); Lymphocytes % 19.7 % (10-50); Mean Corpuscular HGB Conc 33.6 g/dL (31.8-35.4); Mean Corpuscular Volume 83.2 fl (81-99); Mean Platelet Volume 9.2 fl (7.4-10.4); Monocytes # 0.4 K/mm3 (0.1-1.0); Monocytes % 4.3 % (1.7-9.3); Neutrophils # 7.4 K/mm3 (1.8-7.8); Neutrophils % 75.1 % (37.0-80.0); Platelet Count 314 K/mm3 (142-424); Red Blood Count 4.78 M/mm3 (4.20-5.40); Red Cell Distribution Width 13.9 % (11.5-17.5); White Blood Count 9.8 K/mm3 (4.8-10.8)
[2023-11-09 16:25] LABS: Hemoglobin A1C 5.1 % (4.0-6.0)
[2023-11-09 16:38] LABS: Alanine Aminotransferase 13 U/L (12-78); Albumin Level 4.2 g/dl (3.5-5.0); Albumin/Globulin Ratio 1.3 (1.1-1.8); Alkaline Phosphatase 61 U/L (38-126); Anion Gap 11.8 mEq/L (5-15); Aspartate Amino Transferase 22 U/L (14-36); Bilirubin,Total 0.4 mg/dl (0.2-1.3); Blood Urea Nitrogen 21 mg/dl (7-17); Calcium 9.4 mg/dl (8.4-10.2); Carbon Dioxide 31 mmol/L (22.0-30.0); Chloride 98 mmol/L (98-107); Estimated Glomerular Filt Rate 66 ml/min (>60); GFR (African American) 80 ML/MIN (>60); Globulin 3.2 g/dL (1.3-3.2); Glucose 85 mg/dl (74-100); Potassium 3.8 mmoL/L (3.5-5.1); Sodium 137 mmol/L (136-145); Total Protein,Serum 7.4 g/dl (6.3-8.2); Uric Acid 4.2 mg/dl (2.5-6.2)
== END 2023-11-09 23:59 ==
LOC: LAB 15:50
PROVIDERS: PCP Physician Assistant; Visit Provider Podiatrist
DX: M77.41 Metatarsalgia, right foot (principal)
CPT/HCPCS: 36415; 80053; 83036; 84550; 85025

== ENCOUNTER 2023-12-27 12:30 | Outpatient (CLI) | payer OTHER, SELFPAY ==
[2023-12-27 12:38] LABS: Chloride 103 mmol/L (98-107); Potassium 4.1 mmoL/L (3.5-5.1); Sodium 137 mmol/L (136-145)
[2023-12-27 12:40] LABS: Blood Urea Nitrogen 20 mg/dl (7-17); Estimated Glomerular Filt Rate 88 ml/min (>60); GFR (African American) 106 ML/MIN (>60)
[2023-12-27 12:41] LABS: Alanine Aminotransferase 15 U/L (12-78); Albumin Level 3.7 g/dl (3.5-5.0); Albumin/Globulin Ratio 1.2 (1.1-1.8); Alkaline Phosphatase 62 U/L (38-126); Anion Gap 8.1 mEq/L (5-15); Aspartate Amino Transferase 22 U/L (14-36); Bilirubin,Total 0.3 mg/dl (0.2-1.3); Calcium 9.3 mg/dl (8.4-10.2); Carbon Dioxide 30 mmol/L (22.0-30.0); Chol/HDL Ratio 3.7 (1-3.5); Cholesterol 163 mg/dl (140-200); Glucose 113 mg/dl (74-100); HDL Cholesterol 44 mg/dl (40-60); Iron 81 ug/dL (37-170); Total Protein,Serum 6.7 g/dl (6.3-8.2); Triglycerides 106 mg/dl (30-150); VLDL Cholesterol 21 mg/dL (0-40)
[2023-12-27 12:45] LABS: Basophils % 0.5 % (0.1-2.0); Eosinophils # 0.1 K/mm3 (0.0-0.4); Eosinophils % 1.1 % (0.1-12.0); Hematocrit 40.1 % (37.0-47.0); Hemoglobin 12.6 g/dL (12.2-16.2); Lymphocytes # 1.5 K/mm3 (0.7-4.5); Lymphocytes % 15.7 % (10-50); Mean Corpuscular HGB Conc 31.5 g/dL (31.8-35.4); Mean Corpuscular Hemoglobin 27.3 pg (27.0-31.2); Mean Corpuscular Volume 86.7 fl (81-99); Mean Platelet Volume 9.4 fl (7.4-10.4); Monocytes # 0.4 K/mm3 (0.1-1.0); Monocytes % 4.5 % (1.7-9.3); Neutrophils # 7.2 K/mm3 (1.8-7.8); Neutrophils % 78.3 % (37.0-80.0); Platelet Count 293 K/mm3 (142-424); Red Blood Count 4.62 M/mm3 (4.20-5.40); Red Cell Distribution Width 14.2 % (11.5-17.5); White Blood Count 9.3 K/mm3 (4.8-10.8)
[2023-12-27 12:51] LABS: Total Iron Binding Capacity 332 ug/dL (265-497)
[2023-12-27 12:53] LABS: Direct LDL Cholesterol 98.23 mg/dL (100-129)
[2023-12-27 12:57] LABS: Free T4 (Free Thyroxine) 1.05 ng/dl (0.78-2.19); Hemoglobin A1C 5.3 % (4.0-6.0)
[2023-12-27 12:58] LABS: 25-OH Vitamin D, Total 33.1 ng/mL (30-100)
== END 2023-12-27 23:59 ==
LOC: LAB.DROPOF 12:30
PROVIDERS: PCP Physician Assistant; Visit Provider Physician Assistant
DX: E11.42 Type 2 diabetes mellitus with diabetic polyneuropathy (principal); I10 Essential (primary) hypertension; E55.9 Vitamin D deficiency, unspecified; R53.83 Other fatigue; K59.00 Constipation, unspecified; E03.9 Hypothyroidism, unspecified; Z68.32 Body mass index [BMI] 32.0-32.9, adult; Z79.84 Long term (current) use of oral hypoglycemic drugs; Z79.85 Long-term (current) use of injectable non-insulin antidiabetic drugs; Z87.891 Personal history of nicotine dependence
CPT/HCPCS: 80053; 80061; 82306; 82728; 83036; 83540; 83550; 84439; 84443; 85025

== ENCOUNTER 2024-04-13 11:32 | Outpatient (CLI) | payer OTHER, SELFPAY ==
--- NOTE | 2024-04-13 11:36 | XR_ITS ---
FINAL REPORT CLINICAL HISTORY: low back pain COMPARISON: None FINDINGS: AP, lateral, and oblique views of the lumbar spine were obtained. There is no acute fracture. There is grade 1 anterolisthesis of L4 on L5. Vertebral body height is preserved. There is multilevel degenerative disc disease present, most severe at the L5-S1 level. No acute paraspinal abnormality is identified. A large amount of stool is present in the colon. IMPRESSION: No acute osseous abnormalities lumbar spine. Degenerative change as described, most severe at the L5-S1 level. Reviewed, Interpreted and Dictated by Ora Chan MD Transcribed by Debbie Smith Authenticated and [facility]
== END 2024-04-13 23:59 | disposition home or self-care (01) ==
LOC: RAD 11:33
PROVIDERS: PCP Physician Assistant; Visit Provider Physician Assistant
DX: M54.50 Low back pain, unspecified (principal)
CPT/HCPCS: 72110

== ENCOUNTER 2024-05-16 14:38 | Outpatient (CLI) | payer OTHER, SELFPAY ==
[2024-05-16 14:45] LABS: Basophils % 0.3 % (0.1-2.0); Eosinophils # 0.1 K/mm3 (0.0-0.4); Eosinophils % 1.4 % (0.1-12.0); Hematocrit 41.2 % (37.0-47.0); Lymphocytes # 1.5 K/mm3 (0.7-4.5); Lymphocytes % 15.2 % (10-50); Mean Corpuscular HGB Conc 31.4 g/dL (31.8-35.4); Mean Corpuscular Hemoglobin 28.3 pg (27.0-31.2); Mean Platelet Volume 9.1 fl (7.4-10.4); Monocytes # 0.4 K/mm3 (0.1-1.0); Monocytes % 4.5 % (1.7-9.3); Neutrophils # 7.6 K/mm3 (1.8-7.8); Neutrophils % 78.5 % (37.0-80.0); Platelet Count 375 K/mm3 (142-424); Red Blood Count 4.58 M/mm3 (4.20-5.40); Red Cell Distribution Width 14.2 % (11.5-17.5); White Blood Count 9.7 K/mm3 (4.8-10.8)
[2024-05-16 15:03] LABS: Hemoglobin A1C 5.5 % (4.0-6.0)
[2024-05-16 15:22] LABS: Alanine Aminotransferase 15 U/L (12-78); Albumin Level 3.7 g/dl (3.5-5.0); Albumin/Globulin Ratio 1.1 (1.1-1.8); Alkaline Phosphatase 62 U/L (38-126); Anion Gap 12.4 mEq/L (5-15); Aspartate Amino Transferase 24 U/L (14-36); Bilirubin,Total 0.4 mg/dl (0.2-1.3); Blood Urea Nitrogen 24 mg/dl (7-17); Calcium 8.9 mg/dl (8.4-10.2); Carbon Dioxide 29 mmol/L (22.0-30.0); Chloride 102 mmol/L (98-107); Chol/HDL Ratio 4.3 (1-3.5); Cholesterol 158 mg/dl (140-200); Estimated Glomerular Filt Rate 75 ml/min (>60); GFR (African American) 91 ML/MIN (>60); Globulin 3.5 g/dL (1.3-3.2); Glucose 77 mg/dl (74-100); HDL Cholesterol 37 mg/dl (40-60); Potassium 4.4 mmoL/L (3.5-5.1); Sodium 139 mmol/L (136-145); Total Protein,Serum 7.2 g/dl (6.3-8.2); Triglycerides 90 mg/dl (30-150); VLDL Cholesterol 18 mg/dL (0-40)
[2024-05-16 15:32] LABS: Direct LDL Cholesterol 91.54 mg/dL (100-129)
[2024-05-16 15:52] LABS: Thyroid Stimulating Hormone 0.98 uIU/mL (0.465-4.68)
[2024-05-16 16:41] LABS: Microalbumin/Creatinine Ratio 7.9
[2024-05-16 16:44] LABS: Creatinine,Urine Random 123 mg/dL (Not Estab.)
== END 2024-05-16 23:59 | disposition home or self-care (01) ==
LOC: LAB.DROPOF 14:38
PROVIDERS: PCP Physician Assistant; Visit Provider Physician Assistant
DX: E78.5 Hyperlipidemia, unspecified (principal); E55.9 Vitamin D deficiency, unspecified; E11.42 Type 2 diabetes mellitus with diabetic polyneuropathy; Z79.84 Long term (current) use of oral hypoglycemic drugs; Z79.85 Long-term (current) use of injectable non-insulin antidiabetic drugs
CPT/HCPCS: 80050; 80053; 80061; 82043; 82306; 82570; 83036; 84443; 85025

== ENCOUNTER 2024-12-03 14:07 | Emergency (ER) | payer OTHER, SELFPAY ==
[2024-12-03 14:12] VITALS: BP 195/86; PULSE 71; RESP 20; TEMP 37.1; O2SAT 99; BMI 34.0
[2024-12-03 15:01] VITALS: BP 150/77; PULSE 72; O2SAT 100
--- NOTE | 2024-12-03 15:29 | XR_ITS ---
PROCEDURE INFORMATION: Exam: XR Left Hand Exam date and time: 12/03/2024 3:24 PM Age: 54 years old Clinical indication: Other: Abscess; Additional info: Abscess, index finger TECHNIQUE: Imaging protocol: Radiologic exam of the left hand. Views: 3 or more views. COMPARISON: CR XR HAND LT MIN 3V 12/03/2024 3:24 PM FINDINGS: Bones/joints: There is no evidence of acute fracture.There is no evidence of malalignment or dislocation. No definite lytic process Soft tissues: Soft tissue swelling of the index finger especially distally. IMPRESSION: There is no evidence of acute fracture.There is no evidence of malalignment or dislocation.
[2024-12-03 15:30] VITALS: BP 158/83; PULSE 65; O2SAT 97
--- NOTE | 2024-12-03 15:31 | HMH.EDGENADL ---
Discharge Plan Disposition Patient Disposition: Home, Self-Care Condition: Good Prescriptions Prescriptions: No Action amoxicillin-pot clavulanate 875-125 mg tablet 1 tab PO Q12H 10 Days Qty: 20 0RF lisinopril-hydrochlorothiazide 20-25 mg tablet See Rx Instructions .ROUTE .COMPLEX Qty: 90 3RF Dose Instruction: TAKE 1 TABLET BY MOUTH DAILY FOR BLOOD PRESSURE Rx Instructions: TAKE 1 TABLET BY MOUTH DAILY FOR BLOOD PRESSURE dextroamphetamine-amphetamine [Adderall XR] 25 mg capsule,extended release 24hr 25 mg PO BID 30 Days Qty: 60 0RF glipizide 10 mg tablet extended release 24hr See Rx Instructions .ROUTE .COMPLEX Qty: 90 3RF Dose Instruction: TAKE 1 TABLET BY MOUTH DAILY Rx Instructions: TAKE 1 TABLET BY MOUTH DAILY venlafaxine 75 mg capsule,extended release 24hr See Rx Instructions .ROUTE .COMPLEX Qty: 30 0RF Dose Instruction: TAKE 1 CAPSULE BY MOUTH 1 TIME DAILY Rx Instructions: TAKE 1 CAPSULE BY MOUTH 1 TIME DAILY Ozempic 2 mg/dose (8 mg/3 mL) pen injector See Rx Instructions .ROUTE .COMPLEX Qty: 3 0RF Dose Instruction: INJECT 2MG SUBCUTANEOUSLY ONCE A WEEK Rx Instructions: INJECT 2MG SUBCUTANEOUSLY ONCE A WEEK meloxicam 15 mg tablet See Rx Instructions .ROUTE .COMPLEX Qty: 90 0RF Dose Instruction: TAKE 1 TABLET(15 MG) BY MOUTH EVERY DAY FOR ARTHRITIS Rx Instructions: TAKE 1 TABLET(15 MG) BY MOUTH EVERY DAY FOR ARTHRITIS dextroamphetamine-amphetamine 25 mg capsule,extended release 24hr 25 mg PO BID 30 Days Qty: 60 0RF aspirin 81 MG tablet,delayed release (DR/EC) 81 mg PO DAILY Referrals Follow up/Referrals: Jenae Ellis PA [Primary Care Provider] - See instructions Activity Restrictions/Add. Instructions Additional Instructions/Restrictions: You were seen for a paronychia or finger infection. Please see your PCP tomorrow and continue your antibiotics. Return to the ER if you have any worsening symptoms. Clinical Impressions Clinical Impression: Paronychia Instructions Patient Instructions: DI for Skin Abscess Print Language Print Language: Filipino Discharge ED Provider: Tyler Manzano Adult HPI <PELON Poole - Last Filed: 12/03/24 22:16> General Chief complaint: Skin/Abscess/Foreign Body Stated complaint: L. index finger blister filled with blood Time Seen by Provider: 12/03/24 14:56 Mode of Arrival: Ambulatory Source of Information: Patient Description of Symptoms (Recalled from ER Triage Doc. by RN): Patient presents ambulatory to triage with smooth steady gait. States she went to Urgent Care yesterday. States the provider lanced it and drained purulent drainage. States the blister then filled with blood, so the provider poked it again. States it has returned, is larger in size, and now reports a fever at home. Large raised purple/red blister noted just proximal to the nailbed on the L index finger. History of Present Illness HPI narrative: Patient presents with pain and swelling of her left index finger. She reports on Wednesday she was unloading some hay without gloves. she noted some slight tenderness at the nail edge. She reports that she soaked the area and covered it. She reports that she has had increasing swelling and redness as well as development of a small amount of pus. She went to urgent care and they drained the paronychia and started her on Augmentin. She has had 3 doses of antibiotics. Yesterday she developed a fever of 101-102. Upon arrival she notes some red streaking up her arm. complaint: left index finger Onset (ago): day(s) Location: left and upper extremity Radiation: extremity Severity: severe Consistency: constant Relieving factors: none Exacerbating factors: other (I&D, salve) Associated symptoms: fever/chills Related Data Home Medications ?Medication ?Instructions ?Recorded ?Confirmed aspirin 81 mg tablet,delayed 81 mg PO DAILY Blood thinner 08/20/21 12/02/24 release Previous Rx's ?Medication ?Instructions ?Recorded glipizide 10 mg tablet, extended See Rx Instructions .Route 09/23/23 release 24 hr .COMPLEX #90 tabs lisinopril 20 See Rx Instructions .Route 12/27/23 mg-hydrochlorothiazide 25 mg tablet .COMPLEX #90 tabs venlafaxine 75 mg capsule,extended See Rx Instructions .Route 01/13/24 release 24 hr .COMPLEX #30 caps dextroamphetamine-amphetamine ER 25 mg PO BID 30 days #60 caps 03/22/24 25 mg 24hr capsule,extend release (Adderall XR) semaglutide 2 mg/dose (8 mg/3 mL) See Rx Instructions .Route 06/29/24 subcutaneous pen injector (Ozempic) .COMPLEX #3 mL meloxicam 15 mg tablet See Rx Instructions .Route 07/14/24 .COMPLEX #90 tabs dextroamphetamine-amphetamine ER 25 mg PO BID 30 days #60 caps 08/15/24 25 mg 24hr capsule,extend release amoxicillin 875 mg-potassium 1 tab PO Q12H 10 days #20 tabs 12/02/24 clavulanate 125 mg tablet Allergies Allergy/AdvReac Type Severity Reaction Status Date / Time No Known Allergies Allergy Verified 12/02/24 11:09 [facility] <PELON Poole - Last Filed: 12/03/24 22:16> [facility] Disclaimer: The information contained in this section may have been updated after the patient was seen, as this information can be updated by other users. Medical History Urinary leakage H/O iron deficiency Diabetes mellitus PMDD (premenstrual dysphoric disorder) Depression with anxiety Pulmonary mass 3.7 x 3.7 cm left lower lobe mass well-circumscribed iso to hypodense.. This may represent a pulmonary hamartoma however, definite fat or calcification is not identified within the lesion. Therefore, neoplasm cannot be excluded. Hamartomas may show increase FDG PET activity therefore PET scan not recommended. Would initially recommend a 3 month follow-up and pulmonology consult Boil of lower extremity Area outlined. High blood pressure Vitamin D deficiency (~01/29/18) Iron deficiency anemia (~01/29/18) Binge eating disorder Attention Deficit Hyperactivity Disorder (ADHD) Social History Smoking Status: Never smoker alcohol intake: never substance use type: denies use current occupational status: employed Travel in the last 8 weeks: None household members: spouse housing: house current occupational exposures/hazards: No caffeine: Yes Have you lived/traveled outside [place] in past 30 days?: No Contact w/someone who lives/traveled outside [place] past 30 days?: No Exposure to someone with infectious disease in past 14 days?: No Do you have a fever (greater than 100.4 F or 38 C)?: No Have you tested positive for COVID-19: No Exposed to someone with COVID-19 in past 14 days?: No Do you have a sore throat?: No Do you have a cough?: No Do you have any weakness?: No Do you have any diarrhea?: No Are you experiencing any unusual bleeding?: No Do you have any muscle aches/pain?: No Do you have any abdominal pain?: No Are you experiencing loss of taste or smell?: No Other Medical History Have you received the Flu Vaccine for this season: No Have you received the Pneumonia Vaccine: No <PELON Poole - Last Filed: 12/03/24 22:16> ROS Obtained: Yes Systems reviewed as appropriate & no additional complaints except as documented Physical Exam <PELON Poole - Last Filed: 12/03/24 22:16> General General appearance: alert and in no apparent distress Head Head exam: atraumatic and normocephalic Eye Eye exam: Present normal appearance and EOMI Chest Chest inspection: Present symmetric chest wall rise Respiratory Respiratory exam: Present normal lung sounds bilaterally; Absent wheezes or stridor Cardiovascular Cardiovascular exam: Present regular rate and normal rhythm; Absent systolic murmur Extremities Exam Extremities exam: Present full ROM Expanded Upper Extremity Exam Left: Hand exam: Present tenderness, swelling, erythema and other (1 x 2 cm area of edema, purple discoloration, fluctuance of the left index finger proximal to nail with erythema extending up to the AC. N/V intact. Limited flexion ); Absent normal inspection or full ROM Neurological Exam Neurological exam: Present alert and oriented X3 Psychiatric Psychiatric exam: Present normal affect and normal mood Skin Skin exam: Present warm, dry and intact Medical Decision Making <PELON Poole Last Filed: 12/03/24 22:16> Medical Records Screening: Per USPSTF and CDC recommendations, given the prevalence of disease in our region, it is our hospital?s policy to screen for HIV and viral Hepatitis for all patients aged 18 and over and those with ongoing risk factors. Deyvi Inquiry Pt receiving controlled substance: No Vital Signs: 12/03/24 14:12 12/03/24 15:01 12/03/24 15:30 Temperature 98.8 F Temperature Source Temporal Artery Scan Pulse Rate 72 65 Pulse Rate [Radial] 71 Respiratory Rate 20 Blood Pressure 150/77 H 158/83 H Blood Pressure [R Arm] 195/86 H Blood Pressure Mean [R Arm] 122 Blood Pressure Source 02 Sat by Pulse Oximetry 99 100 97 Oxygen Delivery Method Room Air Room Air Room Air 12/03/24 16:00 12/03/24 17:28 Temperature 98.8 F Temperature Source Temporal Artery Scan Pulse Rate 70 68 Pulse Rate [Radial] Respiratory Rate 18 Blood Pressure 155/95 H 140/70 Blood Pressure [R Arm] Blood Pressure Mean [R Arm] Blood Pressure Source Automatic Cuff 02 Sat by Pulse Oximetry 97 Oxygen Delivery Method Room Air Room Air Lab Data Lab Results 12/03/24 16:37: WBC 9.8, RBC 4.47, Hgb 12.2, Hct 37.9, MCV 84.8, MCH 27.3, MCHC 32.2, RDW 13.3, Plt Count 221, MPV 11.0 H, Neut % (Auto) 77.4, Lymph % (Auto) 11.9, [place] % (Auto) 9.6 H, Eos % (Auto) 0.6, Baso % (Auto) 0.2, Neut # (Auto) 7.6, Lymph # (Auto) 1.2, [place] # (Auto) 0.9, Eos # (Auto) 0.1, Baso # (Auto) 0.0, ESR 17, Sodium 137, Potassium 3.7, Chloride 102, Carbon Dioxide 27, Anion Gap 11.7, BUN 20 H, Creatinine 0.90, Estimated Creat Clear 118, Estimated GFR 65, Est GFR ( Amer) 79, Glucose 108 H, Lactate 0.9, Calcium 8.9, Total Bilirubin 0.5, AST 29, ALT 22, Alkaline Phosphatase 58, C-Reactive Protein 78.9 H, Total Protein 7.3, Albumin 4.4, Globulin 2.9, Albumin/Globulin Ratio 1.5 12/03/24 16:37 12/03/24 16:37 Orders (Tests/Meds): ED MEDICATIONS Discontinued Medications Generic Name Dose Route Start Last Admin Trade Name Freq PRN Reason Stop Dose Admin Lidocaine HCl 10 ml 12/03/24 16:28 12/03/24 16:29 Lidocaine 1% 10ml Mdv IJ 12/03/24 16:29 10 ml ONCE ONE Administration Tetanus/Reduced Diphtheria/Acell Pertussis 0.5 ml 12/03/24 15:28 12/03/24 16:12 Tet/Diphth/Pert-Adult 0.5ml Syringe IM 12/03/24 15:29 0.5 ml .ONCE ONE Administration ORDERS Category Date Time Status Hand XR left minimum 3 views [XR hand LT min 3V] Stat Exams 12/03/24 15:29 Completed CBC w/Auto Diff [Complete Blood Count Auto Diff] Stat Lab 12/03/24 16:37 Completed CMP [Comprehensive Metabolic Panel] Stat Lab 12/03/24 16:37 Completed CRP [C-Reactive Protein] Stat Lab 12/03/24 16:37 Completed Erythrocyte Sedimentation Rate Stat Lab 12/03/24 16:37 Completed Lactic Acid Stat Lab 12/03/24 16:37 Completed Wound Culture and Gram Stain Stat Micro 12/03/24 22:14 Ordered Medical Decision Narrative: In summary patient is a 54-year-old female who presents the emergency department for evaluation of finger pain and swelling. patient is hemodynamically stable upon arrival, afebrile. Significant swelling, pain and fluctuance of the left index finger. Differential diagnosis includes abscess, foreign body, cellulitis. Initial workup will be conducted with labs, x-ray. Initial inventions include I&D. Initial workup reviewed by me unremarkable with the exception of elevated CRP. Bedside ultrasound did not reveal any foreign body. Upon repeat evaluation patient acceptable resolution of symptoms. Given this patient is appropriate for discharge home with instructions to complete Augmentin. <Tyler Manzano MD - Last Filed: 12/03/24 23:09> Vital Signs: 12/03/24 14:12 12/03/24 15:01 12/03/24 15:30 Temperature 98.8 F Temperature Source Temporal Artery Scan Pulse Rate 72 65 Pulse Rate [Radial] 71 Respiratory Rate 20 Blood Pressure 150/77 H 158/83 H Blood Pressure [R Arm] 195/86 H Blood Pressure Mean [R Arm] 122 Blood Pressure Source 02 Sat by Pulse Oximetry 99 100 97 Oxygen Delivery Method Room Air Room Air Room Air 12/03/24 16:00 12/03/24 17:28 Temperature 98.8 F Temperature Source Temporal Artery Scan Pulse Rate 70 68 Pulse Rate [Radial] Respiratory Rate 18 Blood Pressure 155/95 H 140/70 Blood Pressure [R Arm] Blood Pressure Mean [R Arm] Blood Pressure Source Automatic Cuff 02 Sat by Pulse Oximetry 97 Oxygen Delivery Method Room Air Room Air Lab Data Lab Results 12/03/24 16:37: WBC 9.8, RBC 4.47, Hgb 12.2, Hct 37.9, MCV 84.8, MCH 27.3, MCHC 32.2, RDW 13.3, Plt Count 221, MPV 11.0 H, Neut % (Auto) 77.4, Lymph % (Auto) 11.9, [place] % (Auto) 9.6 H, Eos % (Auto) 0.6, Baso % (Auto) 0.2, Neut # (Auto) 7.6, Lymph # (Auto) 1.2, [place] # (Auto) 0.9, Eos # (Auto) 0.1, Baso # (Auto) 0.0, ESR 17, Sodium 137, Potassium 3.7, Chloride 102, Carbon Dioxide 27, Anion Gap 11.7, BUN 20 H, Creatinine 0.90, Estimated Creat Clear 118, Estimated GFR 65, Est GFR ( Amer) 79, Glucose 108 H, Lactate 0.9, Calcium 8.9, Total Bilirubin 0.5, AST 29, ALT 22, Alkaline Phosphatase 58, C-Reactive Protein 78.9 H, Total Protein 7.3, Albumin 4.4, Globulin 2.9, Albumin/Globulin Ratio 1.5 Orders (Tests/Meds): ED MEDICATIONS Discontinued Medications Generic Name Dose Route Start Last Admin Trade Name Freq PRN Reason Stop Dose Admin Lidocaine HCl 10 ml 12/03/24 16:28 12/03/24 16:29 Lidocaine 1% 10ml Mdv IJ 12/03/24 16:29 10 ml ONCE ONE Administration Tetanus/Reduced Diphtheria/Acell Pertussis 0.5 ml 12/03/24 15:28 12/03/24 16:12 Tet/Diphth/Pert-Adult 0.5ml Syringe IM 12/03/24 15:29 0.5 ml .ONCE ONE Administration ORDERS Category Date Time Status Hand XR left minimum 3 views [XR hand LT min 3V] Stat Exams 12/03/24 15:29 Completed CBC w/Auto Diff [Complete Blood Count Auto Diff] Stat Lab 12/03/24 16:37 Completed CMP [Comprehensive Metabolic Panel] Stat Lab 12/03/24 16:37 Completed CRP [C-Reactive Protein] Stat Lab 12/03/24 16:37 Completed Erythrocyte Sedimentation Rate Stat Lab 12/03/24 16:37 Completed Lactic Acid Stat Lab 12/03/24 16:37 Completed Wound Culture and Gram Stain Stat Micro 12/03/24 22:14 Ordered Medical Decision Narrative: In summary patient is a 54-year-old female who presents the emergency department for evaluation of finger pain and swelling. patient is hemodynamically stable upon arrival, afebrile. Significant swelling, pain and fluctuance of the left index finger. Differential diagnosis includes abscess, foreign body, cellulitis. Initial workup will be conducted with labs, x-ray. Initial inventions include I&D. Initial workup reviewed by me unremarkable with the exception of elevated CRP. Bedside ultrasound did not reveal any foreign body. Upon repeat evaluation patient acceptable resolution of symptoms. Given this patient is appropriate for discharge home with instructions to complete Augmentin. I was consulted by the NANDINI, and we discussed the complexity of the problems being addressed.I approved the treatment and management plan for this patient?s care in the Emergency Department, thus performing a substantive portion of the medical decision making.Signed, Tyler Manzano MD [facility] Procedures <PELON Poole - Last Filed: 12/03/24 22:16> Abscess I/D Site: hand Side (if applicable): left Local Anesthetic: lidocaine 1% Amount of anesthesia used (mL): 1 Technique: incised with #11 blade Amount of fluid expressed (mL): 1 Irrigation: Yes Packing used?: none Critical Care <PEOLN Poole - Last Filed: 12/03/24 22:16> Critical Care Time Critical Care Time: No
[2024-12-03 16:00] VITALS: BP 155/95; PULSE 70; O2SAT 97
[2024-12-03] MEDS: TET/DIPHTH/PERT-ADULT 0.5ML SYRINGE 0.5 ML IM (16:12)
[2024-12-03] MEDS: LIDOCAINE 1% 10ML MDV 10 ML IJ (16:29)
[2024-12-03 16:46] LABS: Basophils % 0.2 % (0.1-2.0); Eosinophils # 0.1 K/mm3 (0.0-0.4); Eosinophils % 0.6 % (0.1-12.0); Hematocrit 37.9 % (37.0-47.0); Hemoglobin 12.2 g/dL (12.2-16.2); Lymphocytes # 1.2 K/mm3 (0.7-4.5); Lymphocytes % 11.9 % (10-50); Mean Corpuscular HGB Conc 32.2 g/dL (31.8-35.4); Mean Corpuscular Hemoglobin 27.3 pg (27.0-31.2); Mean Corpuscular Volume 84.8 fl (81-99); Monocytes # 0.9 K/mm3 (0.1-1.0); Monocytes % 9.6 % (1.7-9.3); Neutrophils # 7.6 K/mm3 (1.8-7.8); Neutrophils % 77.4 % (37.0-80.0); Platelet Count 221 K/mm3 (142-424); Red Blood Count 4.47 M/mm3 (4.20-5.40); Red Cell Distribution Width 13.3 % (11.5-17.5); White Blood Count 9.8 K/mm3 (4.8-10.8)
[2024-12-03 16:54] LABS: Albumin Level 4.4 g/dl (3.5-5.0); Chloride 102 mmol/L (98-107); Sodium 137 mmol/L (136-145)
[2024-12-03 16:55] LABS: Potassium 3.7 mmoL/L (3.5-5.1)
[2024-12-03 16:57] LABS: Alanine Aminotransferase 22 U/L (12-78); Albumin/Globulin Ratio 1.5 (1.1-1.8); Alkaline Phosphatase 58 U/L (38-126); Anion Gap 11.7 mEq/L (5-15); Aspartate Amino Transferase 29 U/L (14-36); Bilirubin,Total 0.5 mg/dl (0.2-1.3); Blood Urea Nitrogen 20 mg/dl (7-17); Carbon Dioxide 27 mmol/L (22.0-30.0); Creatinine Clearance Estimated 118 mL/min (50-200); Estimated Glomerular Filt Rate 65 ml/min (>60); GFR (African American) 79 ML/MIN (>60); Globulin 2.9 g/dL (1.3-3.2); Lactic Acid 0.9 mmol/L (0.7-2.1); Total Protein,Serum 7.3 g/dl (6.3-8.2)
[2024-12-03 16:58] LABS: Calcium 8.9 mg/dl (8.4-10.2); Glucose 108 mg/dl (74-100)
[2024-12-03 17:03] LABS: C-Reactive Protein 78.9 mg/L (0-4)
[2024-12-03 17:28] VITALS: BP 140/70; PULSE 68; RESP 18; TEMP 37.1; O2SAT 97
[2024-12-03 18:12] LABS: Erythrocyte Sedimentation Rate 17 mm/hr (0-30)
--- NOTE | 2024-12-05 12:43 | PC.NURSE ---
discusssed wound culture with , no new orders
--- NOTE | 2024-12-08 10:11 | PC.NURSE ---
DISCUSSED WOUND CULTURE WITH DR YU, CHECKED ON PT WHO REPORTS IMPROVEMENT OF WOUND. INSTRUCTED OF MEDICATION CHANGE, RX SENT TO [facility] PER PT REQUEST. PT V/U
== END 2024-12-03 17:31 | disposition home or self-care (01) ==
PROVIDERS: Physician Assistant; Emergency Provider Emergency Medicine; PCP Physician Assistant
DX: L03.012 Cellulitis of left finger (principal); B95.61 Methicillin susceptible Staphylococcus aureus infection as the cause of diseases classified elsewhere; M79.645 Pain in left finger(s); R50.9 Fever, unspecified; Z23 Encounter for immunization
CPT/HCPCS: 10060; 73130; 80053; 83605; 85025; 85651; 86140; 87070; 87077; 87186; 87205; 90471; 90715; 99283

== ENCOUNTER 2025-01-23 13:02 | Outpatient (CLI) | payer OTHER, SELFPAY ==
--- NOTE | 2025-01-23 13:07 | XR_ITS ---
FINAL REPORT TECHNIQUE: Chest PA & Lateral CLINICAL HISTORY: Chest pain COMPARISON: 05/01/2019 FINDINGS: 2 views of the chest were performed. The heart size is normal. The mediastinum is within normal limits. There is no acute cardiopulmonary process. There is calcified granuloma in the medial left upper lobe. There are no pleural effusions. There is no pneumothorax. The bony thorax appears intact. IMPRESSION: No acute cardiopulmonary process. Reviewed, Interpreted and Dictated by Ag Pike MD Transcribed by Shelley Hardy Authenticated and [facility]
--- NOTE | 2025-01-23 13:07 | XR_ITS ---
FINAL REPORT CLINICAL HISTORY: Left sided rib/chest pain COMPARISON: None FINDINGS: LEFT RIBS 3 views of the left ribs were obtained. There is no acute displaced left rib fracture. The visualized bony structures are well aligned. There is no pneumothorax. IMPRESSION: No obvious left rib fracture. No pneumothorax. Reviewed, Interpreted and Dictated by Ag Pike MD Transcribed by Shelley Hardy Authenticated and [facility]
== END 2025-01-23 23:59 | disposition home or self-care (01) ==
LOC: RAD 13:03
PROVIDERS: PCP Physician Assistant; Visit Provider Physician Assistant
DX: R07.89 Other chest pain (principal); S20.212A Contusion of left front wall of thorax, initial encounter
CPT/HCPCS: 71046; 71100

== ENCOUNTER 2025-03-21 07:12 | Outpatient (CLI) | payer OTHER, SELFPAY ==
--- OUTSIDE RECORDS SUMMARY | 2025-03-21 07:16 | XMS_ITS | Continuity of Care Document ---
Author Organization [place] - Cherry Bird., [facility] Address [address] [place] [address] Assessment No assessment recorded. Plan of Treatment Reminders Order Date Submit Date Provider Last Modified By Organization Details Last Modified Time Details Appointments FOLLOW UP 2024 03:00P M Jenae Ellis PA-C Not available Not available Not available Lab None recorded. Referral hand surgeon referral 2024 025 [facility], [address], [place], [address], 02/27/2025 10:33:47 Procedures None recorded. Surgeries None recorded. Imaging None recorded. Medication Orders None recorded. Patient TargetsNo targets recorded. Patient InstructionsNo instructions recorded. Reason for Referral Hand Surgeon Referral for No dule on finger Referring Physician: Jenae Ellis, Family Medicine, Encounter Date: 02/13/2025 Results Created Date Observation Date Name Description Value Unit Range Abnormal Flag Note LastModifiedBy Organization Detail LastModifiedTime 02/03/2001/23/2025 XR, chest , 2 view No observ ation record ed. [address] (X-Ray) [address] [place] [address] [address], [place], [address], 02/08/2025 09:48:39 02/03/20 25 01/19/2025 XR, ribs, unila teral , 2 view No observ ation record ed. [address] (X-Ray) [address], [place], [place], [address], 02/08/2025 09:48:39 Result Notes None recorded. Problems Name Problem SNOMED Code Status Onset Date Resolution Date Notes Provider Name and Address Organization Details Recorded Time Adult attention deficit hyperacti vity disorder 730383564 Active 2023 PELON Shin [address] [place] [address], [address] 8, [employer] 4 11:17:34 Attention deficit hyperacti vity disorder 486712729 Active 2023 PELON Shin [address] [place] [address], [address]30[address]277 8, [employer] 10:24:12 Type 2 diabetes mellitus without complicat ion 721720814 Active 2024 PELON Shin [address] [place] [address], 465[address]-997 8, [employer] 09:33:55 Osteoarth ritis 847412062 Active 2024 PELON Shin [address] [place] [address], 73269-127 8, [employer] 09:34:01 Depressiv e disorder 38007853 Active 2024 PELON Shin [address] [place] [address], 295[address]872 8, [employer] 5 14:23:24 Paronychi a of finger 864058411 Completed 202402/13/2025 PELON Shin [address] [place] [address], [address]45[address]-723 8, [employer] 5 10:24:46 Essential hypertens ion 30132019 Active 2024 PELON Shin [address] [place] [address], [address]480 8, [employer] 5 10:24:25 Contusion of left chest wall [id number] 18693 Completed 202402/13/2025 PELON Shin [address] [place] [address], [address]-436 8, [employer] 10:24:22 Nodule on finger 144131811 Active 2024 PELON Shin [address] [place] [address], 26[address]525 8, [employer] 10:24:37 Tobacco dependenc e syndrome 39895436 Active 2024 PELON Shin [address] [place] [address], 851[address]-512 8, [employer] 17:26:43 Problem Notes None recorded. Procedures Surgical History Date Name Laterality Status Provider Name and Address Organization Details Recorded Time 11/02/19 Diabetic Foot Screen completed PELON Shin [address] [place] [address], [phone], [employer] 11/02/2024 12:31:17 05/24/20 24 Most Recent Mammogram completed [facility] [employer] 12/28/2024 09:00:27 01/20/20 24 Date of Last Pap Smear completed [facility] 12/28/2024 09:01:16 Breast Biopsy completed [employer] 07/06/2024 14:59:08 Caesarean Section completed [employer] 07/06/2024 14:59:08 Tonsillectomy completed [employer] 07/06/2024 14:59:08 Tubal Ligation completed [employer] 07/06/2024 14:59:08 Orthopedic Surgery completed [employer] 07/06/2024 14:59:08 Imaging Results None recorded. Procedure Notes None recorded. Medical Equipment None Reported. Allergies No known drug allergies Medications Name Sig Start Date Stop Date Status Note LastModified by Organization Details LastModified Time Effexor XR 75 mg capsule,ext ended release 1 daily for depressio n 2024 active Not Available Not Available Not Avai lable clindamycin HCl 300 mg capsule TAKE 1 CAPSULE BY MOUTH THREE TIMES DAILY FOR 10 DAYS 07/06 completed Not Available Not Available Not Available atorvastati n 10 mg tablet TAKE 1 TABLET BY MOUTH EVERY DAY AT BEDTIME FOR CHOLESTER OL active Not Available Not Available No t Available sulfamethox azole 400 mg-trimetho prim 80 mg tablet TAKE 1 TABLET BY MOUTH TWICE DAILY FOR 10 DAYS FOR HAND INFECTION 12/26 completed Not Available Not Available Not Available glipizide ER 10 mg tablet, extended release 24 hr TAKE 1 TABLET BY MOUTH EVERY DAY active Not Available Not Available No t Available meloxicam 15 mg tablet TAKE 1 TABLET BY MOUTH EVERY DAY active Not Available Not Available No t Available ciprofloxac in 500 mg tablet TAKE 1 TABLET BY MOUTH EVERY 12 HOURS FOR 10 DAYS 02/13 completed Not Available Not Available Not Available lisinopril 20 mg-hydrochl orothiazide 25 mg tablet TAKE 1 TABLET BY MOUTH EVERY DAY active Not Available Not Available No t Available aspirin 81 mg chewable tablet Chew 1 tablet every day by oral route. active Not Available Not Available No t Available clobetasol 0.05 % topical ointment APPLY TOPICALLY TO THE AFFECTED AREA TWICE DAILY 07/06 completed Not Available Not Available Not Available levofloxaci n 500 mg tablet TAKE 1 TABLET BY MOUTH EVERY 24 HOURS FOR 7 DAYS 07/06 completed Not Available Not Available Not Available methylpredn isolone 4 mg tablets in a dose pack 07/06 completed Not Available Not Available Not Available clobetasol 0.05 % scalp solution APPLY TOPICALLY TO THE SCALP EVERY DAY active Not Available Not Available No t Available metformin ER 500 mg tablet,exte nded release 24 hr TAKE 2 TABLETS BY MOUTH EVERY DAY FOR DIABETES 07/06 completed Not Available Not Available Not Available amoxicillin 875 mg-potassiu m clavulanate 125 mg tablet TAKE 1 TABLET BY MOUTH EVERY 12 HOURS FOR 10 DAYS 12/26 completed Not Available Not Available Not Available dextroamphe tamine-amph etamine ER 25 mg 24hr capsule,ext end release TAKE ONE CAPSULE BY MOUTH 2 TIMES A DAY active Not Available Not Available No t Available venlafaxine ER 75 mg tablet,exte nded release 24 hr TAKE 1 TABLET BY MOUTH DAILY active Not Available Not Available No t Available Ozempic 2 mg/dose (8 mg/3 mL) subcutaneou s pen injector INJECT 2MG SUBCUTANE OUSLY ONCE A WEEK 12/12 completed Not Available Not Available Not Available Mounjaro 5 mg/0.5 mL subcutaneou s pen injector inject 0.5 ML SUBCUTANE OUSLY ONCE WEEKLY active Not Available Not Available No t Available Mounjaro 2.5 mg/0.5 mL subcutaneou s pen injector ADMINISTE R 2.5 MG UNDER THE SKIN EVERY WEEK FOR DIABETES 12/12 completed Not Available Not Available Not Available Vitals Date Recorded Body height Body mass index (BMI) Body weight Oxygen saturation Oxygen saturation in Arterial blood by Pulse oximetry Heart rate Body temperature Systolic blood pressure Diastolic blood pressure Provider Name and Address Organization Details Last Updated DateTime 5 175.26 cm 31.4 kg/m2 81745.7 4 g 99 % 99 % 54 /min 98.2 [degF] 112 mm[Hg] 74 mm[Hg] Felicia [employer]. 08:38:58 Social History Question Answer Notes LastModified by Organizat ion Details LastModified Time Tobacco Smoking Status Former Smoker Felicia [employer] 07/06/2024 14:59:08 Do You Have An Advance Directive? No Information n ot available 07/06/2024 Is Your Home Air Conditioned? Yes Information not available 07/06/2024 Do You Wear A Helmet When Biking? Yes Information not available 07/06/2024 Are You Blind Or Do You Have Difficulty Seeing? No Information n ot available 07/06/2024 What Is Your Level Of Caffeine Consumption? Heavy Information not available 07/06/2024 What Type Of Merchandise Complaint Adjuster Do You Use? None Information not available 07/06/2024 In The 14 Days Before Symptom Onset, Have You Had Close Contact With A Laboratory-confirm ed COVID-19 While That Case Was Ill? No Information n ot available 07/06/2024 In The 14 Days Before Symptom Onset, Have You Had Close Contact With A Person Who Is Under Investigation For COVID-19 While That Person Was Ill? No Information not available 07/06/2024 Have You Been To An Area Known To Be High Risk For COVID-19? No Information not available 07/06/2024 Are You Deaf Or Do You Have Serious Difficulty Hearing? No Information not available 07/06/2024 What Type Of Diet Are You Following? REGULAR Information n ot available 07/06/2024 What Is The Highest Grade Or Level Of School You Have Completed Or The Highest Degree You Have Received? [id number] Information not available 09/05/2024 Who Is Your Employer? [employer], [employer], [employer] Child Support Information not available 07/06/2024 How Many Days Of Moderate To Strenuous Exercise, Like A Brisk Walk, Did You Do In The Last 7 Days? 5 Information not available 07/06/2024 Have There Been Any Changes To Your Family Or Social Situation? No Information no t available 07/06/2024 When Did You Quit Smoking? 6-10yearssinc elastcigarett e Information not available 07/06/2024 Are There Any Guns Present In Your Home? Yes Information not available 07/06/2024 Which Of Your Hands Is Dominant? Right Information n ot available 07/06/2024 Do You Have A Medical Power Of Human Resources Psychologist? Yes Information not available 07/06/2024 What Was The Date Of Your Most Recent Tobacco Screening? 03/06/2025 [email or web address] Information not available 03/06/2025 Are There Any Occupational Health Risks Where You Work? No Information not available 07/06/2024 Do You Have Any Pets? Yes Information not available 07/06/2024 What Is Your Relationship Status? Information not available 07/06/2024 Have You Repeated Any Grades? No Information not available 07/06/2024 Do You Use Your Seat Belt Or Car Seat Routinely? Yes Information not available 07/06/2024 Are You Sexually Active? No Information not available 07/06/2024 Do You Have Smoke And Carbon Monoxide Detectors In Your Home? Yes Information not available 07/06/2024 At What Age Did You Start Smoking Tobacco? 13 Information not available 07/06/2024 Are You Passively Exposed To Smoke? No Information no t available 07/06/2024 Are There Any Smokers In Your House? No Information not available 07/06/2024 How Much Tobacco Do You Smoke? 1 PPD Information not available 07/06/2024 Do You Participate In Social Media? Yes Information not available 09/05/2024 What Types Of Sporting Activities Do You Participate In? Horse Riding Information not available 07/06/2024 Do You Use Sunscreen Routinely? No Information not available 07/06/2024 Has Tobacco Cessation Counseling Been Provided? No Information not available 09/05/2024 On What Date Was Tobacco Cessation Counseling Provided? 03/06/2025 [email or web address] Information not available 03/06/2025 How Many Years Have You Smoked Tobacco? 33 Information not available 07/06/2024 Have You Recently Traveled Abroad? No Information not available 07/06/2024 Do You Have Difficulty Walking Or Climbing Stairs? No Information not available 07/06/2024 Are You Currently In School? No Information not available 07/06/2024 Do You Have Any Dietary Restrictions? No Information not available 07/06/2024 Sex: Female Functional Status Question Answer Note LastModified by Organizat ion Details LastModified Time Do you use any illicit or recreational drugs? No Information not available 07/06/2024 Do you or have you ever used any other forms of tobacco or nicotine? No Information not available 07/06/2024 What is your level of alcohol consumption? None Information not available 07/06/2024 Are you currently employed? Yes Information not available 07/06/2024 Do you have transportation difficulties? No Information not available 07/06/2024 Are you able to walk? YESWOREST Information not available 07/06/2024 Do you have difficulty doing errands alone? No Information not available 07/06/2024 Are you able to care for yourself? Yes Information not available 07/06/2024 Do you have difficulty dressing or bathing? No Information not available 07/06/2024 What is your exercise level? Moderate Information not available 07/06/2024 Mental Status Question Answer Note LastModified by Organizat ion Details LastModified Time Do you feel stressed (tense, restless, nervous, or anxious, or unable to sleep at night)? [id number] Information not available 09/05/2024 Do you have difficulty concentrating, remembering or making decisions? No Information no t available 07/06/2024 Are you or have you been involved with bullying? No Information not available 07/06/2024 Family History Relationship Description Onset Age of this Age Resolved Age Notes LastModified by Organization Details LastModified Time Mother Malignant tumor of breast Not available 2023 14:59:07 Maternal Grandmother Arthritis Not available 06/27 14:59:07 Maternal Grandmother Heart disease Not available 2023 14:59:07 Maternal Grandmother Osteoporosis Not available 14:59:07 Maternal Grandmother Diabetes mellitus Not available 2023 14:59:07 Medical History Condition Response Coronary Artery Disease N Other N Gout N Kidney Stones N Blood Diseases N Hyperthyroidism N Breast Cancer N Blood Transfusion N Emergency room visit since last appointm ent. N Hypothyroidism N Lung Disease N Dermatologic Disorders N Depression Y COPD N Developmental or Behavioral Disorders N Defects or Inherited Disease N Breast Problem N Difficulty Swallowing N Anesthesia Complications N History of STI N Anxiety Disorder N Meniere's disease N Autoimmune disease N Muscle, Joint, or Bone Problems N Obesity Y Vision or Eye Problems Y Arthritis Y Infertility N Polyps N Mental Disorder N Congenital Anomalies N Acid Reflux (GERD) N Cancer N Stroke N Neurologic/Epilepsy N Endometriosis N Bladder or Kidney Problems N High Cholesterol N Liver Disease N Organ Transplant N Psychiatric/Mental Health Condition N Headaches N Schizophrenia N Fibromyalgia N Dialysis N Kidney Disease N Allergies/Hayfever N Heart Problems N Ear or Hearing Problems N Hospitalizations N Learning Disorder N Artificial Joints N Thyroid Problems N GI Problems N Acne N ADD/ADHD Y Eating Disorder Y Anemia N Constipation N Mental Illness N Ovarian Cancer N Diabetes Y Bedwetting N Hepatitis/Liver Disease N Tuberculosis N Eczema N Diverticulitis N Abuse/Domestic Violence N Asthma N Trauma/Violence N Substance Abuse N Reflux/GERD N Depression/ depression N Hepatitis N Heart Disease N Pulmonary Embolism N Tourette Syndrome N Pre-Eclampsia N Hypertension Y Chronic Ear Infections N Osteoporosis Y Chicken Pox N Autism Spectrum Disorder (ASD) N Thrombophilias N Gynecological History Statement/Question Response If Post Menopausal, Age at Menopause 52 Abnormal Pap N Menses Monthly N HPV Vaccine N Date of Last Pap Smear 01/20/2024 Current Control Method Menopause Most Recent Mammogram 05/24/2024 Age at First Child 30 Obstetrics History GPAL:G 0 P 0 0 0 0 Immunizations Vaccine Type Date Status Note Provider Nam e and Address Organization Details Recorded Time Tdap 12/03/2024 completed Felicianick delatorre, [employer]. 12/26/2024 15:39:28 Past Encounters Encounter ID Performer Location Encounter Start Date Encounter Closed Date Diagnosis/Indication Diagnosis SNOMED-CT Code Diagnosis ICD10 Code Diagnosis Note [id number] PELON Shin [facility] [address] [place] [address] 02/13/2025 08:29:56 02/13/2025 09:02:21 Nodule on finger [id number] R22.32 Cystic appearance - ? ganglion cyst Health Concerns Section Related Observation LastModified by Organization Detai ls LastModified Time None Recorded Concern Status LastModified by Organization Details LastModified Time None Recorded Payers Encounter Date Sequence Insurance Name Policy Number Policy [place] Covered Member ID [place] Member ID Guarantor Name 02/13/2025 1 JEREMY [id number] Leslye Morrison [id number] Leslye Morrison Notes Date Note Type Note Provider Name and Address Organization Details Recorded Time 02/13/2025 text/html Nodule on left middle finger at the base of her finger. Started after cleaning out some brush row. Her arms were scratched but she does not recall any injury to that area. The nodule is firm, and non-tender. No redness or drainage. PELON Shin [address] [place] [address], [phone], [employer] [email or web address] 02/13/2025 10:26:50 OBGyn Episode No OBEpisode recorded.
--- OUTSIDE RECORDS SUMMARY | 2025-03-21 07:16 | XMS_ITS | Data Portability ---
Author Organization [facility] Address [address] [facility] [place] [address] Assessment No assessment recorded. Plan of Treatment Reminders Order Date Submit Date Provider Last Modified By Organization Details Last Modified Time Details Appointments FOLLOW UP 30 2024 03:00P Roger Ellis PA-C Not available Not available Not available Lab HbA1c (hemoglob in A1c), blood [address], [address] [place], [address], 11/02/2024 08:53:07 microalbu min/creat inine, mass ratio, urine [address], [address] [place], [address], 11/02/2024 11:11:01 Referral hand surgeon referral 2024 025 [facility], [address] [facility], [address], [place], [address], 02/27/2025 10:33:47 Procedures None recorded. Surgeries None recorded. Imaging LDCT, chest, for lung cancer screening 2024 025 [email or web address] [facility] ([facility]), [address], [place], [address], 03/20/2025 14:42:45 Medication Orders ciproflox acin 500 mg tablet 2024 025 [id number], [address] [facility] [address] , [place], [id number], 02/13/2025 08:40:20 Mounjaro 2.5 mg/0.5 mL subcutane ous pen injector 2024 025 [email or web address] [facility][id number], [address] [facility] [address], [place], [id number], 12/12/2024 14:20:58 Lipitor 10 mg tablet 2024 025 [facility][id number], [address] [facility] [address] , [place], [id number], 11/02/2024 12:32:51 Patient TargetsNo targets recorded. Patient Instructions Encounter Date Encounter Id Patient Instructions Last Modified By Organization Details Last Modified Time 09/05/2024 [id number] attention defici t hyperactivity disorder (ADHD) in adults: care instructions [email or web address] Not available 09/05/2024 10:14:42 body mass index: care instructions [email or web address] Not available 09/05/2024 10:14:43 learning about healthy weight [email or web address] Not available 09/05/2024 10:14:43 11/02/2024 [id number] arthritis: care instructions [email or web address] Not available 11/02/2024 12:32:45 type 2 diabetes: care instructions [email or web address] Not available 11/02/2024 08:53:07 learning about mood disorders Not available 11/02/2024 12:32:45 attention defici t hyperactivity disorder (ADHD) in adults: care instructions [email or web address] Not available 11/02/2024 12:32:45 body mass index: care instructions [email or web address] Not available 11/02/2024 12:32:45 learning about healthy weight Not available 11/02/2024 12:32:45 12/26/2024 [id number] attention defici t hyperactivity disorder (ADHD) in adults: care instructions [email or web address] Not available 12/26/2024 17:45:00 03/06/2025 [id number] arthritis: care instructions Not available 03/06/2025 17:37:03 deciding about using medicines to quit smoking [email or web address] Not available 03/06/2025 17:26:58 Quitting Tobacco : Care Instructions [email or web address] Not available 03/06/2025 17:26:58 high blood pressure: care instructions [email or web address] Not available 03/06/2025 17:37:03 learning about high blood pressure [email or web address] Not available 03/06/2025 17:37:03 learning about mood disorders [email or web address] Not available 03/06/2025 17:37:03 attention defici t hyperactivity disorder (ADHD) in adults: care instructions [email or web address] Not available 03/06/2025 17:37:03 Reason for Referral Hand Surgeon Referral for No dule on finger Referring Physician: Jenae Ellis, Family Medicine, Encounter Date: 02/13/2025 Results Created Date Observation Date Name Description Value Unit Range Abnormal Flag Note LastModifiedBy Organization Detail LastModifiedTime 11/02/19 25 11/02/2024 micro album in/cr eatin ine, mass ratio , urine Microalbumin 30 mg/L Not Available [address], [address], 11/02/2024 11:04:29 11/02/19 25 11/02/2024 micro album in/cr eatin ine, mass ratio , urine Creatinine 200 mg/dL Not Available [facility] [address] [place] [address], [address], 11/02/2024 11:04:29 11/02/19 25 11/02/2024 micro album in/cr eatin ine, mass ratio , urine Ratio <30 mg/g Not Available [facility] [address] [place] [address], [address], 11/02/2024 11:04:29 11/02/19 25 11/02/2024 HbA1c (hemo globi n A1c), blood HbA1c 5.3 % Not Available [facility] [address], [place], [address], 11/02/2024 08:50:42 02/03/20 25 01/23/2025 XR, chest , 2 view No observ ation record ed. [address] (X-Ray) [address], [place], [place], [address], 02/08/2025 09:48:39 02/03/20 25 01/19/2025 XR, ribs, unila teral , 2 view No observ ation record ed. [address] (X-Ray) [address], [place], [place], [address], 02/08/2025 09:48:39 Result Notes None recorded. Problems Name Problem SNOMED Code Status Onset Date Resolution Date Notes Provider Name and Address Organization Details Recorded Time Adult attention deficit hyperacti vity disorder 852583919 Active 2023 PELON Shin [address] [place] [address], [address], [employer] 4 11:17:34 Attention deficit hyperacti vity disorder 039885609 Active 2023 PELON Shin [address] [place] [address], [address], [employer] 5 10:24:12 Type 2 diabetes mellitus without complicat ion 539076679 Active 2024 PELON Shin [address] [place] [address], [address] 8, [employer] 5 09:33:55 Osteoarth ritis 152057821 Active 2024 PELON Shin [address] [place] [address], [address] 8, [employer] 5 09:34:01 Depressiv e disorder 04266697 Active 2024 PELON Shin [address] [place] [address], [address], [employer] 14:23:24 Paronychi a of finger 893363149 Completed 202402/13/2025 PELON Shin [address] [place] [address], [address] 8, [employer] 10:24:46 Essential hypertens ion 78976595 Active 2024 PELON Shin [address] [place] [address], [address] 8, [employer] 10:24:25 Contusion of left chest wall 229046049078 08721 Completed 202402/13/2025 PELON Shin [address] [place] [address], [address] 8, [employer] 10:24:22 Nodule on finger 969242431 Active 2024 PELON Shin [address] [place] [address], [address] 8, [employer] 10:24:37 Tobacco dependenc e syndrome 58334247 Active 2024 PELON Shin [address] [place] [address], [address] 8, [employer] 17:26:43 Problem Notes None recorded. Procedures Surgical History Date Name Laterality Status Provider Name and Address Organization Details Recorded Time 11/02/19 25 Diabetic Foot Screen completed PELON Shin [address] [place] [address], [address], [employer] 11/02/2024 12:31:17 05/24/20 24 Most Recent Mammogram completed [employer] 12/28/2024 09:00:27 01/20/20 24 Date of Last Pap Smear completed [employer] 12/28/2024 09:01:16 Breast Biopsy completed [employer] 07/06/2024 14:59:08 Caesarean Section completed [employer] 07/06/2024 14:59:08 Tonsillectomy completed [employer] 07/06/2024 14:59:08 Tubal Ligation completed [employer] 07/06/2024 14:59:08 Orthopedic Surgery completed [employer] 07/06/2024 14:59:08 Imaging Results None recorded. Procedure [...] Details Last Updated DateTime 5 175.26 cm 34.1 kg/m2 593764. 84 g 97 % 97 % 60 /min 97.9 [degF] 134 mm[Hg] 80 mm[Hg] [facility] [employer], [facility]. 5 08:33:30 Date Recorded Body height Body mass index (BMI) Body weight Body temperature Heart rate Oxygen saturation Oxygen saturation in Arterial blood by Pulse oximetry Systolic blood pressure Diastolic blood pressure Provider Name and Address Organization Details Last Updated DateTime 5 175.26 cm 34 kg/m2 244579. 68 g 98.2 [degF] 56 /min 96 % 96 % 104 mm[Hg] 68 mm[Hg] [employer] 5 15:43:37 Date Recorded Body height Body mass index (BMI) Body weight Oxygen saturation Oxygen saturation in Arterial blood by Pulse oximetry Heart rate Body temperature Systolic blood pressure Diastolic blood pressure Provider Name and Address Organization Details Last Updated DateTime 5 175.26 cm 31.4 kg/m2 09288.7 4 g 99 % 99 % 54 /min 98.2 [degF] 112 mm[Hg] 74 mm[Hg] [employer] 5 08:38:58 Date Recorded Body height Body mass index (BMI) Body weight Body temperature Heart rate Oxygen saturation Oxygen saturation in Arterial blood by Pulse oximetry Systolic blood pressure Diastolic blood pressure Provider Name and Address Organization Details Last Updated DateTime 5 175.26 cm 30.5 kg/m2 45913.1 3 g 98.3 [degF] 57 /min 99 % 99 % 116 mm[Hg] 75 mm[Hg] [employer] 5 17:02:10 Date Recorded Body height Body mass index (BMI) Body weight Heart rate Oxygen saturation Oxygen saturation in Arterial blood by Pulse oximetry Systolic blood pressure Diastolic blood pressure Provider Name and Address Organization Details Last Updated DateTime 4 175.26 cm 33.8 kg/m2 367724. 65 g 68 /min 97 % 97 % 137 mm[Hg] 83 mm[Hg] [employer] 4 08:09:00 Social History Question Answer Notes LastModified by Organizat ion Details LastModified Time Tobacco Smoking Status Former Smoker [employer] 07/06/2024 14:59:08 Do You Have An Advance [...] Information not available 07/06/2024 What Type Of Senior Operations Analyst Do You Use? None Information not available [...] Or The Highest Degree You Have Received? MS31333-6 Information not available 09/05/2024 Who Is Your Employer? [employer], [employer] Information not available 07/06/2024 How Many Days [...] Do You Have A Medical Power Of Custom Miller? Yes Information not available 07/06/2024 What Was The Date Of Your Most Recent Tobacco Screening? 03/06/2025 Information not available 03/06/2025 Are There Any [...] available 07/06/2024 Do You Participate In Social Plei? Yes Information not available 09/05/2024 What Types Of Sporting Activities Do You Participate In? Horse Riding Information not available 07/06/2024 Do You Use Sunscreen Routinely? No Information not available 07/06/2024 Has Tobacco Cessation Counseling Been Provided? No Information not available 09/05/2024 On What Date Was Tobacco Cessation Counseling Provided? 03/06/2025 [email or web address] Information not available 03/06/2025 How Many Years [...] anxious, or unable to sleep at night)? [id number] Information not available 09/05/2024 Do you have [...] 2023 14:59:07 Maternal Grandmother Osteoporosis Not available 1 14:59:07 Maternal Grandmother Diabetes mellitus Not available [...] Organization Details Recorded Time Tdap 12/03/2024 completed [facility] 12/26/2024 15:39:28 Past Encounters Encounter ID Performer Location Encounter Start Date Encounter Closed Date Diagnosis/Indication Diagnosis SNOMED-CT Code Diagnosis ICD10 Code Diagnosis Note [id number] PELON Shin [facility] [address] [place] [address] 07/06/2024 14:51:53 07/06/2024 16:18:15 longterm current use of drug therapy for attention deficit hyperactivity disorder 2206155345 38362 Z79.899 Adult atte ntion deficit hyperactivity disorder 103890775 F90.9 [facility] #[id number] reviewedUD S obtainedCS A signed todayNote sent to Dr Huff to refill Adderall XR [id number] PELON Shin [address] [address] 09/05/2024 07:58:44 09/05/2024 08:34:02 Adult attention deficit hyperactivity disorder 983133362 F90.9 Adderall XR refilled by Dr Mckay in [facility] reviewed and appropriat e Body mass index 30+ - obesity 214154487 Z68.33 [id number] PELON Shin [address] [address] 11/02/2024 08:27:07 11/02/2024 09:33:45 Type 2 diabetes mellitus without complication 078748890 E11.9 Adult atte ntion deficit hyperactivity disorder 332778099 F90.9 [facility] Osteoarthritis 396589763 M19.90 Depressive disorder 3548 9007 F32.A Body mass index 30+ - obesity 473541319 Z68.33 [id number] PELON Shin [address] [address] 12/26/2024 15:16:43 12/26/2024 16:32:11 Paronychia of finger 466737575 L03.019 Requested culture from [facility] Adult atte ntion deficit hyperactivity disorder 048290297 F90.9 Adderall XR refilled by Dr Mckay in [facility] reviewed and appropriat e [id number] PELON Shin [address] [address] 02/13/2025 08:29:56 02/13/2025 09:02:21 Nodule on finger 390103881 R22.32 Cystic appearance - ? ganglion cyst [id number] PELON Shin [address] [address] 03/06/2025 16:53:33 03/06/2025 17:28:17 Tobacco dependence syndrome 55302631 F17.200 Adult atte ntion deficit hyperactivity disorder 493182805 F90.9 Depressive disorder 3548 9007 F32.A Osteoarthritis 661686164 M19.90 Essential hypertension 78884311 I10 Health Concerns Section Related Observation LastModified by Organization Detai ls LastModified Time None Recorded Concern Status LastModified by Organization Details LastModified Time None Recorded Advance Directives Directive N: Payers Insurance Date Sequence Insurance Name Policy Number Policy [place] Covered Member ID [place] Member ID Guarantor Name 03/03/2025 1 JEREMY [id number] Leslye Morrison [id number] Leslye Morrison Notes Date Note Type Note Provider Name and Address Organization Details Recorded Time 09/05/2024 text/html Annual WellnessReported bypatient.Diet and Nutrition:healthy diet; discussed vitamin and supplement use; discussed portion control Fracture Risk:no history of fractures Physical Activity:exercises on a regular basis; discussed weightbearing activities Additional Lifestyle Factors:no tobacco use; no alcohol intake Depression Risk:never feels sad, empty, or tearful; no loss of interest in activities Hearing:no loss of hearing Vision:no vision problems Patient presents for followup on ADHD. Doing well. States that medication is effective and denies side effects. PELON Shin [address] [place] [address], [address], [employer]. 09/05/2024 10:16:17 11/02/2024 text/html Patient presents for followup. History of ADHD. Doing well on current meds.History of diabetes. Sugar well controlled. Still some pain in toes but improved. PELON Shin [address] [place] [address], [address], [employer] 11/02/2024 12:34:19 12/26/2024 text/html Patient presents for refills on Adderall. History of ADHD. Medication works well, she is compliant with meds, and denies side effects.Has paronychia of her right pointer finger. Was started on Augmentin and switched to doxycline after wound culture returned in ER. States they lanced it but it got worse. PELON Shin [address] [place] [address], [address], [employer]. 12/26/2024 17:48:44 02/13/2025 text/html Nodule on left m iddle finger at the base of her finger. Started after cleaning out some brush row. Her arms were scratched but she does not recall any injury to that area. The nodule is firm, and non-tender. No redness or drainage. PELON [address]Sin [address] [place], [address], [facility] [employer] 02/13/2025 10:26:50 03/06/2025 text/html Patient presents for followup. History of ADHD. History of HTN, DM, OA, depression. She quit smoking 6 years ago but prior to that she smoked for 33 years.Has ganglion cyst on 3rd knuck - hand surgeon attempted to drain but it did not drain. Goes back in a 4 weeks and will have it surgically excised if it is still present. PELON Shin [address] [place], [address], [facility] [employer] 03/06/2025 17:38:07 OBGyn Episode No OBEpisode recorded.
--- OUTSIDE RECORDS SUMMARY | 2025-03-21 07:16 | XMS_ITS | Clinical Summary ---
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 Name Role Phone Unavailable Primary Care Provider Unavailabl e Social History Tobacco Use Types Packs/Day Years Used Date Smoking Tobacco: Never Assessed Comments Unknown Sex and Gender Information Value Date Recorded Sex Assigned at Not on file Legal Sex Female 9:29 AM EDT Gender Identity Not on file Sexual Orientation Not on file Plan of Treatment Health Maintenance Due Date Last Done Comments Annual Wellness Exam 1973 DTaP/TDaP/Td (1 - Tdap) 1989 Hepatitis B Vaccine (1 of 3 - 19+ 3-dose series) 1989 Cologuard 11/27/2015 Colon Cancer Screening 11/27/2015 Colonoscopy 11/27/2015 FIT 11/27/2015 Sigmoidoscopy 11/27/2015 Virtual Colonography 11/27/2015 Pneumococcal Vaccine 50+ (1 of 1 - PCV) 2020 Zoster (1 of 2) 2020 COVID-19 Vaccine ( - 2023-2 5 season) 2024 Influenza Vaccine (Season Ended) 2025 Meningococcal B Vaccine Aged Out No l onger eligible based on patient's age to complete this topic
--- OUTSIDE RECORDS SUMMARY | 2025-03-21 07:16 | XMS_ITS | Continuity of Care Document ---
Author Organization [place] - [employer] [facility] Address [address] [place] [address] Assessment No assessment recorded. Plan of Treatment Reminders Order Date Submit Date Provider Last Modified By Organization Details Last Modified Time Details Appointments FOLLOW UP 30 2024 03:00P M Jenae Ellis PA-C Not available Not available Not available Lab None recorded. Referral None recorded. Procedures None recorded. Surgeries None recorded. Imaging LDCT, chest, for lung cancer screening 2024 025 [email or web address] [facility] ([facility]), [address], [place], [address], 03/20/2025 14:42:45 Medication Orders None recorded. Patient TargetsNo targets recorded. Patient Instructions Encounter Date Encounter Id Patient Instructions Last Modified By Organization Details Last Modified Time 03/06/2025 [id number] arthritis: care instructions [email or web address] Not available 03/06/2025 17:37:03 deciding about using medicines to quit smoking [email or web address] Not available 03/06/2025 17:26:58 Quitting Tobacco : Care Instructions [email or web address] Not available 03/06/2025 17:26:58 high blood pressure: care instructions [email or web address] Not available 03/06/2025 17:37:03 learning about high blood pressure [email or web address] Not available 03/06/2025 17:37:03 learning about mood disorders [email or web address] Not available 03/06/2025 17:37:03 attention defici t hyperactivity disorder (ADHD) in adults: care instructions [email or web address] Not available 03/06/2025 17:37:03 Reason for Referral None Reported. Problems Name Problem SNOMED Code Status Onset Date Resolution Date Notes Provider Name and Address Organization Details Recorded Time Adult attention deficit hyperacti vity disorder 675430841 Active 2023 PELON Shin [address] [place] [address], [address] 8, [employer] 4 11:17:34 Attention deficit hyperacti vity disorder 241605676 Active 2023 PELON Shin [address] [place] [address], [address]444 8, [employer] 5 10:24:12 Type 2 diabetes mellitus without complicat ion 033122315 Active 2024 PELON Shin [address] [place] [address], 33[address] 8, [employer] 5 09:33:55 Osteoarth ritis 282272736 Active 2024 PELON Shin [address] [place] [address], 73799-135 8, [employer] 5 09:34:01 Depressiv e disorder 73144464 Active 2024 PELON Shin [address] [place] [address], 03379-344 8, [employer] 5 14:23:24 Paronychi a of finger 010114605 Completed 202402/13/2025 PELON Shin [address] [place] [address], 305[address]-868 8, [employer] 5 10:24:46 Essential hypertens ion 48201883 Active 2024 PELON Shin [address] [place] [address], 22343-627 8, [employer] 5 10:24:25 Contusion of left chest wall 490329348953 04995 Completed 202402/13/2025 PELON Shin [address] [place] [address], 46120[address]658 8, [employer]. 10:24:22 Nodule on finger 899313307 Active 2024 PELON Shin [address] [place] [address], 71709-512 8, [employer] 10:24:37 Tobacco dependenc e syndrome 41946046 Active 2024 PELON Shin [address] [place] [address], 94176-689 8, [employer] 17:26:43 Problem Notes None recorded. Procedures Surgical History Date Name Laterality Status Provider Name and Address Organization Details Recorded Time 11/02/19 Diabetic Foot Screen completed PELON Shin [address] [place] [address], [address], [employer] 11/02/2024 12:31:17 05/24/20 24 Most Recent Mammogram completed [facility]. 12/28/2024 09:00:27 01/20/20 24 Date of Last Pap Smear completed [facility]. 12/28/2024 09:01:16 Breast Biopsy completed [facility]. 07/06/2024 14:59:08 Caesarean Section completed [employer]. 07/06/2024 14:59:08 Tonsillectomy completed [facility]. 07/06/2024 14:59:08 Tubal Ligation completed [facility]. 07/06/2024 14:59:08 Orthopedic Surgery completed [facility]. 07/06/2024 14:59:08 Imaging Results None recorded. Procedure [...] and Address Organization Details Last Updated DateTime 175.26 cm 30.5 kg/m2 13147.1 3 g 98.3 [degF] 57 /min 99 % 99 % 116 mm[Hg] 75 mm[Hg] Jo Kapadia [employer] 17:02:10 Social History Question Answer Notes LastModified by Organizat ion Details LastModified Time Tobacco Smoking Status Former Smoker Felicia delatorre, [employer] 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 [id number] Information not available 09/05/2024 Who Is Your Employer? No [employer], [facility], [facility] Child Support Information not available 07/06/2024 How [...] Do You Have A Medical Power Of Banquet Director? Yes Information not available 07/06/2024 What Was The Date Of Your Most Recent Tobacco Screening? 03/06/2025 [email or web address] Information not available 03/06/2025 Are There Any [...] Date Was Tobacco Cessation Counseling Provided? 03/06/2025 Information not available 03/06/2025 How Many Years [...] anxious, or unable to sleep at night)? [id number] Information not available 09/05/2024 Do you have [...] Artery Disease N Other N Gout N Blood Diseases N Kidney Stones N Hyperthyroidism N Blood Transfusion N Breast Cancer N Emergency room visit since last appointm ent. N Lung Disease N COPD N Depression Y Hypothyroidism N Dermatologic Disorders N Defects or Inherited Disease N Developmental or Behavioral Disorders N Breast Problem N Difficulty Swallowing N [...] Organ Transplant N Psychiatric/Mental Health Condition N Dialysis N Schizophrenia N Headaches N Fibromyalgia N Kidney Disease N Allergies/Hayfever N Heart Problems N Ear or Hearing Problems N Hospitalizations N Learning Disorder N Artificial Joints N Thyroid Problems N GI Problems N Acne N ADD/ADHD Y Eating Disorder Y Anemia N Constipation N Mental Illness N Diabetes Y Ovarian Cancer N Bedwetting N Hepatitis/Liver Disease N Tuberculosis N Eczema N Abuse/Domestic Violence N Diverticulitis N Asthma N Trauma/Violence N Substance Abuse N Reflux/GERD N Depression/ depression N Hepatitis N Heart Disease N Pulmonary Embolism N Tourette Syndrome N Chronic Ear Infections N Pre-Eclampsia N Hypertension Y Chicken Pox N Autism Spectrum Disorder (ASD) N Osteoporosis Y Thrombophilias N Gynecological History Statement/Question Response If [...] Details Recorded Time Tdap 12/03/2024 [facility]/26/2024 15:39:28 Past Encounters Encounter ID Performer Location Encounter Start Date Encounter Closed Date Diagnosis/Indication Diagnosis SNOMED-CT Code Diagnosis ICD10 Code Diagnosis Note [id number] PELON Shin [facility] [address] [place] [address] 02/13/2025 08:29:56 02/13/2025 09:02:21 Nodule on finger 470961774 R22.32 Cystic appearance - ? ganglion cyst [id number] PELON Shin [facility] [address] [place] [address] 03/06/2025 16:53:33 03/06/2025 17:28:17 Tobacco dependence syndrome 40560010 F17.200 Adult atte ntion deficit hyperactivity disorder 857230195 F90.9 Depressive disorder 3548 9007 F32.A Osteoarthritis 349520971 M19.90 Essential hypertension 76342307 I10 Health Concerns Section Related Observation LastModified by Organization Detai ls LastModified Time None Recorded Concern Status LastModified by Organization Details LastModified Time None Recorded Payers Encounter Date Sequence Insurance Name Policy Number Policy [place] Covered Member ID [place] Member ID Guarantor Name 03/06/2025 1 JEREMY [id number] Leslye Morrison [id number] Leslye Morrison Notes Date Note Type Note Provider Name and Address Organization Details Recorded Time 03/06/2025 text/html Patient presents for followup. History of ADHD. History of HTN, DM, OA, depression. She quit smoking 6 years ago but prior to that she smoked for 33 years.Has ganglion cyst on 3rd knuckle - hand surgeon attempted to drain but it did not drain. Goes back in a 4 weeks and will have it surgically excised if it is still present. PELON Shin [address] [place] [address], [phone], [facility] [employer] 03/06/2025 17:38:07 OBGyn Episode No OBEpisode recorded.
--- NOTE | 2025-03-21 07:37 | CT_ITS ---
FINAL REPORT TECHNIQUE: Thin section axial images were obtained from the lung apices to the upper abdomen by computed tomography. Reformatted images were obtained and reviewed. This study was performed with techniques to keep radiation doses al low as reasonably achievable (ALARA). Individualized dose reduction techniques using automated exposure control or adjustment of mA and/or kV according to the patient's size were employed. CLINICAL HISTORY: NICOTINE DEPENDENT FORMER SMOKER QUIT 8 YEARS AGO, 1PPD X33 YEARS COMPARISON: 05/07/2022 FINDINGS: CT CHEST LOW DOSE SCREENING 53-year-old female, former smoker who quit 8 years ago, 14-hefv-vglh history. HISTORY: Screening exam for lung cancer. DOSE: CTDI vol: mGy, DLP: mGy*cm TECHNIQUE: Axial CT without IV contrast administration using low dose protocol. This study was performed with techniques to keep radiation doses as low as reasonably achievable, (ALARA). Individualized dose reduction techniques using automated exposure control or adjustment of mA and/or kV according to the patient's size were employed. No acute lung disease is present. There is a 13 mm density in the left lower lobe best seen on image #54 of series 3, stable. There is minimal scarring in the right upper lobe, also stable. No new pulmonary nodule is identified. No pleural or pericardial effusion is seen. No adenopathy is present. Multiple healing rib fractures are identified on the left side, which are new since the prior exam. IMPRESSION: 1. No suspicious nodule is identified. 2. Multiple healing left rib fractures are present, new since the prior exam. LUNG RADS CATEGORY 2 RECOMMENDATION: 12 month LDCT follow up Reviewed, Interpreted and Dictated by Jim Jernigan MD Transcribed by Debbie Smith Authenticated and [facility]
== END 2025-03-21 23:59 | disposition home or self-care (01) ==
LOC: RAD 07:13
PROVIDERS: PCP Physician Assistant; Visit Provider Physician Assistant
DX: S22.42XA Multiple fractures of ribs, left side, initial encounter for closed fracture (principal); F17.200 Nicotine dependence, unspecified, uncomplicated
CPT/HCPCS: 71271

== ENCOUNTER 2025-08-06 10:07 | Outpatient (CLI) | payer OTHER, SELFPAY ==
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
--- OUTSIDE RECORDS SUMMARY | 2025-08-06 10:10 | XMS_ITS | Data Portability ---
Author Organization [facility] [place] [facility] [place] Address [address] [place] [address] Assessment No assessment recorded. Plan of Treatment Reminders Order Date Submit Date Provider Last Modified By Organization Details Last Modified Time Details Appointments FOLLOW UP 30 2024 09:00A M Jenae Ellis PA-C Not available Not available Not available Lab HbA1c (hemoglob in A1c), blood [address], [address] [place], [address], 07/10/2025 09:08:36 microalbu min/creat inine, mass ratio, urine [address], [address] [place], [address], 07/10/2025 09:08:36 lipid panel, serum 2024 AICHA [facility] ([place]), [address] [facility], [place], [address], 07/13/2025 12:08:52 CMP, serum or plasma 2024 025 AICHA [facility] ([place]), [address] [facility], [place], [address], 07/13/2025 12:08:51 CBC w/ auto diff 2024 025 [facility] ([place]), [address] [place], [address], 07/13/2025 12:08:50 vitamin D, 25-hydrox y, total, serum 2024 025 [facility] ([place]), [address] [place], [address], 07/13/2025 12:08:55 TSH, ultra-sen sitive, serum 2024 025 [facility] ([place]), [address] [place], [address], 07/13/2025 12:08:54 iron + TIBC + ferritin, serum 2024 025 [facility] ([place]), [address] [place], [address], 07/13/2025 12:08:50 unlisted lab - toxassure flex 19, [id number] -P 2024 025 [facility] ([place]), [address] [place], [address], 07/13/2025 12:08:49 Hepatitis C IgG Ab, qual, serum 2024 025 [facility] ([place]), [address] [place], [address], 07/13/2025 12:08:53 HIV 1 + 2, meaningfu l use set 2024 025 [facility] ([place]), [address] [place], [address], 07/13/2025 12:08:55 measles + mumps + rubella virus IgG panel, QN, serum or plasma 2024 025 [facility] ([place]), [address] [place], [address], 05/08/2025 08:12:54 Referral hand surgeon referral 2024 025 [facility], [address], [address], [place], [address], 02/27/2025 10:33:47 Procedures None recorded. Surgeries None recorded. Imaging LDCT, chest, for lung cancer screening 2024 025 [facility] ([facility]), [address], [place], [address], 03/26/2025 13:52:42 Medication Orders levofloxa rosemarie 500 mg tablet 2024 025 [place] [id number], [address] [facility] [address] , [place], [place], [id number], 05/21/2025 05:01:51 ondansetr on 8 mg disintegr ating tablet 2024 025 [place] [id number], [address], [place], [place], [id number], 05/24/2025 05:01:11 Patient TargetsNo targets recorded. Patient Instructions Encounter Date Encounter Id Patient Instructions Last Modified By Organization Details Last Modified Time 03/06/2025 [id number] arthritis: care instructions [email or web address] Not available 03/06/2025 17:37:03 deciding about using medicines to quit smoking [email or web address] Not available 03/06/2025 17:26:58 Quitting Tobacco : Care Instructions Not available 03/06/2025 17:26:58 high blood pressure: care instructions [email or web address] Not available 03/06/2025 17:37:03 learning about high blood pressure [email or web address] Not available 03/06/2025 17:37:03 learning about mood disorders [email or web address] Not available 03/06/2025 17:37:03 attention defici t hyperactivity disorder (ADHD) in adults: care instructions [email or web address] Not available 03/06/2025 17:37:03 07/10/2025 [id number] learning about type 2 diabetes [email or web address] Not available 07/10/2025 09:08:36 type 2 diabetes: care instructions [email or web address] Not available 07/10/2025 09:08:36 HIV testing: car e instructions [email or web address] Not available 07/10/2025 09:08:36 Reason for Referral Hand Surgeon Referral for No dule on finger Referring Physician: Jenae Ellis, Family Medicine, Encounter Date: 02/13/2025 Results Created Date Observation Date Name Description Value Unit Range Abnormal Flag Note LastModifiedBy Organization Detail LastModifiedTime 05/07/2005/08/2025 MEASL ES/MU MPS/R UBELL A IMMUN ITY rubella antibodies, IgG 1.84 index immune >0.99 Non-i mmune <0.90 Equiv ocal 0.90 - 0.99 Immun e >0.99 Not Available [facility] ([facility]) [address] [facility], [place], [address], 05/08/2025 08:12:54 05/07/2005/08/2025 MEASL ES/MU MPS/R UBELL A IMMUN ITY measles antibodies, IgG <13.5 AU/mL immune >16.4 below low normal Negat alicia <13.5 Equiv ocal 13.5 - 16.4 Posit alicia >16.4 Prese nce of antib odies to Rubeo la is presu mptiv e evide nce of immun ity excep t when acute infec tion is suspe cted. Not Available [facility] ([facility]) [address] [facility], [place], [address], 05/08/2025 08:12:54 05/07/2005/08/2025 MEASL ES/MU MPS/R UBELL A IMMUN ITY mumps abs, IgG <9.0 AU/mL immune >10.9 below low normal Negat alicia <9.0 Equiv ocal 9.0 - 10.9 Posit alicia >10.9 A posit alicia resul t gener ally indic ates past expos ure to Mumps virus or previ ous vacci natio n. Not Available [facility] ([facility]) [address], [place], [address], 05/08/2025 08:12:54 07/10/20 25 07/13/2025 TOXAS SURE FLEX 19, UR summary report FINAL ===== ===== ===== ===== ===== ===== ===== ===== ===== ===== ===== ===== ===== === Amphe tamin es, MS, Ur RFX ToxAs sure Flex 19, Ur ===== ===== ===== ===== ===== ===== ===== ===== ===== ===== ===== ===== ===== === Test Resul t Flag Units Drug Prese nt Amphe tamin e 1275 ng/mg creat Amphe tamin e is avail able as a sched ule II presc ripti on drug. ===== ===== ===== ===== ===== ===== ===== ===== ===== ===== ===== ===== ===== === Test Resul t Flag Units Ref Range Creat inine 52 mg/dL >=20 ===== ===== ===== ===== ===== ===== ===== ===== ===== ===== ===== ===== ===== === Decla red Medic ation s: Medic ation list was not provi ded. ===== ===== ===== ===== ===== ===== ===== ===== ===== ===== ===== ===== ===== === For clini hipolito consu ltati on, pleas e call . ===== ===== ===== ===== ===== ===== ===== ===== ===== ===== ===== ===== ===== === Not Available [facility] ([facility]) [address] [place], [address], 07/13/2025 12:08:48 07/10/2007/13/2025 TOXAS SURE FLEX 19, UR pdf . Not Available [facility] ([facility]) [address] [place], [address], 07/13/2025 12:08:48 07/10/2007/13/2025 TOXAS SURE FLEX 19, UR creatinine 52 mg/dL >=20 REFER ENCE RANGE : Ref Range >=20 Not Available [facility] ([facility]) [address] [facility], [place], [address], 07/13/2025 12:08:48 07/10/2007/13/2025 TOXAS SURE FLEX 19, UR amphetamines ia COMMEN T NG/mL cutoff :300 Furth er testi ng indic ated Not Available [facility] ([facility]) [address] [place], [address], 07/13/2025 12:08:48 07/10/2007/13/2025 TOXAS SURE FLEX 19, UR benzodiazepi nadiya Negati ve Not Available [facility] ([facility]) [address] [place], [address], 07/13/2025 12:08:48 07/10/2007/13/2025 TOXAS SURE FLEX 19, UR diazepam Not Detect ed NG/mg _crea t Not Available [facility] ([facility]) [address] [place], [address], 07/13/2025 12:08:48 07/10/2007/13/2025 TOXAS SURE FLEX 19, UR desmethyldia zepam Not Detect ed NG/mg _crea t Not Available [facility] ([facility]) [address] [facility], [place], [address], 07/13/2025 12:08:48 07/10/2007/13/2025 TOXAS SURE FLEX 19, UR oxazepam Not Detect ed NG/mg _crea t Not Available [facility] ([facility]) [address] [facility], [place], [address], 07/13/2025 12:08:48 07/10/2007/13/2025 TOXAS SURE FLEX 19, UR temazepam Not Detect ed NG/mg _crea t Expec shade metab olism of benzo diaze pine class drugs : Paren t Drug Detec shade Metab olite s ----- ----- - ----- ----- ----- ----- Diaze adair: Desme thyld iazep am, Temaz epam, Oxaze adair Chlor diaze poxid e: Desme thyld iazep am, Oxaze adair Clora zepat e: Desme thyld iazep am, Oxaze adair Halaz epam: Desme thyld iazep am, Oxaze adair Temaz epam: Oxaze adair Oxaze adair: None Not Available [facility] ([facility]) [address] [facility], [place], [address], 07/13/2025 12:08:48 07/10/2007/13/2025 TOXAS SURE FLEX 19, UR alprazolam Not Detect ed NG/mg _crea t Not Available [facility] ([facility]) [address] [place], [address], 07/13/2025 12:08:48 07/10/2007/13/2025 TOXAS SURE FLEX 19, UR alpha-hydrox yalprazolam Not Detect ed NG/mg _crea t Not Available [facility] ([facility]) [address] [place], [address], 07/13/2025 12:08:48 07/10/2007/13/2025 TOXAS SURE FLEX 19, UR desalkylflur azepam Not Detect ed NG/mg _crea t Not Available [facility] ([facility]) [address] [place], [address], 07/13/2025 12:08:48 07/10/2007/13/2025 TOXAS SURE FLEX 19, UR lorazepam Not Detect ed NG/mg _crea t Not Available [facility] ([facility]) [address] [place], [address], 07/13/2025 12:08:48 07/10/2007/13/2025 TOXAS SURE FLEX 19, UR alpha-hydrox ytriazolam Not Detect ed NG/mg _crea t Not Available [facility] ([facility]) [address] [place], [address], 07/13/2025 12:08:48 07/10/2007/13/2025 TOXAS SURE FLEX 19, UR clonazepam Not Detect ed NG/mg _crea t Not Available [facility] ([facility]) [address] [place], [address], 07/13/2025 12:08:48 07/10/2007/13/2025 TOXAS SURE FLEX 19, UR 7-aminoclona zepam Not Detect ed NG/mg _crea t Not Available [facility] ([facility]) [address] [place], [address], 07/13/2025 12:08:48 07/10/2007/13/2025 TOXAS SURE FLEX 19, UR midazolam Not Detect ed NG/mg _crea t Not Available [facility] ([facility]) [address] [place], [address], 07/13/2025 12:08:48 07/10/2007/13/2025 TOXAS SURE FLEX 19, UR alpha-hydrox ymidazolam Not Detect ed NG/mg _crea t Not Available [facility] ([facility]) [address] [place], [address], 07/13/2025 12:08:48 07/10/2007/13/2025 TOXAS SURE FLEX 19, UR flunitrazepa m Not Detect ed NG/mg _crea t Not Available [facility] ([facility]) [address] [place], [address], 07/13/2025 12:08:48 07/10/2007/13/2025 TOXAS SURE FLEX 19, UR desmethylflu nitrazepam Not Detect ed NG/mg _crea t Not Available [facility] ([facility]) [address] [place], [address], 07/13/2025 12:08:48 07/10/2007/13/2025 TOXAS SURE FLEX 19, UR cocaine metabolite ia Negati ve NG/mL cutoff :150 Not Available [facility] ([facility]) [address] [place], [address], 07/13/2025 12:08:48 07/10/2007/13/2025 TOXAS SURE FLEX 19, UR ethanol biomarkers ia Negati ve NG/mL cutoff :500 Not Available [facility] ([facility]) [address] [place], [address], 07/13/2025 12:08:48 07/10/2007/13/2025 TOXAS SURE FLEX 19, UR cannabinoids ia Negati ve NG/mL cutoff :20 Not Available [facility] ([facility]) [address] [place], [address], 07/13/2025 12:08:48 07/10/20 25 07/13/2025 TOXAS SURE FLEX 19, UR 6-acetylmorp john ia Negati ve NG/mL cutoff :10 Not Available [facility] ([facility]) [address] [place], [address], 07/13/2025 12:08:48 07/10/20 25 07/13/2025 TOXAS SURE FLEX 19, UR opiate class ia Negati ve NG/mL cutoff :100 Not Available [facility] ([facility]) [address] [place], [address], 07/13/2025 12:08:48 07/10/2007/13/2025 TOXAS SURE FLEX 19, UR oxycodone class ia Negati ve NG/mL cutoff :100 Not Available [facility] ([facility]) [address] [place], [address], 07/13/2025 12:08:48 07/10/20 25 07/13/2025 TOXAS SURE FLEX 19, UR methadone ia Negati ve NG/mL cutoff :100 Not Available [facility] ([facility]) [address] [place] [address], [address], 07/13/2025 12:08:48 07/10/20 25 07/13/2025 TOXAS SURE FLEX 19, UR methadone mtb ia Negati ve NG/mL cutoff :100 Not Available [facility] ([facility]) [address] [place] [address], [address], 07/13/2025 12:08:48 07/10/2007/13/2025 TOXAS SURE FLEX 19, UR buprenorphin e ia Negati ve NG/mL cutoff :5.0 Not Available [facility] ([facility]) [address] [place] [address], [address], 07/13/2025 12:08:48 07/10/20 25 07/13/2025 TOXAS SURE FLEX 19, UR fentanyl ia Negati ve NG/mL cutoff :2.0 Not Available [facility] ([facility]) [address] [place], [address], 07/13/2025 12:08:48 07/10/2007/13/2025 TOXAS SURE FLEX 19, UR tapentadol ia Negati ve NG/mL cutoff :200 Not Available [facility] ([facility]) [address] [place], [address], 07/13/2025 12:08:48 07/10/20 25 07/13/2025 TOXAS SURE FLEX 19, UR propoxyphene ia Negati ve NG/mL cutoff :300 Not Available [facility] ([facility]) [address] [place], [address], 07/13/2025 12:08:48 07/10/20 25 07/13/2025 TOXAS SURE FLEX 19, UR tramadol ia Negati ve NG/mL cutoff :200 Not Available [facility] ([facility]) [address] [place], [address], 07/13/2025 12:08:48 07/10/20 25 07/13/2025 TOXAS SURE FLEX 19, UR methylphenid ate ia Negati ve NG/mL cutoff :100 Not Available [facility] ([facility]) [address] [place], [address], 07/13/2025 12:08:48 07/10/20 25 07/13/2025 TOXAS SURE FLEX 19, UR barbiturates ia Negati ve NG/mL cutoff :200 Not Available [facility] ([facility]) [address] [place] [address], [address], 07/13/2025 12:08:48 07/10/20 25 07/13/2025 TOXAS SURE FLEX 19, UR phencyclidin e ia Negati ve NG/mL cutoff :25 Not Available [facility] ([facility]) [address] [place], [address], 07/13/2025 12:08:48 07/10/2007/13/2025 TOXAS SURE FLEX 19, UR gabapentin ia Negati ve ug/mL cutoff :1.0 Not Available [facility] ([facility]) [address] [place], [address], 07/13/2025 12:08:48 07/10/2007/13/2025 TOXAS SURE FLEX 19, UR anticonvulsa nts Negati ve Not Available [facility] ([facility]) [address] [place], [address], 07/13/2025 12:08:48 07/10/2007/13/2025 TOXAS SURE FLEX 19, UR pregabalin Not Detect ed Not Available [facility] ([facility]) [address] [place], [address], 07/13/2025 12:08:48 07/10/2007/13/2025 TOXAS SURE FLEX 19, UR carisoprodol ia Negati ve NG/mL cutoff :100 Not Available [facility] ([facility]) [address] [facility], [place], [address], 07/13/2025 12:08:48 07/10/2007/11/2025 FE+TI BC+FE R iron bind.cap.(TI BC) 321 ug/dL 250-45 0 normal Not Available [facility] ([facility]) [address] [place], [address], 07/13/2025 12:08:49 07/10/2007/11/2025 FE+TI BC+FE R UIBC 277 ug/dL 131-42 5 normal Not Available [facility] ([facility]) [address] [place], [address], 07/13/2025 12:08:49 07/10/2007/11/2025 FE+TI BC+FE R iron 44 ug/dL 27-159 normal Not Available [facility] ([facility]) [address] [place], [address], 07/13/2025 12:08:49 07/10/2007/11/2025 FE+TI BC+FE R iron saturation 14 % 15-55 below low normal Not Available [facility] ([facility]) [address] [place], [address], 07/13/2025 12:08:49 07/10/2007/11/2025 FE+TI BC+FE R ferritin 22 NG/mL 15-150 normal Not Available [facility] ([facility]) [address] [place], [address], 07/13/2025 12:08:49 07/10/2007/11/2025 CBC WITH DIFFE RENTI AL/PL ATELE T WBC 6.8 x10e3 /uL 3.4-10 .8 normal Not Available [facility] ([facility]) [address] [place], [address], 07/13/2025 12:08:50 07/10/2007/11/2025 CBC WITH DIFFE RENTI AL/PL ATELE T RBC 4.20 x10e6 /uL 3.77-5 .28 normal Not Available [facility] ([facility]) [address] [place], [address], 07/13/2025 12:08:50 07/10/2007/11/2025 CBC WITH DIFFE RENTI AL/PL ATELE T hemoglobin 11.9 g/dL 11.1-1 5.9 normal Not Available [facility] ([facility]) [address] [place], [address], 07/13/2025 12:08:50 07/10/20 25 07/11/2025 CBC WITH DIFFE RENTI AL/PL ATELE T hematocrit 37.8 % 34.0-4 6.6 normal Not Available [facility] ([facility]) [address] [place], [address], 07/13/2025 12:08:50 07/10/20 25 07/11/2025 CBC WITH DIFFE RENTI AL/PL ATELE T MCV 90 fL 79-97 normal Not Available [facility] ([facility]) [address] [facility], [place], [address], 07/13/2025 12:08:50 07/10/2007/11/2025 CBC WITH DIFFE RENTI AL/PL ATELE T MCH 28.3 pg 26.6-3 3.0 normal Not Available [facility] ([facility]) [address] [facility], [place], [address], 07/13/2025 12:08:50 07/10/2007/11/2025 CBC WITH DIFFE RENTI AL/PL ATELE T MCHC 31.5 g/dL 31.5-3 5.7 normal Not Available [facility] ([facility]) [address] [place], [address], 07/13/2025 12:08:50 07/10/20 25 07/11/2025 CBC WITH DIFFE RENTI AL/PL ATELE T RDW 12.6 % 11.7-1 5.4 Not Available [facility] ([facility]) [address] [place], [address], 07/13/2025 12:08:50 07/10/2007/11/2025 CBC WITH DIFFE RENTI AL/PL ATELE T platelets 230 x10e3 /uL 150-45 0 normal Not Available [facility] ([facility]) [address] [place], [address], 07/13/2025 12:08:50 07/10/20 25 07/11/2025 CBC WITH DIFFE RENTI AL/PL ATELE T neutrophils 77 % not estab. normal Not Available [facility] ([facility]) [address] [facility], [place], [address], 07/13/2025 12:08:50 07/10/2007/11/2025 CBC WITH DIFFE RENTI AL/PL ATELE T lymphs 14 % not estab. normal Not Available [facility] ([facility]) [address] [facility], [place], [address], 07/13/2025 12:08:50 07/10/2007/11/2025 CBC WITH DIFFE RENTI AL/PL ATELE T monocytes 7 % not estab. normal Not Available [facility] ([facility]) [address] [facility], [place], [address], 07/13/2025 12:08:50 07/10/2007/11/2025 CBC WITH DIFFE RENTI AL/PL ATELE T eos 2 % not estab. normal Not Available [facility] ([facility]) [address] [facility], [place], [address], 07/13/2025 12:08:50 07/10/2007/11/2025 CBC WITH DIFFE RENTI AL/PL ATELE T basos 0 % not estab. 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 0 normal Not Available [facility] ([facility]) [address] [place], [address], 07/13/2025 12:08:50 07/10/20 25 07/11/2025 CBC WITH DIFFE RENTI AL/PL ATELE T lymphs (absolute) 1.0 x10e3 /uL 0.7-3. 1 normal Not Available [facility] ([facility]) [address] [facility], [place], [address], 07/13/2025 12:08:50 07/10/2007/11/2025 CBC WITH DIFFE RENTI AL/PL ATELE T monocytes(ab solute) 0.5 x10e3 /uL 0.1-0. 9 normal Not Available [facility] ([facility]) [address] [facility], [place], [address], 07/13/2025 12:08:50 07/10/20 25 07/11/2025 CBC WITH DIFFE RENTI AL/PL ATELE T eos (absolute) 0.2 x10e3 /uL 0.0-0. 4 normal Not Available [facility] ([facility]) [address] [facility], [place], [address], 07/13/2025 12:08:50 07/10/20 25 07/11/2025 CBC WITH DIFFE RENTI AL/PL ATELE T baso (absolute) 0.0 x10e3 /uL 0.0-0. 2 normal Not Available [facility] ([facility]) [address] [facility], [place], [address], 07/13/2025 12:08:50 07/10/20 25 07/11/2025 CBC WITH DIFFE RENTI AL/PL ATELE T immature granulocytes 0 % not estab. Not Available [facility] ([facility]) [address] [place], [address], 07/13/2025 12:08:50 07/10/20 25 07/11/2025 CBC WITH DIFFE RENTI AL/PL ATELE T immature grans (abs) 0.0 x10e3 /uL 0.0-0. 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 METAB OLIC PANEL (14) glucose 77 mg/dL 70-99 normal Not Available [facility] ([facility]) [address] [place], [address], 07/13/2025 12:08:51 07/10/2007/11/2025 COMP. METAB OLIC PANEL (14) BUN 28 mg/dL 6-24 above high normal Not Available [facility] ([facility]) [address] [facility] [place], [address], 07/13/2025 12:08:51 07/10/2007/11/2025 COMP. METAB OLIC PANEL (14) creatinine 0.75 mg/dL 0.57-1 .00 normal Not Available [facility] ([facility]) [address] [facility] [place], [address], 07/13/2025 12:08:51 07/10/2007/11/2025 COMP. METAB OLIC PANEL (14) eGFR 95 mL/mi n/1.7 3 >59 normal Not Available [facility] ([facility]) [address] [facility], [place], [address], 07/13/2025 12:08:51 07/10/2007/11/2025 COMP. METAB OLIC PANEL (14) BUN/creatini ne ratio 37 9-23 above high normal Not Available [facility] ([facility]) [address] [facility], [place], [address], 07/13/2025 12:08:51 07/10/2007/11/2025 COMP. METAB OLIC PANEL (14) sodium 140 mmol/ L 134-14 4 normal Not Available [facility] ([facility]) [address] [facility] [place], [address], 07/13/2025 12:08:51 07/10/2007/11/2025 COMP. METAB OLIC PANEL (14) potassium 4.2 mmol/ L 3.5-5. 2 normal Not Available [facility] ([facility]) [address] [facility], [place], [address], 07/13/2025 12:08:51 07/10/2007/11/2025 COMP. METAB OLIC PANEL (14) chloride 101 mmol/ L 96-106 normal Not Available [facility] ([facility]) [address] [facility], [place], [address], 07/13/2025 12:08:51 07/10/2007/11/2025 COMP. METAB OLIC PANEL (14) carbon dioxide, total 23 mmol/ L 20-29 normal Not Available [facility] ([facility]) [address] [place], [address], 07/13/2025 12:08:51 07/10/2007/11/2025 COMP. METAB OLIC PANEL (14) calcium 9.2 mg/dL 8.7-10 .2 normal Not Available [facility] ([facility]) [address] [place], [address], 07/13/2025 12:08:51 07/10/2007/11/2025 COMP. METAB OLIC PANEL (14) protein, total 6.4 g/dL 6.0-8. 5 normal Not Available [facility] ([facility]) [address] [facility] [place], [address], 07/13/2025 12:08:51 07/10/2007/11/2025 COMP. METAB OLIC PANEL (14) albumin 3.9 g/dL 3.8-4. 9 normal Not Available [facility] ([facility]) [address] [facility] [place], [address], 07/13/2025 12:08:51 07/10/2007/11/2025 COMP. METAB OLIC PANEL (14) globulin, total 2.5 g/dL 1.5-4. 5 Not Available [facility] ([facility]) [address] [facility] [place], [address], 07/13/2025 12:08:51 07/10/2007/11/2025 COMP. METAB OLIC PANEL (14) bilirubin, total 0.3 mg/dL 0.0-1. 2 normal Not Available [facility] ([facility]) [address] [facility] [place], [address], 07/13/2025 12:08:51 07/10/2007/11/2025 COMP. METAB OLIC PANEL (14) alkaline phosphatase 101 IU/L 49-135 normal Not Available [facility] ([facility]) [address] [place], [address], 07/13/2025 12:08:51 07/10/2007/11/2025 COMP. METAB OLIC PANEL (14) AST (SGOT) 24 IU/L 0-40 normal Not Available [facility] ([facility]) [address] [facility] [place], [address], 07/13/2025 12:08:51 07/10/2007/11/2025 COMP. METAB OLIC PANEL (14) ALT (SGPT) 34 IU/L 0-32 above high normal Not Available [facility] ([facility]) [address] [facility], [place], [address], 07/13/2025 12:08:51 07/10/2007/11/2025 LIPID PANEL cholesterol, total 137 mg/dL 100-19 9 normal Not Available [facility] ([facility]) [address] [place], [address], 07/13/2025 12:08:52 07/10/2007/11/2025 LIPID PANEL triglyceride s 69 mg/dL 0-149 normal Not Available [facility] ([facility]) [address] [place], [address], 07/13/2025 12:08:52 07/10/2007/11/2025 LIPID PANEL HDL cholesterol 40 mg/dL >39 normal Not Available [facility] ([facility]) [address] [place], [address], 07/13/2025 12:08:52 07/10/2007/11/2025 LIPID PANEL VLDL cholesterol hipolito 14 mg/dL 5-40 Not Available [facility] ([facility]) [address] [facility], [place], [address], 07/13/2025 12:08:52 07/10/2007/11/2025 LIPID PANEL LDL chol calc ([facility]) 83 mg/dL 0-99 Not Available [facility] ([facility]) [address] [place], [address], 07/13/2025 12:08:52 07/10/2007/11/2025 LIPID PANEL LDL calc comment: [employer]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 Not Available [facility] ([facility]) [address] [place], [address], 07/13/2025 12:08:52 07/10/2007/13/2025 AMPHE TAMIN ES, MS, UR RFX amphetamines ++POSI TIVE++ abnormal Not Available [facility] ([facility]) [address] [place], [address], 07/13/2025 12:08:53 07/10/2007/13/2025 AMPHE TAMIN ES, MS, UR RFX methamphetam ine Not Detect ed NG/mg _crea t Not Available [facility] ([facility]) [address] [place], [address], 07/13/2025 12:08:53 07/10/2007/13/2025 AMPHE TAMIN ES, MS, UR RFX amphetamine 1275 NG/mg _crea t Not Available [facility] ([facility]) [address] [place], [address], 07/13/2025 12:08:53 07/10/2007/13/2025 AMPHE TAMIN ES, MS, UR RFX MDMA (ecstasy) Not Detect ed NG/mg _crea t Not Available [facility] ([facility]) [address] [place] [address], [address], 07/13/2025 12:08:53 07/10/2007/13/2025 AMPHE TAMIN ES, MS, UR RFX mda (ecstasy metabolite) Not Detect ed NG/mg _crea t Not Available [facility] ([facility]) [address] [place] [address], [address], 07/13/2025 12:08:53 07/10/2007/11/2025 HCV ANTIB MARIE CASCA DE(PC R/GEN O) HCV Ab Non Reacti ve non reacti ve Not Available [facility] ([facility]) [address] [place], [address], 07/13/2025 12:08:53 07/10/2007/11/2025 HCV ANTIB MARIE CASCA DE(PC R/GEN O) interpretati on: Commen t Not infec shade with HCV unles s early or acute infec tion is suspe cted (whic h may be delay ed in an immun ocomp romis ed indiv idual ), or other evide nce exist s to indic ate HCV infec tion. Not Available [facility] ([facility]) [address] [facility], [place], [address], 07/13/2025 12:08:53 07/10/2007/11/2025 TSH TSH 1.330 uIU/m L 0.450- 4.500 normal Not Available [facility] ([facility]) [address] [facility], [place], [address], 07/13/2025 12:08:54 07/10/2007/11/2025 VITAM IN D, 25-HY DROXY vitamin D, 25-hydroxy 147.0 NG/mL 30.0-1 00.0 above high normal Vitam in D defic iency has been defin ed by the Insti tute of Medic ine and an Endoc rine Socie ty pract ice guide line as a level of serum 25-OH vitam in D less than 20 ng/mL (1,2) . The Endoc rine Socie ty went on to furth er defin e vitam in D insuf ficie ncy as a level betwe en 21 and 29 ng/mL (2). 1. IOM (Inst itute of Medic ine). 2009. Dieta ry refer ence intak es for calci um and D. Radha khan DC: The Natio nal [facility] Press . 2. Qian moore MF, Gwen huitron [place], Wesley off-F errar i MCBRIDE, et al. Evalu ation , treat ment, and preve ntion of vitam in D defic iency : an Endoc rine Socie ty clini hipolito pract ice guide line. JCEM. 2010; 96(7) :1911 -30. Not Available [facility] ([facility]) [address] [facility], [place], [address], 07/13/2025 12:08:55 07/10/2007/11/2025 HIV AB/P2 4 AG WITH REFLE X HIV Ab/P24 Ag screen Non Reacti ve non reacti ve HIV Negat alicia HIV-1 /HIV- 2 antib odies and HIV-1 p24 antig en were NOT detec shade. There is no labor atory evide nce of HIV infec tion. Not Available [facility] ([facility]) [address], [place], [address], 07/13/2025 12:08:55 07/10/2007/10/2025 micro album in/cr eatin ine, mass ratio , urine Microalbumin 10 mg/L Not Available [facility] [address] [place], [address], 07/10/2025 08:27:49 07/10/2007/10/2025 micro album in/cr eatin ine, mass ratio , urine Creatinine 50 mg/dL Not Available [facility] [address] [place] [address], [address], 07/10/2025 08:27:49 07/10/20 25 07/10/2025 micro album in/cr eatin ine, mass ratio , urine Ratio 30-300 mg/g Not Available [facility] [address] [place] [address], [address], 07/10/2025 08:27:49 07/10/2007/10/2025 HbA1c (hemo globi n A1c), blood HbA1c 5.2 % Not Available [facility] [address] [place] [address], [address], 07/10/2025 08:27:42 02/03/20 25 01/23/2025 XR, chest , 2 view No observ ation record ed. [facility] (X-Ray) [address], [place], [address], 02/08/2025 09:48:39 02/03/20 25 01/19/2025 XR, ribs, unila teral , 2 view No observ ation record ed. [address] (X-Ray) [address], [place], [address], 02/08/2025 09:48:39 03/26/20 25 03/21/2025 LDCT, chest , for lung cance r scree marcela No observ ation record ed. [address] (Scheduling) [address], [place], [address], 03/26/2025 14:23:53 07/09/2005/21/2025 MAMMO , scree marcela, digit al, bilat eral No observ ation record ed. [email or web address] Not Available 07/09 13:52:33 Result Notes None recorded. Problems Name Problem SNOMED Code Status Onset Date Resolution Date Notes Provider Name and Address Organization Details Recorded Time Adult attention deficit hyperacti vity disorder 642570073 Active 2023 PELON Shin [address] [place] [address], [phone], [employer] 4 11:17:34 Attention deficit hyperacti vity disorder 759228046 Active 2023 PELON Shin [address] [place] [address], [address], [employer] 5 10:24:12 Type 2 diabetes mellitus without complicat ion 117747647 Active 2024 PELON Shin [address] [place] [address], [address], [employer] 5 09:33:55 Osteoarth ritis 664375843 Active 2024 PELON Shin [address] [place] [address], [address] [place] [address] 8, [employer] 5 09:34:01 Depressiv e disorder 11305289 Active 2024 PELON Shin [address] [place] [address], [address], [employer] 5 14:23:24 Paronychi a of finger 710174195 Completed 202402/13/2025 PELON Shin [address] [place] [address], [address] [place] [address] 8, [employer] 5 10:24:46 Essential hypertens ion 74175751 Active 2024 PELON Shin [address] [place] [address], [address] [place] [address], [employer] 5 10:24:25 Contusion of left chest wall 696604655150 [address]17 Completed 202402/13/2025 PELON Shin [address] [place] [address], [address] [place] [address], [employer] 10:24:22 Nodule on finger 067537107 Active [address] Ellis [address], [address] [place] [address], [employer] 5 10:24:37 Tobacco dependenc e syndrome 11084358 Active 2024 PELON Shin [address] [place] [address], [address] [place] [address], [employer] 17:26:43 Iron deficienc y anemia secondary to inadequat e dietary iron intake 141842644 Active 2024 PELON Shin [address] [place] [address], [address] [place] [address], [employer] 12:39:28 Problem Notes None recorded. Procedures Surgical History Date Name Laterality Status Provider Name and Address Organization Details Recorded Time 11/02/19 Diabetic Foot Screen completed PELON Shin [address] [place] [address], [address], [employer] 11/02/2024 12:31:17 01/20/20 24 Date of Last Pap Smear completed [employer] 12/28/2024 09:01:16 Breast Biopsy completed [employer] 07/06/2024 14:59:08 Caesarean Section completed [employer] 07/06/2024 14:59:08 Tonsillectomy completed [employer] 07/06/2024 14:59:08 Tubal Ligation completed [employer] 07/06/2024 14:59:08 Orthopedic Surgery completed [employer] 07/06/2024 14:59:08 Imaging Results None recorded. Procedure Notes None recorded. Medical Equipment None Reported. Allergies No known drug allergies Medications Name Sig Start Date Stop Date Status Note LastModified by Organization Details LastModified Time venlafaxi ne ER 75 mg capsule,e xtended release 24 hr TAKE 1 CAPSULE BY MOUTH DAILY FOR DEPRESSI ON active Not Available Not Available No t Available clindamyc in HCl 300 mg capsule TAKE 1 CAPSULE BY MOUTH THREE TIMES DAILY FOR 10 DAYS 07/06 completed Not Available Not Available Not Available atorvasta tin 10 mg tablet TAKE 1 TABLET BY MOUTH EVERY DAY AT BEDTIME FOR CHOLESTE ROL 2024 active Not Available Not Available Not Avai lable sulfameth oxazole 400 mg-trimet hoprim 80 mg tablet TAKE 1 TABLET BY MOUTH TWICE DAILY FOR 10 DAYS FOR HAND INFECTIO N 12/26 completed Not Available Not Available Not Available glipizide ER 10 mg tablet, extended release 24 hr TAKE 1 TABLET BY MOUTH EVERY DAY 2024 active Not Available Not Available Not Avai lable meloxicam 15 mg tablet TAKE 1 TABLET BY MOUTH DAILY 2024 active Not Available Not Available Not Avai lable ciproflox acin 500 mg tablet TAKE 1 TABLET BY MOUTH EVERY 12 HOURS FOR 10 DAYS 02/13 completed Not Available Not Available Not Available ondansetr on 8 mg disintegr ating tablet Place 1 tablet 3 times a day by translin gual route as needed for 10 days, for nausea/v omiting. 05/24 completed Not Available Not Available Not Available lisinopri l 20 mg-hydroc hlorothia zide 25 mg tablet TAKE 1 TABLET BY MOUTH EVERY DAY active Not Available Not Available No t Available aspirin 81 mg chewable tablet Chew 1 tablet every day by oral route. active Not Available Not Available No t Available clobetaso l 0.05 % topical ointment APPLY TOPICALL Y TO THE AFFECTED AREA TWICE DAILY 07/06 completed Not Available Not Available Not Available levofloxa rosemarie 500 mg tablet Take 1 tablet every 24 hours by oral route for 7 days. 05/21 completed Not Available Not Available Not Available methylpre dnisolone 4 mg tablets in a dose pack 07/06 completed Not Available Not Available Not Available clobetaso l 0.05 % scalp solution APPLY TOPICALL Y TO THE SCALP EVERY DAY active Not Available Not Available No t Available metformin ER 500 mg tablet,ex tended release 24 hr TAKE 2 TABLETS BY MOUTH EVERY DAY FOR DIABETES 07/06 completed Not Available Not Available Not Available amoxicill in 875 mg-potass ium clavulana te 125 mg tablet TAKE 1 TABLET BY MOUTH EVERY 12 HOURS FOR 10 DAYS 12/26 completed Not Available Not Available Not Available dextroamp hetamine- amphetami ne ER 25 mg 24hr capsule,e xtend release TAKE 1 CAPSULE BY MOUTH 2 TIMES A DAY active Not Available Not Available No t Available venlafaxi ne ER 75 mg tablet,ex tended release 24 hr TAKE 1 TABLET BY MOUTH DAILY 07/10 completed Not Available Not Available Not Available Venofer 200 mg iron/10 mL intraveno us solution Inject 200 mg every week by intraven ous route for 35 days, for 200 mg a week for 5 weeks. 2024 active manually faxed to [facility] Not Available Not Available Not Available Ozempic 2 mg/dose (8 mg/3 mL) subcutane ous pen injector INJECT 2MG SUBCUTAN EOUSLY ONCE A WEEK 12/12 completed Not Available Not Available Not Available Mounjaro 5 mg/0.5 mL subcutane ous pen injector ADMINIST ER 5 MG UNDER THE SKIN EVERY WEEK active Not Available Not Available No t Available Mounjaro 2.5 mg/0.5 mL subcutane ous pen injector ADMINIST ER 2.5 MG UNDER THE SKIN EVERY WEEK FOR DIABETES 12/12 completed Not Available Not Available Not Available Vitals Date Recorded Body height Body mass index (BMI) Body weight Oxygen saturation Oxygen saturation in Arterial blood by Pulse oximetry Heart rate Body temperature Systolic And Diastolic Provider Name and Address Organization Details Last Updated DateTime 5 175.26 cm 31.4 kg/m2 47006.7 4 g 99 % 99 % 54 /min 98.2 [degF] 112/74 mm[Hg] [employer] 5 08:38:58 Date Recorded Body height Body mass index (BMI) Body weight Body temperature Heart rate Oxygen saturation Oxygen saturation in Arterial blood by Pulse oximetry Systolic And Diastolic Provider Name and Address Organization Details Last Updated DateTime 5 175.26 cm 30.5 kg/m2 70016.1 3 g 98.3 [degF] 57 /min 99 % 99 % 116/75 mm[Hg] Jo Kapadia [employer] 5 17:02:10 Date Recorded Body height Body mass index (BMI) Body weight Oxygen saturation Oxygen saturation in Arterial blood by Pulse oximetry Heart rate Body temperature Systolic And Diastolic Provider Name and Address Organization Details Last Updated DateTime 5 175.26 cm 28.6 kg/m2 44116.1 3 g 98 % 98 % 57 /min 98.5 [degF] 107/70 mm[Hg] Brittani Sultana [employer] 5 14:50:39 Date Recorded Body height Body mass index (BMI) Body weight Oxygen saturation Oxygen saturation in Arterial blood by Pulse oximetry Heart rate Body temperature Systolic And Diastolic Provider Name and Address Organization Details Last Updated DateTime 5 175.26 cm 28.1 kg/m2 64509.7 1 g 99 % 99 % 60 /min 98.2 [degF] 120/66 mm[Hg] [employer] 5 08:38:28 Date Recorded Body height Body mass index (BMI) Body weight Oxygen saturation Oxygen saturation in Arterial blood by Pulse oximetry Heart rate Body temperature Systolic And Diastolic Provider Name and Address Organization Details Last Updated DateTime 175.26 cm 27.9 kg/m2 87507.5 2 g 99 % 99 % 48 /min 98.4 [degF] 134/82 mm[Hg] Felicia Davidson [employer] 08:23:49 Social History Question Answer Notes LastModified by Organizat ion Details LastModified Time Tobacco Smoking Status Former Smoker Felicia delatorre, [employer] 07/06/2024 14:59:08 Do You Have An Advance Directive? No Information not available 07/06/2024 Is Your Home Air Conditioned? Yes Information not available 07/06/2024 Do You Wear A Helmet When Biking? Yes Information not available 07/06/2024 Are You Blind Or Do You Have Difficulty Seeing? No Information not available 07/06/2024 What Is Your Level Of Caffeine Consumption? Occasional Information not available 07/10/2025 Are You A Caregiver? No Information not available 07/10/2025 What Type Of Clothes Separator Do You Use? None Information not available 07/06/2024 In The 14 Days Before Symptom Onset, Have You Had Close Contact With A Laboratory-confi rmed COVID-19 While That Case Was Ill? No Information not available 07/06/2024 In The 14 [...] Of Diet Are You Following? REGULAR Information not available 07/06/2024 What Is The Highest Grade Or Level Of School You Have Completed Or The Highest Degree You Have Received? [id number] Information not available 07/10/2025 Who Is Your Employer? [employer], [employer], [employer] Child Support Information not available 07/06/2024 How Many Days Of Moderate To Strenuous Exercise, Like A Brisk Walk, Did You Do In The Last 7 Days? 5 Information not available 07/06/2024 On Those Days That You Engage In Moderate To Strenuous Exercise, How Many Minutes, On Average, Do You Exercise? 30 Information not available 07/10/2025 Have There Been Any Changes To Your Family Or Social Situation? No Information not available 07/06/2024 When Did You Quit Smoking? 6-10yearssincelastc igarette Information not available 07/06/2024 Are There Any Guns Present In Your Home? Yes Information not available 07/06/2024 Which Of Your Hands Is Dominant? Right Information not available 07/06/2024 Do You Engage In Moderate/heavy Exercise (e.g. Brisk Walk, Jogging, Strength Training, Etc)? Yes Information not available 07/10/2025 How Many Times In The Past Year Have You Used An Illegal Drug Or Used A Prescription Medication For Nonmedical Reasons? 0 Information not available 07/10/2025 Where Do You Live? SingleLevelHouse Information not available 07/10/2025 Do You Have A Medical Power Of Resaw Operator? Yes Information not available 07/06/2024 What Was The Date Of Your Most Recent Tobacco Screening? 07/10/2025 Information not available 07/10/2025 Are There Any Occupational Health Risks Where You Work? No Information not available 07/06/2024 Do You Have Any Pets? Yes Information not available 07/06/2024 What Is Your Relationship Status? Information not available 07/06/2024 Have You Repeated Any Grades? No Information not available 07/06/2024 Do You Wear A Seatbelt When Driving Or As A Passenger? Yes Information not available 07/10/2025 Do You Use Your Seat Belt Or Car Seat Routinely? Yes Information not available 07/06/2024 Are You Sexually Active? No Information not available 07/06/2024 Do You Have Smoke And Carbon Monoxide Detectors In Your Home? Yes Information not available 07/06/2024 At What Age Did You Start Smoking Tobacco? 13 Information not available 07/06/2024 Are You Passively Exposed To Smoke? No Information not available 07/06/2024 Are There Any Smokers In [...] What Date Was Tobacco Cessation Counseling Provided? 07/10/2025 Information not available 07/10/2025 How Many Years Have You Smoked Tobacco? 33 Information not available 07/06/2024 Have You Recently Traveled Abroad? Yes Information not available 07/10/2025 Do You Have Difficulty Walking Or Climbing Stairs? No Information not available 07/06/2024 Are You Currently In School? No Information not available 07/06/2024 What Contraceptive Method Was Reported At Start Of This Visit? None Information not available 07/10/2025 Do You Feel Safe In Your Home? Yes Information not available 07/10/2025 Do You Have Any Dietary Restrictions? No Information not available 07/06/2024 What Is Your Reason For Having No Contraceptive Method At Start Of This Visit? Sterile For Non-contraceptive Reasons Information not available 07/10/2025 Sex: Female Functional Status Question Answer Note LastModified by Organizat ion Details LastModified Time Do you use any illicit or recreational drugs? No Information not available 07/06/2024 Do you feel safe in your relationship? Yes Information n ot available 07/10/2025 Do you or have you ever used any other forms of tobacco or nicotine? No Information not available 07/06/2024 What is your level of alcohol consumption? None Information not available 07/06/2024 Are you currently employed? Yes Information not available 07/06/2024 Do you have transportation difficulties? No Information not available 07/06/2024 Are you able to walk independently without assistance or assistive devices? YESWOREST Information not available 07/06/2024 Do you have difficulty doing errands alone? No Information not available 07/06/2024 Are you able to care for yourself independently? Yes Information not available 07/06/2024 Do you have difficulty dressing, bathing, grooming, or toileting? No Information not available 07/06/2024 What is your exercise level? Moderate Information not available 07/06/2024 Mental Status Question Answer Note LastModified by Organizat ion Details LastModified Time Do you feel stressed (tense, restless, nervous, or anxious, or unable to sleep at night)? [id number] Information not available 09/05/2024 Do you have difficulty concentrating, remembering or making decisions? No Information no t available 07/06/2024 Are you or have you been involved with bullying? No Information not available 07/06/2024 Family History Relationship Description Onset Age of this Age Resolved Age Notes LastModified by Organization Details LastModified Time Mother Malignant neoplasm of breast Not available 2023 14:59:07 Maternal Grandmother Arthritis Not available 06/27 14:59:07 Maternal Grandmother Heart disease Not available 2023 14:59:07 Maternal Grandmother Osteoporosis Not available 14:59:07 Maternal Grandmother Diabetes mellitus Not available 2023 14:59:07 Medical History Condition Response Coronary Artery Disease N Other N Gout N Kidney Stones N Blood Diseases N Hyperthyroidism N Blood Transfusion N Breast Cancer N Emergency room visit since last appointm ent. N COPD N Depression Y Dermatologic Disorders N Lung Disease N Hypothyroidism N Developmental or Behavioral Disorders N Defects [...] N High Cholesterol N Liver Disease N Psychiatric/Mental Health Condition N Organ Transplant N Fibromyalgia N Headaches N Schizophrenia N Dialysis N Kidney Disease N Allergies/Hayfever [...] Current Control Method Menopause Most Recent Mammogram Age at First Child 30 Obstetrics History GPAL:G 0 P 0 0 0 0 Immunizations Vaccine Type Date Status Note Provider Nam e and Address Organization Details Recorded Time Hep A, adult 05/14/2025 completed Felicia Vice null, [employer] 05/14/2025 08:59:56 MMR 05/14/2025 completed Felicia Vice null, [employer] 05/14/2025 08:59:56 Tdap 12/03/2024 completed Felicia Vice null, [employer] 12/26/2024 15:39:28 typhoid, oral 05/02/2025 completed Not Available [facility] 07/10/2025 08:16:07 Past Encounters Encounter ID Performer Location Encounter Start Date Encounter Closed Date Diagnosis/Indication Diagnosis SNOMED-CT Code Diagnosis ICD10 Code Diagnosis IMO Codes Diagnosis Note [id number] PELON Shin [facility] [address] [place] [address] 07/06/2024 14:51:53 07/06/2024 16:18:15 manager intermediate current use of drug therapy for attention deficit hyperactivity disorder 9257549362 86480 Z79.899 Adult atte ntion deficit hyperactivity disorder 258740200 F90.9 [facility] #[id number] Kaylee solaresCS A signed todayNote sent to Dr Huff to refill Adderall XR [id number] PELON Shin [address] [address] 09/05/2024 07:58:44 09/05/2024 08:34:02 Adult attention deficit hyperactivity disorder 420351418 F90.9 Adderall XR refilled by Dr Mckay in [facility] sure reviewed and appropriat e Body mass index 30+ - obesity 358617111 Z68.33 [id number] PELON Shin [address] [address] 11/02/2024 08:27:07 11/02/2024 09:33:45 Type 2 diabetes mellitus without complication 461685582 E11.9 Adult atte ntion deficit hyperactivity disorder 981892416 F90.9 Adderall XR refilled by Dr Mckay in [facility] sure reviewed and appropriat e Osteoarthritis 242285284 M19.90 Depressive disorder 3548 9007 F32.A Body mass index 30+ - obesity 989540570 Z68.33 [id number] PELON Shin [address] [address] 12/26/2024 15:16:43 12/26/2024 16:32:11 Paronychia of finger 405558960 L03.019 Requested culture from [facility] Adult atte ntion deficit hyperactivity disorder 911796719 F90.9 Adderall XR refilled by Dr Mckay in [facility] sure reviewed and appropriat e [id number] PELON Shin [address] [address] 02/13/2025 08:29:56 02/13/2025 09:02:21 Nodule on finger 856563128 R22.32 03562470 Cystic appearance - ? ganglion cyst [id number] PELON Shin [address] [address] 03/06/2025 16:53:33 03/06/2025 17:28:17 Tobacco dependence syndrome 98594757 F17.200 36701 Adult atte ntion deficit hyperactivity disorder 232541094 F90.9 Depressive disorder 3548 9007 F32.A Osteoarthritis 142953326 M19.90 Essential hypertension 56167622 I10 [id number] PELON Shin [address] [address] 05/07/2025 14:39:21 05/07/2025 15:24:46 Counseling 413118304 Z71.84 [id number] We have to order Havrix for her - will call her when we receive it [id number] PELON Shin [address] [address] 05/14/2025 08:31:57 05/14/2025 08:50:08 Viral hepatitis A vaccination given 5638469474 9105 Z23 0443022658 Requires m easles, mumps and rubella vaccination 956152106 Z23 551016 [id number] PELON Shin [address] [address] 07/10/2025 08:04:46 07/10/2025 09:37:52 Type 2 diabetes mellitus 71354408 E11.9 [id number] Long-term current use of drug therapy 222988212 Z79.899 73764584 History of anemia - iron deficient 326894182 Z86.2 700546 HIV screening 729505863 Z11.4 122194 Viral scre ening status 043857620 Z11.59 704773 Health Concerns Section Related Observation LastModified by Organization Detai ls LastModified Time None Recorded Concern Status LastModified by Organization Details LastModified Time None Recorded Advance Directives Directive N: Payers Insurance Date Sequence Insurance Name Policy Number Policy [place] Covered Member ID [place] Member ID Guarantor Name 07/07/2025 1 JEREMY [id number] Leslye Morrison [id number] Leslye Morrison Notes Date Note Type Note Provider Name and Address Organization Details Recorded Time 02/13/2025 text/html ROS as noted in the [facility] Nodule on left middle finger at the base of her finger. Started after cleaning out some brush row. Her arms were scratched but she does not recall any injury to that area. The nodule is firm, and non-tender. No redness or drainage. PELON Shin [address] [place], [id number], [employer] 02/13/2025 10:26:50 03/06/2025 text/html ROS as noted in the HPI Patient presents for followup. History of ADHD. [...] it is still present. PELON [address] [place], [id number], [employer] 03/06/2025 17:38:07 05/07/2025 text/html ROS as noted in the HPI Patient presents for followup.She is traveling to [facility] in May.Needs hepatitis A and MMR titres.Needs antibiotics for travelers diarrhea. PELON Shin [address] [place], [id number], [employer] 05/07/2025 16:51:02 05/14/2025 text/html ROS as noted in the [facility] Patient going on anniversary trip next month and needs Hepatitis A and MMR PELON [address] [place], [address], [employer] 05/14/2025 09:34:19 07/10/2025 text/html ROS as noted in the [facility] Patient presents for followup. History of ADHD. History of HTN, DM, OA, depression. She is due for refills. Recently returned from trip to the [facility]. History of iron deficiency anemia requiring iron infusions and would like to have labs drawn. PELON [address] [place], [address], [employer] 07/10/2025 13:04:14 OBGyn Episode No OBEpisode recorded.
--- OUTSIDE RECORDS SUMMARY | 2025-08-06 10:10 | XMS_ITS | Clinical Summary ---
Author Organization [facility] [place] [id number] Care Team Providers Care Land Development Manager Name Role Phone Unavailable Primary Care Provider [...] Zoster (1 of 2) 2020 COVID-19 Vaccine (1 - 2024-2 6 season) 2025 Influenza Vaccine (#1) 2025 Meningococcal B Vaccine Aged Out No l onger eligible based on patient's age to complete this topic
--- OUTSIDE RECORDS SUMMARY | 2025-08-06 10:10 | XMS_ITS | Continuity of Care Document ---
Author Organization [facility] Address [address] [place] [address] Assessment No assessment recorded. Plan of Treatment Reminders Order Date Submit Date Provider Last Modified By Organization Details Last Modified Time Details Appointments FOLLOW UP 30 2024 09:00A Roger Ellis PA-C Not available Not available Not available Lab HbA1c (hemoglob in A1c), blood [address], [address] [facility], [place], [address], 07/10/2025 09:08:36 microalbu min/creat inine, mass ratio, urine [address], [address] [facility], [place], [address], 07/10/2025 09:08:36 lipid panel, serum 2024 025 AICHA [facility] ([place]), [address] [place], [address], 07/13/2025 12:08:52 CMP, serum or plasma 2024 025 AICHA [facility] ([place]), [address] [facility], [place], [address], 07/13/2025 12:08:51 CBC w/ auto diff 2024 025 [facility] ([place]), [address] [place], [address], 07/13/2025 12:08:50 vitamin D, 25-hydrox y, total, serum 2024 025 [facility]), [address] [place], [address], 07/13/2025 12:08:55 TSH, ultra-sen sitive, serum 2024 025 [facility] ([place]), [address] [place], [address], 07/13/2025 12:08:54 iron + TIBC + ferritin, serum 2024 025 [facility]), [address] [place], [address], 07/13/2025 12:08:50 unlisted lab - toxassure flex 19, [id number] -[id number] 2024 025 [facility]), [address] [place], [address], 07/13/2025 12:08:49 Hepatitis C IgG Ab, qual, serum 2024 025 [facility]), [address] [place], [address], 07/13/2025 12:08:53 HIV 1 + 2, meaningfu l use set 2024 025 [facility]), [address] [place], [address], 07/13/2025 12:08:55 Referral None recorded. Procedures None recorded. Surgeries None recorded. Imaging None recorded. Medication Orders None recorded. Patient TargetsNo targets recorded. Patient Instructions Encounter Date Encounter Id Patient Instructions Last Modified By Organization Details Last Modified Time 07/10/2025 [id number] learning about type 2 diabetes Not available 07/10/2025 09:08:36 type 2 diabetes: care instructions [id number] Not available 07/10/2025 09:08:36 HIV testing: car e instructions Not available 07/10/2025 09:08:36 Reason for Referral None Reported. Results Created Date Observation Date Name Description Value Unit Range Abnormal Flag Note LastModifiedBy Organization Detail LastModifiedTime 07/10/20 25 07/13/2025 TOXAS SURE FLEX 19, [...] ===== ===== ===== === Not Available [facility] ([facility]) [address] [place], [address], 07/13/2025 12:08:48 07/10/2007/13/2025 TOXAS SURE FLEX 19, UR pdf . Not Available [facility] ([facility]) [address] [place], [address], 07/13/2025 12:08:48 07/10/2007/13/2025 TOXAS SURE FLEX 19, UR creatinine 52 mg/dL >=20 REFER ENCE RANGE : Ref Range >=20 Not Available [facility] ([facility]) [address] [facility], [place], [address], 07/13/2025 12:08:48 07/10/2007/13/2025 TOXAS SURE FLEX 19, UR amphetamines ia COMMEN T NG/mL cutoff :300 Furth er testi ng indic ated Not Available [facility] ([facility]) [address] [place], [address], 07/13/2025 12:08:48 07/10/2007/13/2025 TOXAS SURE FLEX 19, UR benzodiazepi nadiya Negati ve Not Available [facility] ([facility]) [address] [place], [address], 07/13/2025 12:08:48 07/10/2007/13/2025 TOXAS SURE FLEX 19, UR diazepam Not Detect ed NG/mg _crea t Not Available [facility] ([facility]) [address] [place], [address], 07/13/2025 12:08:48 07/10/2007/13/2025 TOXAS SURE FLEX 19, UR desmethyldia zepam Not Detect ed NG/mg _crea t Not Available [facility] ([facility]) [address] [facility], [place], [address], 07/13/2025 12:08:48 07/10/2007/13/2025 TOXAS SURE FLEX 19, UR oxazepam Not Detect ed NG/mg _crea t Not Available [facility] ([facility]) [address] [place], [address], 07/13/2025 12:08:48 07/10/2007/13/2025 TOXAS SURE FLEX 19, [...] adair Oxaze adair: None Not Available [facility] ([facility]) [address] [place], [address], 07/13/2025 12:08:48 07/10/2007/13/2025 TOXAS SURE FLEX 19, UR alprazolam Not Detect ed NG/mg _crea t Not Available [facility] ([facility]) [address] [place], [address], 07/13/2025 12:08:48 07/10/2007/13/2025 TOXAS SURE FLEX 19, UR alpha-hydrox yalprazolam Not Detect ed NG/mg _crea t Not Available [facility] ([facility]) [address] [place], [address], 07/13/2025 12:08:48 07/10/2007/13/2025 TOXAS SURE FLEX 19, UR desalkylflur azepam Not Detect ed NG/mg _crea t Not Available [facility] ([facility]) [address] [place], [address], 07/13/2025 12:08:48 07/10/2007/13/2025 TOXAS SURE FLEX 19, UR lorazepam Not Detect ed NG/mg _crea t Not Available [facility] ([facility]) [address] [place], [address], 07/13/2025 12:08:48 07/10/2007/13/2025 TOXAS SURE FLEX 19, UR alpha-hydrox ytriazolam Not Detect ed NG/mg _crea t Not Available [facility] ([facility]) [address] [place], [address], 07/13/2025 12:08:48 07/10/2007/13/2025 TOXAS SURE FLEX 19, UR clonazepam Not Detect ed NG/mg _crea t Not Available [facility] ([facility]) [address] [place], [address], 07/13/2025 12:08:48 07/10/2007/13/2025 TOXAS SURE FLEX 19, UR 7-aminoclona zepam Not Detect ed NG/mg _crea t Not Available [facility] ([facility]) [address] [place], [address], 07/13/2025 12:08:48 07/10/2007/13/2025 TOXAS SURE FLEX 19, UR midazolam Not Detect ed NG/mg _crea t Not Available [facility] ([facility]) [address] [place], [address], 07/13/2025 12:08:48 07/10/2007/13/2025 TOXAS SURE FLEX 19, UR alpha-hydrox ymidazolam Not Detect ed NG/mg _crea t Not Available [facility] ([facility]) [address] [place], [address], 07/13/2025 12:08:48 07/10/2007/13/2025 TOXAS SURE FLEX 19, UR flunitrazepa m Not Detect ed NG/mg _crea t Not Available [facility] ([facility]) [address] [place], [address], 07/13/2025 12:08:48 07/10/2007/13/2025 TOXAS SURE FLEX 19, UR desmethylflu nitrazepam Not Detect ed NG/mg _crea t Not Available [facility] ([facility]) [address] [place], [address], 07/13/2025 12:08:48 07/10/2007/13/2025 TOXAS SURE FLEX 19, UR cocaine metabolite ia Negati ve NG/mL cutoff :150 Not Available [facility] ([facility]) [address] [place], [address], 07/13/2025 12:08:48 07/10/2007/13/2025 TOXAS SURE FLEX 19, UR ethanol biomarkers ia Negati ve NG/mL cutoff :500 Not Available [facility] ([facility]) [address] [place] [address], [address], 07/13/2025 12:08:48 07/10/20 25 07/13/2025 TOXAS SURE FLEX 19, UR cannabinoids ia Negati ve NG/mL cutoff :20 Not Available [facility] ([facility]) [address] [place], [address], 07/13/2025 12:08:48 07/10/20 25 07/13/2025 TOXAS SURE FLEX 19, UR 6-acetylmorp john ia Negati ve NG/mL cutoff :10 Not Available [facility] ([facility]) [address] [place] [address], [address], 07/13/2025 12:08:48 07/10/20 25 07/13/2025 TOXAS SURE FLEX 19, UR opiate class ia Negati ve NG/mL cutoff :100 Not Available [facility] ([facility]) [address] [place], [address], 07/13/2025 12:08:48 07/10/20 25 07/13/2025 TOXAS SURE FLEX 19, UR oxycodone class ia Negati ve NG/mL cutoff :100 Not Available [facility] ([facility]) [address] [place], [address], 07/13/2025 12:08:48 07/10/20 25 07/13/2025 TOXAS SURE FLEX 19, UR methadone ia Negati ve NG/mL cutoff :100 Not Available [facility] ([facility]) [address] [place], [address], 07/13/2025 12:08:48 07/10/20 25 07/13/2025 TOXAS SURE FLEX 19, UR methadone mtb ia Negati ve NG/mL cutoff :100 Not Available [facility] ([facility]) [address] [place], [address], 07/13/2025 12:08:48 07/10/20 25 07/13/2025 TOXAS SURE FLEX 19, UR buprenorphin e ia Negati ve NG/mL cutoff :5.0 Not Available [facility] ([facility]) [address] [place], [address], 07/13/2025 12:08:48 07/10/2007/13/2025 TOXAS SURE FLEX 19, UR fentanyl ia Negati ve NG/mL cutoff :2.0 Not Available [facility] ([facility]) [address] [facility], [place], [address], 07/13/2025 12:08:48 07/10/2007/13/2025 TOXAS SURE FLEX 19, UR tapentadol ia Negati ve NG/mL cutoff :200 Not Available [facility] ([facility]) [address] [facility], [place], [address], 07/13/2025 12:08:48 07/10/2007/13/2025 TOXAS SURE FLEX 19, UR propoxyphene ia Negati ve NG/mL cutoff :300 Not Available [facility] ([facility]) [address] [facility], [place], [address], 07/13/2025 12:08:48 07/10/2007/13/2025 TOXAS SURE FLEX 19, UR tramadol ia Negati ve NG/mL cutoff :200 Not Available [facility] ([facility]) [address] [place], [address], 07/13/2025 12:08:48 07/10/2007/13/2025 TOXAS SURE FLEX 19, UR methylphenid ate ia Negati ve NG/mL cutoff :100 Not Available [facility] ([facility]) [address] [place], [address], 07/13/2025 12:08:48 07/10/2007/13/2025 TOXAS SURE FLEX 19, UR barbiturates ia Negati ve NG/mL cutoff :200 Not Available [facility] ([facility]) [address] [place] [address], [address], 07/13/2025 12:08:48 07/10/2007/13/2025 TOXAS SURE FLEX 19, UR phencyclidin e ia Negati ve NG/mL cutoff :25 Not Available [facility] ([facility]) [address] [place], [address], 07/13/2025 12:08:48 07/10/20 25 07/13/2025 TOXAS SURE FLEX 19, UR gabapentin ia Negati ve ug/mL cutoff :1.0 Not Available [facility] ([facility]) [address] [place], [address], 07/13/2025 12:08:48 07/10/2007/13/2025 TOXAS SURE FLEX 19, UR anticonvulsa nts Negati ve Not Available [facility] ([facility]) [address] [place], [address], 07/13/2025 12:08:48 07/10/2007/13/2025 TOXAS SURE FLEX 19, UR pregabalin Not Detect ed Not Available [facility] ([facility]) [address] [place], [address], 07/13/2025 12:08:48 07/10/2007/13/2025 TOXAS SURE FLEX 19, UR carisoprodol ia Negati ve NG/mL cutoff :100 Not Available [facility] ([facility]) [address] [place], [address], 07/13/2025 12:08:48 07/10/2007/11/2025 FE+TI BC+FE R iron bind.cap.(TI BC) 321 ug/dL 250-45 0 normal Not Available [facility] ([facility]) [address] [place], [address], 07/13/2025 12:08:49 07/10/20 25 07/11/2025 FE+TI BC+FE R UIBC 277 ug/dL 131-42 5 normal Not Available [facility] ([facility]) [address] [place], [address], 07/13/2025 12:08:49 07/10/2007/11/2025 FE+TI BC+FE R iron 44 ug/dL 27-159 normal Not Available [facility] ([facility]) [address] [place], [address], 07/13/2025 12:08:49 07/10/2007/11/2025 FE+TI BC+FE R iron saturation 14 % 15-55 below low normal Not Available [facility] ([facility]) [address] [place], [address], 07/13/2025 12:08:49 07/10/2007/11/2025 FE+TI BC+FE R ferritin 22 NG/mL 15-150 normal Not Available [facility] ([facility]) [address] [place], [address], 07/13/2025 12:08:49 07/10/2007/11/2025 CBC WITH DIFFE RENTI AL/PL ATELE T WBC 6.8 x10e3 /uL 3.4-10 .8 normal Not Available [facility] ([facility]) [address] [place], [address], 07/13/2025 12:08:50 07/10/2007/11/2025 CBC WITH DIFFE RENTI AL/PL ATELE T RBC 4.20 x10e6 /uL 3.77-5 .28 normal Not Available [facility] ([facility]) [address] [place], [address], 07/13/2025 12:08:50 07/10/2007/11/2025 CBC WITH DIFFE RENTI AL/PL ATELE T hemoglobin 11.9 g/dL 11.1-1 5.9 normal Not Available [facility] ([facility]) [address] [place], [address], 07/13/2025 12:08:50 07/10/2007/11/2025 CBC WITH DIFFE RENTI AL/PL ATELE T hematocrit 37.8 % 34.0-4 6.6 normal Not Available [facility] ([facility]) [address] [facility], [place], [address], 07/13/2025 12:08:50 07/10/2007/11/2025 CBC WITH DIFFE RENTI AL/PL ATELE T MCV 90 fL 79-97 normal Not Available [facility] ([facility]) [address] [place], [address], 07/13/2025 12:08:50 07/10/2007/11/2025 CBC WITH DIFFE RENTI AL/PL ATELE T MCH 28.3 pg 26.6-3 3.0 normal Not Available [facility] ([facility]) [address] [facility], [place], [address], 07/13/2025 12:08:50 07/10/2007/11/2025 CBC WITH DIFFE RENTI AL/PL ATELE T MCHC 31.5 g/dL 31.5-3 5.7 normal Not Available [facility] ([facility]) [address] [place], [address], 07/13/2025 12:08:50 07/10/2007/11/2025 CBC WITH DIFFE RENTI AL/PL ATELE T RDW 12.6 % 11.7-1 5.4 Not Available [facility] ([facility]) [address] [place], [address], 07/13/2025 12:08:50 07/10/2007/11/2025 CBC WITH DIFFE RENTI AL/PL ATELE T platelets 230 x10e3 /uL 150-45 0 normal Not Available [facility] ([facility]) [address] [place], [address], 07/13/2025 12:08:50 07/10/2007/11/2025 CBC WITH DIFFE RENTI AL/PL ATELE T neutrophils 77 % not estab. normal Not Available [facility] ([facility]) [address] [facility], [place], [address], 07/13/2025 12:08:50 07/10/2007/11/2025 CBC WITH DIFFE RENTI AL/PL ATELE T lymphs 14 % not estab. normal Not Available [facility] ([facility]) [address] [facility], [place], [address], 07/13/2025 12:08:50 07/10/2007/11/2025 CBC WITH DIFFE RENTI AL/PL ATELE T monocytes 7 % not estab. normal Not Available [facility] ([facility]) [address] [facility], [place], [address], 07/13/2025 12:08:50 07/10/2007/11/2025 CBC WITH DIFFE RENTI AL/PL ATELE T eos 2 % not estab. normal Not Available [facility] ([facility]) [address] [facility], [place], [address], 07/13/2025 12:08:50 07/10/2007/11/2025 CBC WITH DIFFE RENTI AL/PL ATELE T basos 0 % not estab. normal Not Available [facility] ([facility]) [address] [facility], [place], [address], 07/13/2025 12:08:50 07/10/2007/11/2025 CBC WITH DIFFE RENTI AL/PL ATELE T immature cells SKATES OPERATOR Not Available [facility] ([facility]) [address] [facility], [place], [address], 07/13/2025 12:08:50 07/10/2007/11/2025 CBC WITH DIFFE RENTI AL/PL ATELE T neutrophils (absolute) 5.2 x10e3 /uL 1.4-7. 0 normal Not Available [facility] ([facility]) [address] [place], [address], 07/13/2025 12:08:50 07/10/20 25 07/11/2025 CBC WITH DIFFE RENTI AL/PL ATELE T lymphs (absolute) 1.0 x10e3 /uL 0.7-3. 1 normal Not Available [facility] ([facility]) [address] [place], [address], 07/13/2025 12:08:50 07/10/2007/11/2025 CBC WITH DIFFE RENTI AL/PL ATELE T monocytes(ab solute) 0.5 x10e3 /uL 0.1-0. 9 normal Not Available [facility] ([facility]) [address] [place], [address], 07/13/2025 12:08:50 07/10/20 25 07/11/2025 CBC WITH DIFFE RENTI AL/PL ATELE T eos (absolute) 0.2 x10e3 /uL 0.0-0. 4 normal Not Available [facility] ([facility]) [address] [place], [address], 07/13/2025 12:08:50 07/10/20 25 07/11/2025 CBC WITH DIFFE RENTI AL/PL ATELE T baso (absolute) 0.0 x10e3 /uL 0.0-0. 2 normal Not Available [facility] ([facility]) [address] [place], [address], 07/13/2025 12:08:50 07/10/20 25 07/11/2025 CBC WITH DIFFE RENTI AL/PL ATELE T immature granulocytes 0 % not estab. Not Available [facility] ([facility]) [address] [place], [address], 07/13/2025 12:08:50 07/10/2007/11/2025 CBC WITH DIFFE RENTI AL/PL ATELE T immature grans (abs) 0.0 x10e3 /uL 0.0-0. 1 Not Available [facility] ([facility]) [address] [facility], [place], [address], 07/13/2025 12:08:50 07/10/2007/11/2025 CBC WITH DIFFE RENTI AL/PL ATELE T NRBC SKATES OPERATOR Not Available [facility] ([facility]) [address] [facility], [place], [address], 07/13/2025 12:08:50 07/10/2007/11/2025 CBC WITH DIFFE RENTI AL/PL ATELE T hematology comments: SKATES OPERATOR Not Available [facility] ([facility]) [address] [facility], [place], [address], 07/13/2025 12:08:50 07/10/2007/11/2025 COMP. METAB OLIC PANEL (14) glucose 77 mg/dL 70-99 normal Not Available [facility] ([facility]) [address] [facility], [place], [address], 07/13/2025 12:08:51 07/10/2007/11/2025 COMP. METAB OLIC PANEL (14) BUN 28 mg/dL 6-24 above high normal Not Available [facility] ([facility]) [address] [facility], [place], [address], 07/13/2025 12:08:51 07/10/2007/11/2025 COMP. METAB OLIC PANEL (14) creatinine 0.75 mg/dL 0.57-1 .00 normal Not Available [facility] ([facility]) [address] [facility], [place], [address], 07/13/2025 12:08:51 07/10/2007/11/2025 COMP. METAB OLIC PANEL (14) eGFR 95 mL/mi n/1.7 3 >59 normal Not Available [facility] ([facility]) [address] [place], [address], 07/13/2025 12:08:51 07/10/20 25 07/11/2025 COMP. METAB OLIC PANEL (14) BUN/creatini ne ratio 37 9-23 above high normal Not Available [facility] ([facility]) [address] [place], [address], 07/13/2025 12:08:51 07/10/2007/11/2025 COMP. METAB OLIC PANEL (14) sodium 140 mmol/ L 134-14 4 normal Not Available [facility] ([facility]) [address] [facility], [place], [address], 07/13/2025 12:08:51 07/10/2007/11/2025 COMP. METAB OLIC PANEL (14) potassium 4.2 mmol/ L 3.5-5. 2 normal Not Available [facility] ([facility]) [address] [place], [address], 07/13/2025 12:08:51 07/10/2007/11/2025 COMP. METAB OLIC PANEL (14) chloride 101 mmol/ L 96-106 normal Not Available [facility] ([facility]) [address] [place], [address], 07/13/2025 12:08:51 07/10/2007/11/2025 COMP. METAB OLIC PANEL (14) carbon dioxide, total 23 mmol/ L 20-29 normal Not Available [facility] ([facility]) [address] [place], [address], 07/13/2025 12:08:51 07/10/20 25 07/11/2025 COMP. METAB OLIC PANEL (14) calcium 9.2 mg/dL 8.7-10 .2 normal Not Available [facility] ([facility]) [address] [place], [address], 07/13/2025 12:08:51 07/10/2007/11/2025 COMP. METAB OLIC PANEL (14) protein, total 6.4 g/dL 6.0-8. 5 normal Not Available [facility] ([facility]) [address] [facility] [place], [address], 07/13/2025 12:08:51 07/10/2007/11/2025 COMP. METAB OLIC PANEL (14) albumin 3.9 g/dL 3.8-4. 9 normal Not Available [facility] ([facility]) [address] [facility] [place], [address], 07/13/2025 12:08:51 07/10/2007/11/2025 COMP. METAB OLIC PANEL (14) globulin, total 2.5 g/dL 1.5-4. 5 Not Available [facility] ([facility]) [address] [facility] [place], [address], 07/13/2025 12:08:51 07/10/2007/11/2025 COMP. METAB OLIC PANEL (14) bilirubin, total 0.3 mg/dL 0.0-1. 2 normal Not Available [facility] ([facility]) [address] [facility] [place], [address], 07/13/2025 12:08:51 07/10/2007/11/2025 COMP. METAB OLIC PANEL (14) alkaline phosphatase 101 IU/L 49-135 normal Not Available [facility] ([facility]) [address] [facility] [place], [address], 07/13/2025 12:08:51 07/10/20 25 07/11/2025 COMP. METAB OLIC PANEL (14) AST (SGOT) 24 IU/L 0-40 normal Not Available [facility] ([facility]) [address] [facility], [place], [address], 07/13/2025 12:08:51 07/10/2007/11/2025 COMP. METAB OLIC PANEL (14) ALT (SGPT) 34 IU/L 0-32 above high normal Not Available [facility] ([facility]) [address] [facility], [place], [address], 07/13/2025 12:08:51 07/10/2007/11/2025 LIPID PANEL cholesterol, total 137 mg/dL 100-19 9 normal Not Available [facility] ([facility]) [address] [facility], [place], [address], 07/13/2025 12:08:52 07/10/2007/11/2025 LIPID PANEL triglyceride s 69 mg/dL 0-149 normal Not Available [facility] ([facility]) [address] [place], [address], 07/13/2025 12:08:52 07/10/2007/11/2025 LIPID PANEL HDL cholesterol 40 mg/dL >39 normal Not Available [facility] ([facility]) [address] [facility], [place], [address], 07/13/2025 12:08:52 07/10/2007/11/2025 LIPID PANEL VLDL cholesterol hipolito 14 mg/dL 5-40 Not Available [facility] ([facility]) [address] [place], [address], 07/13/2025 12:08:52 07/10/2007/11/2025 LIPID PANEL LDL chol calc ([facility]) 83 mg/dL 0-99 Not Available [facility] ([facility]) [address] [place], [address], 07/13/2025 12:08:52 07/10/2007/11/2025 LIPID PANEL LDL calc comment: SKATES OPERATOR Not Available [facility] ([facility]) [address] [facility], [place], [address], 07/13/2025 12:08:52 07/10/2007/13/2025 AMPHE TAMIN ES, MS, UR RFX amphetamines ++POSI TIVE++ abnormal Not Available [facility] ([facility]) [address] [facility], [place], [address], 07/13/2025 12:08:53 07/10/2007/13/2025 AMPHE TAMIN ES, MS, UR RFX methamphetam ine Not Detect ed NG/mg _crea t Not Available [facility] ([facility]) [address] [facility], [place], [address], 07/13/2025 12:08:53 07/10/2007/13/2025 AMPHE TAMIN ES, MS, UR RFX amphetamine 1275 NG/mg _crea t Not Available [facility] ([facility]) [address] [facility], [place], [address], 07/13/2025 12:08:53 07/10/2007/13/2025 AMPHE TAMIN ES, MS, UR RFX MDMA (ecstasy) Not Detect ed NG/mg _crea t Not Available [facility] ([facility]) [address] [place], [address], 07/13/2025 12:08:53 07/10/2007/13/2025 AMPHE TAMIN ES, MS, UR RFX mda (ecstasy metabolite) Not Detect ed NG/mg _crea t Not Available [facility] ([facility]) [address] [place], [address], 07/13/2025 12:08:53 07/10/2007/11/2025 HCV ANTIB MARIE CASCA DE(PC R/GEN O) HCV Ab Non Reacti ve non reacti ve Not Available [facility] ([facility]) [address] [facility], [place], [address], 07/13/2025 12:08:53 07/10/2007/11/2025 HCV ANTIB MARIE CASCA DE(PC R/GEN O) interpretati on: Commen t Not infec shade with HCV unles s early or acute infec tion is suspe cted (whic h may be delay ed in an immun ocomp romis ed indiv idual ), or other evide nce exist s to indic ate HCV infec tion. Not Available [facility] ([facility]) [address] [facility], [place], [address], 07/13/2025 12:08:53 07/10/2007/11/2025 TSH TSH 1.330 uIU/m L 0.450- 4.500 normal Not Available [facility] ([facility]) [address] [facility], [place], [address], 07/13/2025 12:08:54 07/10/2007/11/2025 VITAM IN D, 25-HY [...] Endoc rine Socie ty went on to fur er defin e vitam in D insuf ficie ncy as a level betwe en 21 and 29 ng/mL (2). 1. IOM (Inst itute of Medic ine). 2010. Dieta ry refer ence intak es for calci um and D. Radha khan [place]: [facility] Press . 2. Qian moore [place], Gwen huitron [place], Wesley off-F errar i MCBRIDE, et al. Evalu ation , treat ment, and preve ntion of vitam in D defic iency : an Endoc rine Socie ty clini hipolito pract ice guide line. JCEM. 2010; 96(7) :1911 -30. Not Available [facility] [facility]) [address] [facility], [place], [address], 07/13/2025 12:08:55 07/10/2007/11/2025 HIV AB/P2 4 AG WITH REFLE X HIV Ab/P24 Ag screen Non Reacti ve non reacti ve HIV Negat alicia HIV-1 /HIV- 2 antib odies and HIV-1 p24 antig en were NOT detec shade. There is no labor atory evide nce of HIV infec tion. Not Available [facility] ([facility]) [address] [facility], [place], [address], 07/13/2025 12:08:55 07/10/2007/10/2025 micro album in/cr eatin ine, mass ratio , urine Microalbumin 10 mg/L Not Available [facility] [address] [place], [address], 07/10/2025 08:27:49 07/10/2007/10/2025 micro album in/cr eatin ine, mass ratio , urine Creatinine 50 mg/dL Not Available [facility] [address] [place], [address], 07/10/2025 08:27:49 07/10/2007/10/2025 micro album in/cr eatin ine, mass ratio , urine Ratio 30-300 mg/g Not Available [facility] [address] [place], [address], 07/10/2025 08:27:49 07/10/2007/10/2025 HbA1c (hemo globi n A1c), blood HbA1c 5.2 % Not Available [facility] [address] [place] [address], [address], 07/10/2025 08:27:42 07/09/2005/21/2025 MAMMO , scree marcela, digit al, bilat eral No observ ation record ed. Not Available 07/09 13:52:33 Result Notes None recorded. Problems Name Problem SNOMED Code Status Onset Date Resolution Date Notes Provider Name and Address Organization Details Recorded Time Adult attention deficit hyperacti vity disorder 308603183 Active 2023 PELON Shin [address] [place] [address], [address], [employer] 11:17:34 Attention deficit hyperacti vity disorder 015593667 Active 2023 PELON Shin [address] [place] [address], [address]368 8, [employer] 5 10:24:12 Type 2 diabetes mellitus without complicat ion 424623024 Active 2024 PELON Shin [address] [place] [address], [address] 8, [employer] 09:33:55 Osteoarth ritis 221448977 Active 2024 PELON Shin [address] [place] [address], 087[address]-706 8, [employer] 5 09:34:01 Depressiv e disorder 92903528 Active 2024 PELON Sihn [address] [place] [address], [address] 8, [employer] 5 14:23:24 Paronychi a of finger 548798538 Completed 202402/13/2025 PELON Shin [address] [place] [address], [address] 8, [employer] 5 10:24:46 Essential hypertens ion 29201235 Active 2024 PELON Shin [address] [place] [address], [address]733 8, [employer] 10:24:25 Contusion of left chest wall 294929586029 25631 Completed 202402/13/2025 PELON Shin [address] [place] [address], [address] 8, [employer] 10:24:22 Nodule on finger 640000882 Active 2024 PELON Shin [address] [place] [address], [address]052 8, [employer] 10:24:37 Tobacco dependenc e syndrome 89285692 Active 2024 PELON Shin [address] [place] [address], [address] [place] [address] 8, [employer] 17:26:43 Iron deficienc y anemia secondary to inadequat e dietary iron intake 978547360 Active 2024 PELON Shin [address] [place] [address], 25[address]996 8, [employer] 12:39:28 Problem Notes None recorded. Procedures Surgical History Date Name Laterality Status Provider Name and Address Organization Details Recorded Time 11/02/19 25 Diabetic Foot Screen completed PELON Shin [address] [place] [address], [address], [employer] 11/02/2024 12:31:17 01/20/20 24 Date of Last Pap Smear completed [employer] 12/28/2024 09:01:16 Breast Biopsy completed [employer] 07/06/2024 14:59:08 Caesarean Section completed [employer] 07/06/2024 14:59:08 Tonsillectomy completed [employer] 07/06/2024 14:59:08 Tubal Ligation completed [employer] 07/06/2024 14:59:08 Orthopedic Surgery completed [employer] 07/06/2024 14:59:08 Imaging Results None recorded. [...] 5 weeks. 2024 active manually faxed to [facility] Infusion Not Available Not Available Not Available [...] Last Updated DateTime 175.26 cm 27.9 kg/m2 42564.5 2 g 99 % 99 % 48 /min 98.4 [degF] 134/82 mm[Hg] [facility] [employer] [facility]. 08:23:49 Social History Question Answer Notes LastModified by Organizat ion Details LastModified Time Tobacco Smoking Status Former Smoker Felicia delatorre, [facility] [employer] 07/06/2024 14:59:08 Do You Have An [...] Information not available 07/10/2025 What Type Of Machine Riveter Do You Use? None Information not available [...] Or The Highest Degree You Have Received? [id number] Information not available 07/10/2025 Who Is Your Employer? [employer], [employer], [employer] Child Support Information not available 07/06/2024 [...] Do You Have A Medical Power Of Pharmacist Manager? Yes Information not available 07/06/2024 What Was [...] anxious, or unable to sleep at night)? [id number] Information not available 09/05/2024 Do you have [...] A, adult 05/14/2025 completed Felicia Vice null, [facility] 05/14/2025 08:59:56 MMR 05/14/2025 completed Felicia Vice null, [employer] 05/14/2025 08:59:56 Tdap 12/03/2024 completed Felicia Vice null, [place] [employer] 12/26/2024 15:39:28 typhoid, oral 05/02/2025 completed Not Available E[facility] 07/10/2025 08:16:07 Past Encounters Encounter ID Performer Location Encounter Start Date Encounter Closed Date Diagnosis/Indication Diagnosis SNOMED-CT Code Diagnosis ICD10 Code Diagnosis IMO Codes Diagnosis Note [id number] PELON Shin [facility] [address] [place] [address] 07/10/2025 08:04:46 07/10/2025 09:37:52 Type 2 diabetes mellitus 64425064 E11.9 45172282 Long-term current use of drug therapy 194119605 Z79.899 39715476 History of anemia - iron deficient 751965607 Z86.2 342181 HIV screening 207724311 Z11.4 494091 Viral scre ening status 708593395 Z11.59 218901 Health Concerns Section Related Observation LastModified by Organization Detai ls LastModified Time None Recorded Concern Status LastModified by Organization Details LastModified Time None Recorded Payers Encounter Date Sequence Insurance Name Policy Number Policy [place] Covered Member ID [place] Member ID Guarantor Name 07/10/2025 1 [facility] [id number] Leslye Morrison [id number] Leslye Morrison Notes Date Note Type Note Provider Name and Address Organization Details Recorded Time 07/10/2025 text/html ROS as noted in the HPI Patient presents for followup. History of ADHD. History of HTN, DM, OA, depression. She is due for refills. Recently returned from trip to the [facility]. History of iron deficiency anemia requiring iron infusions and would like to have labs drawn. PELON Shin [address] [place] [address], [address], [facility] [employer] 07/10/2025 13:04:14 OBGyn Episode No OBEpisode recorded.
[2025-08-06] MEDS: SODIUM CHLORIDE 0.9% 10ML FLUSH SYRINGE 10 ML IV (10:20)
[2025-08-06] MEDS: IRON SUCROSE COMPLEX 200 MG in 0.9 % SODIUM CHLORIDE 100 ML 220 MG IV (10:21)
[2025-08-06 11:00] VITALS: BP 125/70; PULSE 55; RESP 14; O2SAT 99
[2025-08-06 11:17] VITALS: BP 113/64; PULSE 54; RESP 14; TEMP 36.6; O2SAT 99
== END 2025-08-06 23:59 | disposition home or self-care (01) ==
LOC: INF 10:08
PROVIDERS: PCP Physician Assistant; Visit Provider Physician Assistant
DX: D50.9 Iron deficiency anemia, unspecified (principal)
CPT/HCPCS: 96365; J1756

== ENCOUNTER 2025-08-13 10:01 | Outpatient (CLI) | payer OTHER, SELFPAY ==
[2025-08-13 10:17] VITALS: BP 114/60; PULSE 56; RESP 18; O2SAT 95
[2025-08-13 11:05] VITALS: BP 128/69; PULSE 57; RESP 18; O2SAT 96
[2025-08-13] MEDS: IRON SUCROSE COMPLEX 200 MG in 0.9 % SODIUM CHLORIDE 100 ML 220 MG IV (11:18)
[2025-08-13] MEDS: SODIUM CHLORIDE 0.9% 10ML FLUSH SYRINGE 10 ML IV (11:19)
== END 2025-08-13 23:59 | disposition home or self-care (01) ==
PROVIDERS: PCP Physician Assistant; Visit Provider Physician Assistant
DX: D50.9 Iron deficiency anemia, unspecified (principal)
CPT/HCPCS: 96365; J1756

== ENCOUNTER 2025-08-20 10:20 | Outpatient (CLI) | payer OTHER, SELFPAY ==
[2025-08-20 10:30] VITALS: BP 123/63; PULSE 58; RESP 18; TEMP 36.6; O2SAT 99
[2025-08-20] MEDS: IRON SUCROSE COMPLEX 200 MG in 0.9 % SODIUM CHLORIDE 100 ML 220 MG IV (10:40)
--- OUTSIDE RECORDS SUMMARY | 2025-08-20 10:41 | XMS_ITS | Clinical Summary ---
Author Organization [facility] [place] [address] Care Team Providers Care Enrichment Assistant Name Role Phone Unavailable Primary Care Provider [...]
--- OUTSIDE RECORDS SUMMARY | 2025-08-20 10:42 | XMS_ITS | Clinical Summary ---
[facility] Address [address] [place] [address] Care Team Providers Care Brand Development Manager Name Role Phone Jenae Ellis Primary Care Provider [phone] Allergies No known active allergies Medications meloxicam [...] (04/04/2018): Added automatically from request for surgery [id number] Encounters Date Type Department Care Team Description 05/30/2025 1:00 PM EDT Office Visit [facility] [address] [facility] [address] [place] [address] Sobeida Piedra APRN NF1 gene mutation positive (Primary Dx); Screening for breast cancer using non-mammogram modality; At high risk for breast cancer; Encounter for screening mammogram for high-risk patient 05/29/2025 8:40 AM EDT Office Visit [facility] [address] [facility] [address] [place] [address] Sita Riley MD Ganglion cyst of finger of left hand (Primary Dx) 05/29/2025 Travel from Last 3 Months Family History Medical History Relation Name Comments Cancer Maternal Aunt 1 Tejas Velazquez Ovarian cancer Maternal Aunt 1 Tejas Velazquez 30's Brain cancer Maternal Aunt 2 Diabetes Maternal Grandmother Agueda Griggs Osteoporosis Maternal Grandmother Agueda Griggs Stroke Maternal [...] Description 01/24/2026 9:00 AM EDT Office Visit [facility] OBGYN [address] [facility] [address] [place] [id number] Jeremi Beltran, [facility] [address] [facility] [address] [place] [id number] 06/04/2026 11:30 AM EDT Office Visit [facility] [address] [facility] [address] [place] [address] Sobeida Piedra, [employer] [address] [facility] [address] [place] [address] Health Maintenance Due Date Last Done Comments [...] 01/23/2025 MAMMOGRAM TCS >= 20 05/15/2026 05/15/2025, PAP SMEAR 01/19/2027 01/20/2024 TDAP/TD VACCINES (2 - Td or Tdap) 12/03/2034 025 MAMMOGRAM Discontinued 05/21/2025, 04/27, 05/02/2024, Additional history exists Procedures Procedure Name Priority Date/Time Associated Diagnosis Comments MAMMO SCREENING DIGITAL TOMOSYNTHESIS BILATERAL W CAD Routine 05/15/2025 3:04 PM EDT At high risk for breast cancer LIQUID-BASED PAP SMEAR WITH HPV GENOTYPING REGARDLESS OF INTERPRETATION, [facility] (FATOU,COR,MAD) Routine 01/20/2024 11:35 AM EDT Well woman exam with routine gynecological exam HEMOGLOBIN A1C Routine 04/17/2018 4:17 PM EDT Lung mass from Last 3 Months or Most Recently Relevant to Health Maintenance Results * Mammo Screening Digital Tomosynthesis Bilateral With [...] of concern indicated by the patient. A [place] marker is placed over a visible skin [...] suggest development of malignancy. Sobeida Piedra APRN [facility] ORDERABLES Final Result * LIQUID-BASED PAP SMEAR WITH HPV GENOTYPING REGARDLESS OF INTERPRETATION (FATOU,COR,MAD) (01/20/2024 11:35 AM EDT) Reference Lab Report [facility] [address] [place] [address] or [phone] Toi Metzger M.D., Press Department Manager PATIENT NAME [facility]. [id number] AGE SEX SSN CLIENT REF # [id number] [id number] 1970 F [id number] [address] [facility] [id number] REQUESTING Elisabeth[place] [address] JEREMI BELTRAN DATE COLLECTED DATE RECEIVED DATE [...] 51, 52, 56, 58, 59, 66, 68 FAMILY MEMBER CARETAKER: RORO HERNANDEZ (ASCP) CPT CODES: 83880, 03024 01/25/2024 8:09 AM EDT [facility] ThinPrep Vial Cervix uteri structure / Unknown Collection / Unknown 01/20/2024 11:35 AM EDT 01/20/2024 11:35 AM EDT Jeremi Beltran [facility] PATHOLOGY/CYTOLOGY ORDERABLES Final Result [facility]
[address] [place] [address], * (ABNORMAL) Hemoglobin A1c (04/17/2018 4:17 PM EDT) Hemoglobin A1C 6.60(H) 4.80 - 5.60 % 04/17/2018 5:45 PM EDT [facility] Blood Venipuncture / Unknown 04/17/2018 4:17 PM EDT 04/17/2018 4:26 PM EDT Narrative [facility] - 04/17/2018 5:45 PM EDT The [place] [employer] recommends maintenance of Hemoglobin A1C at 7.0% or lower. Goals for Hemoglobin A1C reduction may need to be modified if hypoglycemia is a problem. [facility] BLOOD ORDERABLES Final R esult [facility]
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
--- OUTSIDE RECORDS SUMMARY | 2025-08-20 10:42 | XMS_ITS | Patient Health Record ---
[facility] Address [address] [facility] [address] [id number] Care Team Providers Care Surgical Technologist Name Role Phone Tunde Almaguer Primary Care Provider [phone] Medications Medication SIG (Take, Route, Frequency, Duration) [...] a nd pick correct strength-formulati on from [employer]ynspan options. 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 Problem Polyarthralgia (14385974) Polyarthralgia (719.49) Active confirmed Problem Depressive disorder (13821545) Depressive disorder NEC (311) Active confirmed Problem Hypokalemia (46871811) Hypokalemia (E87.6) Active confirmed Problem Essential hypertension (83465451) Essential hypertension (I10) Active confirmed Problem Impaired fasting glucose (626964837) Impaired fasting glucose (R73.01) Active confirmed Problem Depressive disorder (19204737) Depressive disorder (F32.9) Active confirmed Problem Morbid obesity (786504179) Morbid obesity due to excess calories (E66.01) Active confirmed Problem Iron deficiency anemia (01634826) Other iron deficiency anemia (D50.8) Active confirmed Plan Of Treatment No Information Insurance Providers Payer Name Payer Address Payer Phone Subscriber Number Group Number Insured Name Patient Relationship to Insured Coverage Start Date Coverage End Date [employer] [address] [place] [address] [id number] Leslye Morrison Self - patient is the [...] ankle reconstruction 1998 Hospitalization History Reason Date(Month/Year) [facility] 06/17/15 2000
[2025-08-20 11:15] VITALS: BP 123/63; PULSE 58; RESP 18; O2SAT 99
== END 2025-08-20 11:20 | disposition home or self-care (01) ==
LOC: INF 10:21
PROVIDERS: PCP Physician Assistant; Visit Provider Physician Assistant
DX: D50.9 Iron deficiency anemia, unspecified (principal)
CPT/HCPCS: 96365; J1756

== ENCOUNTER 2025-08-27 13:49 | Outpatient (CLI) | payer OTHER, SELFPAY ==
--- OUTSIDE RECORDS SUMMARY | 2025-08-27 13:53 | XMS_ITS | Continuity of Care Document ---
[facility] Organization [facility] Address [address] [place] [address] Assessment No assessment recorded. Plan of Treatment Reminders Order Date Submit Date Provider Last Modified By Organization Details Last Modified Time Details Appointments FOLLOW UP 30 2024 09:00A Roger Ellis PA-C Not available Not available Not available Lab HbA1c (hemoglob in A1c), blood [address], [address] [facility], [place], [address], 07/10/2025 09:08:36 microalbu min/creat inine, mass ratio, urine [address], [address] [facility], [place], [address], 07/10/2025 09:08:36 lipid panel, serum 2024 025 AICHA [facility] ([place]), [address] [place], [address], 07/13/2025 12:08:52 CMP, serum or plasma 2024 025 AICHA [facility] ([place]), [address] [facility], [place], [address], 07/13/2025 12:08:51 CBC w/ auto diff 2024 025 [facility] ([place]), [address] [place], [address], 07/13/2025 12:08:50 vitamin D, 25-hydrox y, total, serum 2024 025 [facility]), [address] [place], [address], 07/13/2025 12:08:55 TSH, ultra-sen sitive, serum 2024 025 [facility] ([place]), [address] [place], [address], 07/13/2025 12:08:54 iron + TIBC + ferritin, serum 2024 025 [facility]), [address] [place], [address], 07/13/2025 12:08:50 unlisted lab - toxassure flex 19, [id number] -[id number] 2024 025 [facility]), [address] [place], [address], 07/13/2025 12:08:49 Hepatitis C IgG Ab, qual, serum 2024 025 [facility]), [address] [place], [address], 07/13/2025 12:08:53 HIV 1 + 2, meaningfu l use set 2024 025 [facility]), [address] [place], [address], 07/13/2025 12:08:55 Referral None recorded. Procedures None recorded. Surgeries None recorded. Imaging None recorded. Medication Orders None recorded. Patient TargetsNo targets recorded. Patient Instructions Encounter Date Encounter Id Patient Instructions Last Modified By Organization Details Last Modified Time 07/10/2025 [id number] learning about type 2 diabetes [email or web address] Not available 07/10/2025 09:08:36 type 2 diabetes: care instructions [email or web address] Not available 07/10/2025 09:08:36 HIV testing: car [...] ===== ===== ===== === Not Available [facility] ([facility]) [address] [place], [address], 07/13/2025 12:08:48 07/10/2007/13/2025 TOXAS SURE FLEX 19, UR pdf . Not Available [facility] ([facility]) [address] [place], [address], 07/13/2025 12:08:48 07/10/2007/13/2025 TOXAS SURE FLEX 19, UR creatinine 52 mg/dL >=20 REFER ENCE RANGE : Ref Range >=20 Not Available [facility] ([facility]) [address] [facility], [place], [address], 07/13/2025 12:08:48 07/10/2007/13/2025 TOXAS SURE FLEX 19, UR amphetamines ia COMMEN T NG/mL cutoff :300 Furth er testi ng indic ated Not Available [facility] ([facility]) [address] [place], [address], 07/13/2025 12:08:48 07/10/2007/13/2025 TOXAS SURE FLEX 19, UR benzodiazepi nadiya Negati ve Not Available [facility] ([facility]) [address] [place], [address], 07/13/2025 12:08:48 07/10/2007/13/2025 TOXAS SURE FLEX 19, UR diazepam Not Detect ed NG/mg _crea t Not Available [facility] ([facility]) [address] [place], [address], 07/13/2025 12:08:48 07/10/2007/13/2025 TOXAS SURE FLEX 19, UR desmethyldia zepam Not Detect ed NG/mg _crea t Not Available [facility] ([facility]) [address] [facility], [place], [address], 07/13/2025 12:08:48 07/10/2007/13/2025 TOXAS SURE FLEX 19, UR oxazepam Not Detect ed NG/mg _crea t Not Available [facility] ([facility]) [address] [place], [address], 07/13/2025 12:08:48 07/10/2007/13/2025 TOXAS SURE FLEX 19, [...] adair Oxaze adair: None Not Available [facility] ([facility]) [address] [place], [address], 07/13/2025 12:08:48 07/10/2007/13/2025 TOXAS SURE FLEX 19, UR alprazolam Not Detect ed NG/mg _crea t Not Available [facility] ([facility]) [address] [place], [address], 07/13/2025 12:08:48 07/10/2007/13/2025 TOXAS SURE FLEX 19, UR alpha-hydrox yalprazolam Not Detect ed NG/mg _crea t Not Available [facility] ([facility]) [address] [place], [address], 07/13/2025 12:08:48 07/10/2007/13/2025 TOXAS SURE FLEX 19, UR desalkylflur azepam Not Detect ed NG/mg _crea t Not Available [facility] ([facility]) [address] [place], [address], 07/13/2025 12:08:48 07/10/2007/13/2025 TOXAS SURE FLEX 19, UR lorazepam Not Detect ed NG/mg _crea t Not Available [facility] ([facility]) [address] [place], [address], 07/13/2025 12:08:48 07/10/2007/13/2025 TOXAS SURE FLEX 19, UR alpha-hydrox ytriazolam Not Detect ed NG/mg _crea t Not Available [facility] ([facility]) [address] [place], [address], 07/13/2025 12:08:48 07/10/2007/13/2025 TOXAS SURE FLEX 19, UR clonazepam Not Detect ed NG/mg _crea t Not Available [facility] ([facility]) [address] [place], [address], 07/13/2025 12:08:48 07/10/2007/13/2025 TOXAS SURE FLEX 19, UR 7-aminoclona zepam Not Detect ed NG/mg _crea t Not Available [facility] ([facility]) [address] [place], [address], 07/13/2025 12:08:48 07/10/2007/13/2025 TOXAS SURE FLEX 19, UR midazolam Not Detect ed NG/mg _crea t Not Available [facility] ([facility]) [address] [place], [address], 07/13/2025 12:08:48 07/10/2007/13/2025 TOXAS SURE FLEX 19, UR alpha-hydrox ymidazolam Not Detect ed NG/mg _crea t Not Available [facility] ([facility]) [address] [place], [address], 07/13/2025 12:08:48 07/10/2007/13/2025 TOXAS SURE FLEX 19, UR flunitrazepa m Not Detect ed NG/mg _crea t Not Available [facility] ([facility]) [address] [place], [address], 07/13/2025 12:08:48 07/10/2007/13/2025 TOXAS SURE FLEX 19, UR desmethylflu nitrazepam Not Detect ed NG/mg _crea t Not Available [facility] ([facility]) [address] [place], [address], 07/13/2025 12:08:48 07/10/2007/13/2025 TOXAS SURE FLEX 19, UR cocaine metabolite ia Negati ve NG/mL cutoff :150 Not Available [facility] ([facility]) [address] [place], [address], 07/13/2025 12:08:48 07/10/2007/13/2025 TOXAS SURE FLEX 19, UR ethanol biomarkers ia Negati ve NG/mL cutoff :500 Not Available [facility] ([facility]) [address] [place] [address], [address], 07/13/2025 12:08:48 07/10/20 25 07/13/2025 TOXAS SURE FLEX 19, UR cannabinoids ia Negati ve NG/mL cutoff :20 Not Available [facility] ([facility]) [address] [place], [address], 07/13/2025 12:08:48 07/10/20 25 07/13/2025 TOXAS SURE FLEX 19, UR 6-acetylmorp john ia Negati ve NG/mL cutoff :10 Not Available [facility] ([facility]) [address] [place] [address], [address], 07/13/2025 12:08:48 07/10/20 25 07/13/2025 TOXAS SURE FLEX 19, UR opiate class ia Negati ve NG/mL cutoff :100 Not Available [facility] ([facility]) [address] [place], [address], 07/13/2025 12:08:48 07/10/20 25 07/13/2025 TOXAS SURE FLEX 19, UR oxycodone class ia Negati ve NG/mL cutoff :100 Not Available [facility] ([facility]) [address] [place], [address], 07/13/2025 12:08:48 07/10/20 25 07/13/2025 TOXAS SURE FLEX 19, UR methadone ia Negati ve NG/mL cutoff :100 Not Available [facility] ([facility]) [address] [place], [address], 07/13/2025 12:08:48 07/10/20 25 07/13/2025 TOXAS SURE FLEX 19, UR methadone mtb ia Negati ve NG/mL cutoff :100 Not Available [facility] ([facility]) [address] [place], [address], 07/13/2025 12:08:48 07/10/20 25 07/13/2025 TOXAS SURE FLEX 19, UR buprenorphin e ia Negati ve NG/mL cutoff :5.0 Not Available [facility] ([facility]) [address] [facility] [place], [address], 07/13/2025 12:08:48 07/10/2007/13/2025 TOXAS SURE FLEX 19, UR fentanyl ia Negati ve NG/mL cutoff :2.0 Not Available [facility] ([facility]) [address] [facility], [place], [address], 07/13/2025 12:08:48 07/10/2007/13/2025 TOXAS SURE FLEX 19, UR tapentadol ia Negati ve NG/mL cutoff :200 Not Available [facility] ([facility]) [address] [facility], [place], [address], 07/13/2025 12:08:48 07/10/2007/13/2025 TOXAS SURE FLEX 19, UR propoxyphene ia Negati ve NG/mL cutoff :300 Not Available [facility] ([facility]) [address] [facility], [place], [address], 07/13/2025 12:08:48 07/10/2007/13/2025 TOXAS SURE FLEX 19, UR tramadol ia Negati ve NG/mL cutoff :200 Not Available [facility] ([facility]) [address] [place], [address], 07/13/2025 12:08:48 07/10/2007/13/2025 TOXAS SURE FLEX 19, UR methylphenid ate ia Negati ve NG/mL cutoff :100 Not Available [facility] ([facility]) [address] [place], [address], 07/13/2025 12:08:48 07/10/2007/13/2025 TOXAS SURE FLEX 19, UR barbiturates ia Negati ve NG/mL cutoff :200 Not Available [facility] ([facility]) [address] [place] [address], [address], 07/13/2025 12:08:48 07/10/2007/13/2025 TOXAS SURE FLEX 19, UR phencyclidin e ia Negati ve NG/mL cutoff :25 Not Available [facility] ([facility]) [address] [place], [address], 07/13/2025 12:08:48 07/10/20 25 07/13/2025 TOXAS SURE FLEX 19, UR gabapentin ia Negati ve ug/mL cutoff :1.0 Not Available [facility] ([facility]) [address] [place], [address], 07/13/2025 12:08:48 07/10/2007/13/2025 TOXAS SURE FLEX 19, UR anticonvulsa nts Negati ve Not Available [facility] ([facility]) [address] [place], [address], 07/13/2025 12:08:48 07/10/2007/13/2025 TOXAS SURE FLEX 19, UR pregabalin Not Detect ed Not Available [facility] ([facility]) [address] [place], [address], 07/13/2025 12:08:48 07/10/2007/13/2025 TOXAS SURE FLEX 19, UR carisoprodol ia Negati ve NG/mL cutoff :100 Not Available [facility] ([facility]) [address] [place], [address], 07/13/2025 12:08:48 07/10/2007/11/2025 FE+TI BC+FE R iron bind.cap.(TI BC) 321 ug/dL 250-45 0 normal Not Available [facility] ([facility]) [address] [place], [address], 07/13/2025 12:08:49 07/10/20 25 07/11/2025 FE+TI BC+FE R UIBC 277 ug/dL 131-42 5 normal Not Available [facility] ([facility]) [address] [place], [address], 07/13/2025 12:08:49 07/10/2007/11/2025 FE+TI BC+FE R iron 44 ug/dL 27-159 normal Not Available [facility] ([facility]) [address] [place], [address], 07/13/2025 12:08:49 07/10/2007/11/2025 FE+TI BC+FE R iron saturation 14 % 15-55 below low normal Not Available [facility] ([facility]) [address] [place], [address], 07/13/2025 12:08:49 07/10/2007/11/2025 FE+TI BC+FE R ferritin 22 NG/mL 15-150 normal Not Available [facility] ([facility]) [address] [place], [address], 07/13/2025 12:08:49 07/10/2007/11/2025 CBC WITH DIFFE RENTI AL/PL ATELE T WBC 6.8 x10e3 /uL 3.4-10 .8 normal Not Available [facility] ([facility]) [address] [place], [address], 07/13/2025 12:08:50 07/10/2007/11/2025 CBC WITH DIFFE RENTI AL/PL ATELE T RBC 4.20 x10e6 /uL 3.77-5 .28 normal Not Available [facility] ([facility]) [address] [place], [address], 07/13/2025 12:08:50 07/10/2007/11/2025 CBC WITH DIFFE RENTI AL/PL ATELE T hemoglobin 11.9 g/dL 11.1-1 5.9 normal Not Available [facility] ([facility]) [address] [place], [address], 07/13/2025 12:08:50 07/10/2007/11/2025 CBC WITH DIFFE RENTI AL/PL ATELE T hematocrit 37.8 % 34.0-4 6.6 normal Not Available [facility] ([facility]) [address] [facility], [place], [address], 07/13/2025 12:08:50 07/10/2007/11/2025 CBC WITH DIFFE RENTI AL/PL ATELE T MCV 90 fL 79-97 normal Not Available [facility] ([facility]) [address] [place], [address], 07/13/2025 12:08:50 07/10/2007/11/2025 CBC WITH DIFFE RENTI AL/PL ATELE T MCH 28.3 pg 26.6-3 3.0 normal Not Available [facility] ([facility]) [address] [facility], [place], [address], 07/13/2025 12:08:50 07/10/2007/11/2025 CBC WITH DIFFE RENTI AL/PL ATELE T MCHC 31.5 g/dL 31.5-3 5.7 normal Not Available [facility] ([facility]) [address] [place], [address], 07/13/2025 12:08:50 07/10/2007/11/2025 CBC WITH DIFFE RENTI AL/PL ATELE T RDW 12.6 % 11.7-1 5.4 Not Available [facility] ([facility]) [address] [place], [address], 07/13/2025 12:08:50 07/10/2007/11/2025 CBC WITH DIFFE RENTI AL/PL ATELE T platelets 230 x10e3 /uL 150-45 0 normal Not Available [facility] ([facility]) [address] [place], [address], 07/13/2025 12:08:50 07/10/2007/11/2025 CBC WITH DIFFE RENTI AL/PL ATELE T neutrophils 77 % not estab. normal Not Available [facility] ([facility]) [address] [facility], [place], [address], 07/13/2025 12:08:50 07/10/2007/11/2025 CBC WITH DIFFE RENTI AL/PL ATELE T lymphs 14 % not estab. normal Not Available [facility] ([facility]) [address] [facility], [place], [address], 07/13/2025 12:08:50 07/10/2007/11/2025 CBC WITH DIFFE RENTI AL/PL ATELE T monocytes 7 % not estab. normal Not Available [facility] ([facility]) [address] [facility], [place], [address], 07/13/2025 12:08:50 07/10/2007/11/2025 CBC WITH DIFFE RENTI AL/PL ATELE T eos 2 % not estab. normal Not Available [facility] ([facility]) [address] [facility], [place], [address], 07/13/2025 12:08:50 07/10/2007/11/2025 CBC WITH DIFFE RENTI AL/PL ATELE T basos 0 % not estab. normal Not Available [facility] ([facility]) [address] [facility], [place], [address], 07/13/2025 12:08:50 07/10/2007/11/2025 CBC WITH DIFFE RENTI AL/PL ATELE T immature cells RECEIVER DISPATCHER Not Available [facility] ([facility]) [address] [facility], [place], [address], 07/13/2025 12:08:50 07/10/2007/11/2025 CBC WITH DIFFE RENTI AL/PL ATELE T neutrophils (absolute) 5.2 x10e3 /uL 1.4-7. 0 normal Not Available [facility] ([facility]) [address] [place], [address], 07/13/2025 12:08:50 07/10/20 25 07/11/2025 CBC WITH DIFFE RENTI AL/PL ATELE T lymphs (absolute) 1.0 x10e3 /uL 0.7-3. 1 normal Not Available [facility] ([facility]) [address] [place], [address], 07/13/2025 12:08:50 07/10/2007/11/2025 CBC WITH DIFFE RENTI AL/PL ATELE T monocytes(ab solute) 0.5 x10e3 /uL 0.1-0. 9 normal Not Available [facility] ([facility]) [address] [place], [address], 07/13/2025 12:08:50 07/10/20 25 07/11/2025 CBC WITH DIFFE RENTI AL/PL ATELE T eos (absolute) 0.2 x10e3 /uL 0.0-0. 4 normal Not Available [facility] ([facility]) [address] [place], [address], 07/13/2025 12:08:50 07/10/20 25 07/11/2025 CBC WITH DIFFE RENTI AL/PL ATELE T baso (absolute) 0.0 x10e3 /uL 0.0-0. 2 normal Not Available [facility] ([facility]) [address] [place], [address], 07/13/2025 12:08:50 07/10/20 25 07/11/2025 CBC WITH DIFFE RENTI AL/PL ATELE T immature granulocytes 0 % not estab. Not Available [facility] ([facility]) [address] [place], [address], 07/13/2025 12:08:50 07/10/2007/11/2025 CBC WITH DIFFE RENTI AL/PL ATELE T immature grans (abs) 0.0 x10e3 /uL 0.0-0. 1 Not Available [facility] ([facility]) [address] [facility], [place], [address], 07/13/2025 12:08:50 07/10/2007/11/2025 CBC WITH DIFFE RENTI AL/PL ATELE T NRBC RECEIVER DISPATCHER Not Available [facility] ([facility]) [address] [facility], [place], [address], 07/13/2025 12:08:50 07/10/2007/11/2025 CBC WITH DIFFE RENTI AL/PL ATELE T hematology comments: RECEIVER DISPATCHER Not Available [facility] ([facility]) [address] [facility], [place], [address], 07/13/2025 12:08:50 07/10/2007/11/2025 COMP. METAB OLIC PANEL (14) glucose 77 mg/dL 70-99 normal Not Available [facility] ([facility]) [address] [facility], [place], [address], 07/13/2025 12:08:51 07/10/2007/11/2025 COMP. METAB OLIC PANEL (14) BUN 28 mg/dL 6-24 above high normal Not Available [facility] ([facility]) [address] [facility], [place], [address], 07/13/2025 12:08:51 07/10/2007/11/2025 COMP. METAB OLIC PANEL (14) creatinine 0.75 mg/dL 0.57-1 .00 normal Not Available [facility] ([facility]) [address] [facility], [place], [address], 07/13/2025 12:08:51 07/10/2007/11/2025 COMP. METAB OLIC PANEL (14) eGFR 95 mL/mi n/1.7 3 >59 normal Not Available [facility] ([facility]) [address] [place], [address], 07/13/2025 12:08:51 07/10/20 25 07/11/2025 COMP. METAB OLIC PANEL (14) BUN/creatini ne ratio 37 9-23 above high normal Not Available [facility] ([facility]) [address] [place], [address], 07/13/2025 12:08:51 07/10/2007/11/2025 COMP. METAB OLIC PANEL (14) sodium 140 mmol/ L 134-14 4 normal Not Available [facility] ([facility]) [address] [facility], [place], [address], 07/13/2025 12:08:51 07/10/2007/11/2025 COMP. METAB OLIC PANEL (14) potassium 4.2 mmol/ L 3.5-5. 2 normal Not Available [facility] ([facility]) [address] [place], [address], 07/13/2025 12:08:51 07/10/2007/11/2025 COMP. METAB OLIC PANEL (14) chloride 101 mmol/ L 96-106 normal Not Available [facility] ([facility]) [address] [place], [address], 07/13/2025 12:08:51 07/10/2007/11/2025 COMP. METAB OLIC PANEL (14) carbon dioxide, total 23 mmol/ L 20-29 normal Not Available [facility] ([facility]) [address] [place], [address], 07/13/2025 12:08:51 07/10/20 25 07/11/2025 COMP. METAB OLIC PANEL (14) calcium 9.2 mg/dL 8.7-10 .2 normal Not Available [facility] ([facility]) [address] [place], [address], 07/13/2025 12:08:51 07/10/2007/11/2025 COMP. METAB OLIC PANEL (14) protein, total 6.4 g/dL 6.0-8. 5 normal Not Available [facility] ([facility]) [address] [place], [address], 07/13/2025 12:08:51 07/10/2007/11/2025 COMP. METAB OLIC PANEL (14) albumin 3.9 g/dL 3.8-4. 9 normal Not Available [facility] ([facility]) [address] [facility] [place], [address], 07/13/2025 12:08:51 07/10/2007/11/2025 COMP. METAB OLIC PANEL (14) globulin, total 2.5 g/dL 1.5-4. 5 Not Available [facility] ([facility]) [address] [place], [address], 07/13/2025 12:08:51 07/10/2007/11/2025 COMP. METAB OLIC PANEL (14) bilirubin, total 0.3 mg/dL 0.0-1. 2 normal Not Available [facility] ([facility]) [address] [place], [address], 07/13/2025 12:08:51 07/10/2007/11/2025 COMP. METAB OLIC PANEL (14) alkaline phosphatase 101 IU/L 49-135 normal Not Available [facility] ([facility]) [address] [place], [address], 07/13/2025 12:08:51 07/10/20 25 07/11/2025 COMP. METAB OLIC PANEL (14) AST (SGOT) 24 IU/L 0-40 normal Not Available [facility] ([facility]) [address] [facility], [place], [address], 07/13/2025 12:08:51 07/10/2007/11/2025 COMP. METAB OLIC PANEL (14) ALT (SGPT) 34 IU/L 0-32 above high normal Not Available [facility] ([facility]) [address] [facility], [place], [address], 07/13/2025 12:08:51 07/10/2007/11/2025 LIPID PANEL cholesterol, total 137 mg/dL 100-19 9 normal Not Available [facility] ([facility]) [address] [facility], [place], [address], 07/13/2025 12:08:52 07/10/2007/11/2025 LIPID PANEL triglyceride s 69 mg/dL 0-149 normal Not Available [facility] ([facility]) [address] [place], [address], 07/13/2025 12:08:52 07/10/2007/11/2025 LIPID PANEL HDL cholesterol 40 mg/dL >39 normal Not Available [facility] ([facility]) [address] [facility], [place], [address], 07/13/2025 12:08:52 07/10/2007/11/2025 LIPID PANEL VLDL cholesterol hipolito 14 mg/dL 5-40 Not Available [facility] ([facility]) [address] [place], [address], 07/13/2025 12:08:52 07/10/2007/11/2025 LIPID PANEL LDL chol calc ([facility]) 83 mg/dL 0-99 Not Available [facility] ([facility]) [address] [place], [address], 07/13/2025 12:08:52 07/10/2007/11/2025 LIPID PANEL LDL calc comment: RECEIVER DISPATCHER Not Available [facility] ([facility]) [address] [facility], [place], [address], 07/13/2025 12:08:52 07/10/2007/13/2025 AMPHE TAMIN ES, MS, UR RFX amphetamines ++POSI TIVE++ abnormal Not Available [facility] ([facility]) [address] [facility], [place], [address], 07/13/2025 12:08:53 07/10/2007/13/2025 AMPHE TAMIN ES, MS, UR RFX methamphetam ine Not Detect ed NG/mg _crea t Not Available [facility] ([facility]) [address] [facility], [place], [address], 07/13/2025 12:08:53 07/10/2007/13/2025 AMPHE TAMIN ES, MS, UR RFX amphetamine 1275 NG/mg _crea t Not Available [facility] ([facility]) [address] [facility], [place], [address], 07/13/2025 12:08:53 07/10/2007/13/2025 AMPHE TAMIN ES, MS, UR RFX MDMA (ecstasy) Not Detect ed NG/mg _crea t Not Available [facility] ([facility]) [address] [place], [address], 07/13/2025 12:08:53 07/10/2007/13/2025 AMPHE TAMIN ES, MS, UR RFX mda (ecstasy metabolite) Not Detect ed NG/mg _crea t Not Available [facility] ([facility]) [address] [place], [address], 07/13/2025 12:08:53 07/10/2007/11/2025 HCV ANTIB MARIE CASCA DE(PC R/GEN O) HCV Ab Non Reacti ve non reacti ve Not Available [facility] ([facility]) [address] [facility], [place], [address], 07/13/2025 12:08:53 07/10/2007/11/2025 HCV ANTIB MARIE CASCA DE(PC R/GEN O) interpretati on: Commen t Not infec shade with HCV unles s early or acute infec tion is suspe cted (whic h may be delay ed in an immun ocomp romis ed indiv idual ), or other evide nce exist s to indic ate HCV infec tion. Not Available [facility] ([facility]) [address] [facility], [place], [address], 07/13/2025 12:08:53 07/10/2007/11/2025 TSH TSH 1.330 uIU/m L 0.450- 4.500 normal Not Available [facility] ([facility]) [address] [facility], [place], [address], 07/13/2025 12:08:54 07/10/2007/11/2025 VITAM IN D, 25-HY [...] and D. Radha khan [place]: [facility] Press . 2. Qian moore [place], Gwen huitron [place], Wesley off-F errar i MCBRIDE, et al. Evalu ation , treat ment, and preve ntion of vitam in D defic iency : an Endoc rine Socie ty clini hipolito pract ice guide line. JCEM. 2010; 96(7) :1911 -30. Not Available [facility] ([facility]) [address] [facility], [place], [address], 07/13/2025 12:08:55 07/10/2007/11/2025 HIV AB/P2 4 AG WITH REFLE X HIV Ab/P24 Ag screen Non Reacti ve non reacti ve HIV Negat alicia HIV-1 /HIV- 2 antib odies and HIV-1 p24 antig en were NOT detec shade. There is no labor atory evide nce of HIV infec tion. Not Available [facility] ([facility]) [address] [facility], [place], [address], 07/13/2025 12:08:55 07/10/2007/10/2025 micro album in/cr eatin ine, mass ratio , urine Microalbumin 10 mg/L Not Available [facility] [address] [place], [address], 07/10/2025 08:27:49 07/10/2007/10/2025 micro album in/cr eatin ine, mass ratio , urine Creatinine 50 mg/dL Not Available [facility] [address] [place], [address], 07/10/2025 08:27:49 07/10/2007/10/2025 micro album in/cr eatin ine, mass ratio , urine Ratio 30-300 mg/g Not Available [facility] [address] [place], [address], 07/10/2025 08:27:49 07/10/2007/10/2025 HbA1c (hemo globi n A1c), blood HbA1c 5.2 % Not Available [facility] [address] [place] [address], [id number], 07/10/2025 08:27:42 07/09/2005/21/2025 MAMMO , scree marcela, digit al, bilat eral No observ ation record ed. Not Available 07/09 13:52:33 Result Notes None recorded. Problems Name Problem SNOMED Code Status Onset Date Resolution Date Notes Provider Name and Address Organization Details Recorded Time Adult attention deficit hyperacti vity disorder 770093533 Active 2023 PELON Shin [address] [place] [address], [phone] 8, [employer] 11:17:34 Attention deficit hyperacti vity disorder 680381310 Active 2023 PELON Shin [address] [place] [address], [phone] 8, [employer] 5 10:24:12 Type 2 diabetes mellitus without complicat ion 760903521 Active 2024 PELON Shin [address] [place] [address], [phone] 8, [employer] 09:33:55 Osteoarth ritis 557303538 Active 2024 PELON Shin [address] [place] [address], [phone] 8, [employer] 5 09:34:01 Depressiv e disorder 79071238 Active 2024 PELON Shin [address] [place] [address], [phone] 8, [employer] 5 14:23:24 Paronychi a of finger 869875604 Completed 202402/13/2025 PELON Shin [address] [place] [address], [phone] 8, [employer] 5 10:24:46 Essential hypertens ion 70802851 Active 2024 PELON Shin [address] [place] [address], [phone] 8, [employer] 10:24:25 Contusion of left chest wall 289969361111 43168 Completed 202402/13/2025 PELON Shin [address] [place] [address], [phone] 8, [employer] 10:24:22 Nodule on finger 652003560 Active 2024 PELON Shin [address] [place] [address], [phone] 8, [employer] 10:24:37 Tobacco dependenc e syndrome 15656711 Active 2024 PELON Shin [address] [place] [address], [address] [place] [address] 8, [employer] 17:26:43 Iron deficienc y anemia secondary to inadequat e dietary iron intake 221146622 Active 2024 PELON Shin [address] [place] [address], [phone] 8, [employer] 12:39:28 Problem Notes None recorded. Procedures Surgical History Date Name Laterality Status Provider Name and Address Organization Details Recorded Time 11/02/19 25 Diabetic Foot Screen completed PELON Shin [address] [place] [address], [phone], [employer] 11/02/2024 12:31:17 01/20/20 24 Date of Last Pap Smear completed [employer] 12/28/2024 09:01:16 Breast Biopsy completed [employer] 07/06/2024 14:59:08 Caesarean Section completed [employer] 07/06/2024 14:59:08 Tonsillectomy completed [employer] 07/06/2024 14:59:08 Tubal Ligation completed [employer] 07/06/2024 14:59:08 Orthopedic Surgery completed [employer] 07/06/2024 14:59:08 Imaging Results None recorded. [...] 5 weeks. 2024 active manually faxed to [facility] Infusion Not Available Not Available Not Available Ozempic 2 mg/dose (8 mg/3 mL) subcutane ous pen injector INJECT 2MG SUBCUTAN EOUSLY ONCE A WEEK 12/12 completed Not Available Not Available Not Available Mounjaro 5 mg/0.5 mL subcutane ous pen injector ADMINIST ER 5 MG UNDER THE SKIN EVERY WEEK 2024 active Not Available Not Available Not Avai lable Mounjaro 2.5 mg/0.5 mL subcutane ous pen injector ADMINIST ER 2.5 MG UNDER THE SKIN EVERY WEEK FOR DIABETES 12/12 completed Not Available Not Available Not Available Vitals Date Recorded Body height Body mass index (BMI) Body weight Oxygen saturation Heart rate Body temperature Systolic And Diastolic Provider Name and Address Organization Details Last Updated DateTime 5 175.26 cm 27.9 kg/m2 83652.5 2 g 99 % 48 /min 98.4 [degF] 134/82 mm[Hg] [facility] [employer] [facility]. 5 08:23:49 Social History Question Answer Notes LastModified by Organizat ion Details LastModified Time Tobacco Smoking Status Former Smoker Felicia delatorre, [facility] [employer] 07/06/2024 14:59:08 Do You Have An [...] Information not available 07/10/2025 What Type Of Life Management Teacher Do You Use? None Information not available [...] Or The Highest Degree You Have Received? [id number] Information not available 07/10/2025 Who Is Your Employer? 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 Yes Information not available 07/06/2024 What Was [...] anxious, or unable to sleep at night)? [id number] Information not available 09/05/2024 Do you have [...] History Condition Response Coronary Artery Disease N Gout N Other N Kidney Stones N Blood Diseases N [...] A, adult 05/14/2025 completed [facility], [facility] [employer] 05/14/2025 08:59:56 MMR 05/14/2025 completed Felicia Vice null, [employer] 05/14/2025 08:59:56 Tdap 12/03/2024 completed [facility]icia Vice null, [facility] 12/26/2024 15:39:28 typhoid, oral 05/02/2025 completed Not Available [facility] 07/10/2025 08:16:07 Past Encounters Encounter ID Performer Location Encounter Start Date Encounter Closed Date Diagnosis/Indication Diagnosis SNOMED-CT Code Diagnosis ICD10 Code Diagnosis IMO Codes Diagnosis Note [id number] PELON Shin [facility] [address] [place] [address] 07/10/2025 08:04:46 07/10/2025 09:37:52 Type 2 diabetes mellitus 98472266 E11.9 74037969 Long-term current use of drug therapy 227093408 Z79.899 57405710 History of anemia - iron deficient 195782714 Z86.2 971364 HIV screening 794351037 Z11.4 646556 Viral scre ening status 003369173 Z11.59 162859 Health Concerns Section Related Observation LastModified by Organization Detai ls LastModified Time None Recorded Concern Status LastModified by Organization Details LastModified Time None Recorded Payers Encounter Date Sequence Insurance Name Policy Number Policy [place] Covered Member ID [place] Member ID Guarantor Name 07/10/2025 1 [id number] Leslyegerhard Morrison [id number] Leslye Morrison Notes Date Note Type Note Provider Name and Address Organization Details Recorded Time 07/10/2025 text/html ROS as noted in the HPI Patient presents for followup. History of ADHD. History of HTN, DM, OA, depression. She is due for refills. Recently returned from trip to the [facility]. History of iron deficiency anemia requiring iron infusions and would like to have labs drawn. PELON Shin [address] [place] [address], [phone], [facility] [employer] 07/10/2025 13:04:14 OBGyn Episode No OBEpisode recorded.
--- OUTSIDE RECORDS SUMMARY | 2025-08-27 13:53 | XMS_ITS | Data Portability ---
Author Organization [facility] [place] [facility] Address [address] [place] [address] Assessment No assessment recorded. Plan of Treatment Reminders Order Date Submit Date Provider Last Modified By Organization Details Last Modified Time Details Appointments FOLLOW UP 30 2024 09:00A M Jenae Ellis PA-C Not available Not available Not available Lab HbA1c (hemoglob in A1c), blood [address], [address] [place], [address], 07/10/2025 09:08:36 microalbu min/creat inine, mass ratio, urine [address], [address] [place], [address], 07/10/2025 09:08:36 lipid panel, serum 2024 025 AIC[facility] ([facility]), [address] [facility] [address], [place], [address], 07/13/2025 12:08:52 CMP, serum or plasma 2024 025 AICHA [facility] ([facility]), [address] [facility], [place], [address], 07/13/2025 12:08:51 CBC w/ auto diff 2024 025 [facility] ([facility]), [address] [place], [address], 07/13/2025 12:08:50 vitamin D, 25-hydrox y, total, serum 2024 025 [facility] ([facility]), [address] [place], [address], 07/13/2025 12:08:55 TSH, ultra-sen sitive, serum 2024 025 [facility] ([facility]), [address] [place], [address], 07/13/2025 12:08:54 iron + TIBC + ferritin, serum 2024 025 [facility] ([facility]), [address] [place], [address], 07/13/2025 12:08:50 unlisted lab - toxassure flex 19, [id number] 2024 025 [facility] ([facility]), [address] [place], [address], 07/13/2025 12:08:49 Hepatitis C IgG Ab, qual, serum 2024 025 [facility] ([facility]), [address] [place], [address], 07/13/2025 12:08:53 HIV 1 + 2, meaningfu l use set 2024 025 [facility] ([facility]), [address] [place], [address], 07/13/2025 12:08:55 measles + mumps + rubella virus IgG panel, QN, serum or plasma 2024 025 [facility] ([facility]), [address] [place], [address], 05/08/2025 08:12:54 Referral hand surgeon referral 2024 025 [facility], [address], [address], [place], [address], 02/27/2025 10:33:47 Procedures None recorded. Surgeries None recorded. Imaging LDCT, chest, for lung cancer screening 2024 025 [facility] ([facility]), [address], [place], [address], 03/26/2025 13:52:42 Medication Orders levofloxa rosemarie 500 mg tablet 2024 025 [id number], [address] , [place], [place], [id number], 05/21/2025 05:01:51 ondansetr on 8 mg disintegr ating tablet 2024 025 [id number], [address], [place], [place], [id number], 05/24/2025 05:01:11 Patient TargetsNo targets recorded. Patient Instructions Encounter Date Encounter Id Patient Instructions Last Modified By Organization Details Last Modified Time 03/06/2025 [id number] arthritis: care instructions Not available 03/06/2025 17:37:03 deciding about using medicines to quit smoking [email or web address] Not available 03/06/2025 17:26:58 Quitting Tobacco : Care Instructions [email or web address] Not available 03/06/2025 17:26:58 high blood pressure: care instructions [email or web address] Not available 03/06/2025 17:37:03 learning about high blood pressure [email or web address] Not available 03/06/2025 17:37:03 learning about mood disorders [email or web address] Not available 03/06/2025 17:37:03 attention defici t hyperactivity disorder (ADHD) in adults: care instructions [email or web address] Not available 03/06/2025 17:37:03 07/10/2025 [id number] learning about type 2 diabetes [email or web address] Not available 07/10/2025 09:08:36 type 2 diabetes: care instructions [email or web address] Not available 07/10/2025 09:08:36 HIV testing: car [...] 0.99 Immun e >0.99 Not Available [facility] ([facility]) [address] [facility], [place], [address], 05/08/2025 08:12:54 05/07/2005/08/2025 MEASL ES/MU MPS/R UBELL A IMMUN ITY measles antibodies, IgG <13.5 AU/mL immune >16.4 below low normal Negat alicia <13.5 Equiv ocal 13.5 - 16.4 Posit alicia >16.4 Prese nce of antib odies to [place]ube[place] la is presu mptiv e evide nce of immun ity excep t when acute infec tion is suspe cted. Not Available [facility] ([facility]) [address] [facility], [place], [address], 05/08/2025 08:12:54 05/07/2005/08/2025 MEASL ES/MU MPS/R UBELL A IMMUN ITY mumps abs, IgG <9.0 AU/mL immune >10.9 below low normal Negat alicia <9.0 Equiv ocal 9.0 - 10.9 Posit alicia >10.9 A posit alicia resul t gener ally indic ates past expos ure to Mumps virus or previ ous vacci natio n. Not Available [facility] ([facility]) [address], [place], [address], 05/08/2025 08:12:54 07/10/20 25 07/13/2025 TOXAS SURE [...] ===== ===== ===== === Not Available [facility] ([facility]) [address] [place], [address], 07/13/2025 12:08:48 07/10/2007/13/2025 TOXAS SURE FLEX 19, UR pdf . Not Available [facility] ([facility]) [address] [place], [address], 07/13/2025 12:08:48 07/10/2007/13/2025 TOXAS SURE FLEX 19, UR creatinine 52 mg/dL >=20 REFER ENCE RANGE : Ref Range >=20 Not Available [facility] ([facility]) [address] [facility], [place], [address], 07/13/2025 12:08:48 07/10/2007/13/2025 TOXAS SURE FLEX 19, UR amphetamines ia COMMEN T NG/mL cutoff :300 Furth er testi ng indic ated Not Available [facility] ([facility]) [address] [place], [address], 07/13/2025 12:08:48 07/10/2007/13/2025 TOXAS SURE FLEX 19, UR benzodiazepi nadiya Negati ve Not Available [facility] ([facility]) [address] [place], [address], 07/13/2025 12:08:48 07/10/2007/13/2025 TOXAS SURE FLEX 19, UR diazepam Not Detect ed NG/mg _crea t Not Available [facility] ([facility]) [address] [place], [address], 07/13/2025 12:08:48 07/10/2007/13/2025 TOXAS SURE FLEX 19, UR desmethyldia zepam Not Detect ed NG/mg _crea t Not Available [facility] ([facility]) [address] [facility], [place], [address], 07/13/2025 12:08:48 07/10/2007/13/2025 TOXAS SURE FLEX 19, UR oxazepam Not Detect ed NG/mg _crea t Not Available [facility] ([facility]) [address] [facility], [place], [address], 07/13/2025 12:08:48 07/10/2007/13/2025 TOXAS SURE FLEX 19, [...] adair Oxaze adair: None Not Available [facility] ([facility]) [address] [facility], [place], [address], 07/13/2025 12:08:48 07/10/2007/13/2025 TOXAS SURE FLEX 19, UR alprazolam Not Detect ed NG/mg _crea t Not Available [facility] ([facility]) [address] [place], [address], 07/13/2025 12:08:48 07/10/2007/13/2025 TOXAS SURE FLEX 19, UR alpha-hydrox yalprazolam Not Detect ed NG/mg _crea t Not Available [facility] ([facility]) [address] [place], [address], 07/13/2025 12:08:48 07/10/2007/13/2025 TOXAS SURE FLEX 19, UR desalkylflur azepam Not Detect ed NG/mg _crea t Not Available [facility] ([facility]) [address] [place], [address], 07/13/2025 12:08:48 07/10/2007/13/2025 TOXAS SURE FLEX 19, UR lorazepam Not Detect ed NG/mg _crea t Not Available [facility] ([facility]) [address] [place], [address], 07/13/2025 12:08:48 07/10/2007/13/2025 TOXAS SURE FLEX 19, UR alpha-hydrox ytriazolam Not Detect ed NG/mg _crea t Not Available [facility] ([facility]) [address] [place], [address], 07/13/2025 12:08:48 07/10/2007/13/2025 TOXAS SURE FLEX 19, UR clonazepam Not Detect ed NG/mg _crea t Not Available [facility] ([facility]) [address] [place], [address], 07/13/2025 12:08:48 07/10/2007/13/2025 TOXAS SURE FLEX 19, UR 7-aminoclona zepam Not Detect ed NG/mg _crea t Not Available [facility] ([facility]) [address] [place], [address], 07/13/2025 12:08:48 07/10/2007/13/2025 TOXAS SURE FLEX 19, UR midazolam Not Detect ed NG/mg _crea t Not Available [facility] ([facility]) [address] [place], [address], 07/13/2025 12:08:48 07/10/2007/13/2025 TOXAS SURE FLEX 19, UR alpha-hydrox ymidazolam Not Detect ed NG/mg _crea t Not Available [facility] ([facility]) [address] [place], [address], 07/13/2025 12:08:48 07/10/2007/13/2025 TOXAS SURE FLEX 19, UR flunitrazepa m Not Detect ed NG/mg _crea t Not Available [facility] ([facility]) [address] [place], [address], 07/13/2025 12:08:48 07/10/2007/13/2025 TOXAS SURE FLEX 19, UR desmethylflu nitrazepam Not Detect ed NG/mg _crea t Not Available [facility] ([facility]) [address] [place], [address], 07/13/2025 12:08:48 07/10/2007/13/2025 TOXAS SURE FLEX 19, UR cocaine metabolite ia Negati ve NG/mL cutoff :150 Not Available [facility] ([facility]) [address] [place], [address], 07/13/2025 12:08:48 07/10/2007/13/2025 TOXAS SURE FLEX 19, UR ethanol biomarkers ia Negati ve NG/mL cutoff :500 Not Available [facility] ([facility]) [address] [place], [address], 07/13/2025 12:08:48 07/10/2007/13/2025 TOXAS SURE FLEX 19, UR cannabinoids ia Negati ve NG/mL cutoff :20 Not Available [facility] ([facility]) [address] [place], [address], 07/13/2025 12:08:48 07/10/20 25 07/13/2025 TOXAS SURE FLEX 19, UR 6-acetylmorp john ia Negati ve NG/mL cutoff :10 Not Available [facility] ([facility]) [address] [place], [address], 07/13/2025 12:08:48 07/10/20 25 07/13/2025 TOXAS SURE FLEX 19, UR opiate class ia Negati ve NG/mL cutoff :100 Not Available [facility] ([facility]) [address] [place], [address], 07/13/2025 12:08:48 07/10/2007/13/2025 TOXAS SURE FLEX 19, UR oxycodone class ia Negati ve NG/mL cutoff :100 Not Available [facility] ([facility]) [address] [place], [address], 07/13/2025 12:08:48 07/10/20 25 07/13/2025 TOXAS SURE FLEX 19, UR methadone ia Negati ve NG/mL cutoff :100 Not Available [facility] ([facility]) [address] [place] [address], [address], 07/13/2025 12:08:48 07/10/20 25 07/13/2025 TOXAS SURE FLEX 19, UR methadone mtb ia Negati ve NG/mL cutoff :100 Not Available [facility] ([facility]) [address] [place] [address], [address], 07/13/2025 12:08:48 07/10/2007/13/2025 TOXAS SURE FLEX 19, UR buprenorphin e ia Negati ve NG/mL cutoff :5.0 Not Available [facility] ([facility]) [address] [place] [address], [address], 07/13/2025 12:08:48 07/10/20 25 07/13/2025 TOXAS SURE FLEX 19, UR fentanyl ia Negati ve NG/mL cutoff :2.0 Not Available [facility] ([facility]) [address] [place], [address], 07/13/2025 12:08:48 07/10/2007/13/2025 TOXAS SURE FLEX 19, UR tapentadol ia Negati ve NG/mL cutoff :200 Not Available [facility] ([facility]) [address] [place], [address], 07/13/2025 12:08:48 07/10/20 25 07/13/2025 TOXAS SURE FLEX 19, UR propoxyphene ia Negati ve NG/mL cutoff :300 Not Available [facility] ([facility]) [address] [place], [address], 07/13/2025 12:08:48 07/10/20 25 07/13/2025 TOXAS SURE FLEX 19, UR tramadol ia Negati ve NG/mL cutoff :200 Not Available [facility] ([facility]) [address] [place], [address], 07/13/2025 12:08:48 07/10/20 25 07/13/2025 TOXAS SURE FLEX 19, UR methylphenid ate ia Negati ve NG/mL cutoff :100 Not Available [facility] ([facility]) [address] [place], [address], 07/13/2025 12:08:48 07/10/20 25 07/13/2025 TOXAS SURE FLEX 19, UR barbiturates ia Negati ve NG/mL cutoff :200 Not Available [facility] ([facility]) [address] [place] [address], [address], 07/13/2025 12:08:48 07/10/20 25 07/13/2025 TOXAS SURE FLEX 19, UR phencyclidin e ia Negati ve NG/mL cutoff :25 Not Available [facility] ([facility]) [address] [place], [address], 07/13/2025 12:08:48 07/10/2007/13/2025 TOXAS SURE FLEX 19, UR gabapentin ia Negati ve ug/mL cutoff :1.0 Not Available [facility] ([facility]) [address] [place], [address], 07/13/2025 12:08:48 07/10/2007/13/2025 TOXAS SURE FLEX 19, UR anticonvulsa nts Negati ve Not Available [facility] ([facility]) [address] [place], [address], 07/13/2025 12:08:48 07/10/2007/13/2025 TOXAS SURE FLEX 19, UR pregabalin Not Detect ed Not Available [facility] ([facility]) [address] [place], [address], 07/13/2025 12:08:48 07/10/2007/13/2025 TOXAS SURE FLEX 19, UR carisoprodol ia Negati ve NG/mL cutoff :100 Not Available [facility] ([facility]) [address] [facility], [place], [address], 07/13/2025 12:08:48 07/10/2007/11/2025 FE+TI BC+FE R iron bind.cap.(TI BC) 321 ug/dL 250-45 0 normal Not Available [facility] ([facility]) [address] [place], [address], 07/13/2025 12:08:49 07/10/2007/11/2025 FE+TI BC+FE R UIBC 277 ug/dL 131-42 5 normal Not Available [facility] ([facility]) [address] [place], [address], 07/13/2025 12:08:49 07/10/2007/11/2025 FE+TI BC+FE R iron 44 ug/dL 27-159 normal Not Available [facility] ([facility]) [address] [place], [address], 07/13/2025 12:08:49 07/10/2007/11/2025 FE+TI BC+FE R iron saturation 14 % 15-55 below low normal Not Available [facility] ([facility]) [address] [place], [address], 07/13/2025 12:08:49 07/10/2007/11/2025 FE+TI BC+FE R ferritin 22 NG/mL 15-150 normal Not Available [facility] ([facility]) [address] [place], [address], 07/13/2025 12:08:49 07/10/2007/11/2025 CBC WITH DIFFE RENTI AL/PL ATELE T WBC 6.8 x10e3 /uL 3.4-10 .8 normal Not Available [facility] ([facility]) [address] [place], [address], 07/13/2025 12:08:50 07/10/2007/11/2025 CBC WITH DIFFE RENTI AL/PL ATELE T RBC 4.20 x10e6 /uL 3.77-5 .28 normal Not Available [facility] ([facility]) [address] [place], [address], 07/13/2025 12:08:50 07/10/2007/11/2025 CBC WITH DIFFE RENTI AL/PL ATELE T hemoglobin 11.9 g/dL 11.1-1 5.9 normal Not Available [facility] ([facility]) [address] [place], [address], 07/13/2025 12:08:50 07/10/20 25 07/11/2025 CBC WITH DIFFE RENTI AL/PL ATELE T hematocrit 37.8 % 34.0-4 6.6 normal Not Available [facility] ([facility]) [address] [place], [address], 07/13/2025 12:08:50 07/10/20 25 07/11/2025 CBC WITH DIFFE RENTI AL/PL ATELE T MCV 90 fL 79-97 normal Not Available [facility] ([facility]) [address] [facility], [place], [address], 07/13/2025 12:08:50 07/10/2007/11/2025 CBC WITH DIFFE RENTI AL/PL ATELE T MCH 28.3 pg 26.6-3 3.0 normal Not Available [facility] ([facility]) [address] [facility], [place], [address], 07/13/2025 12:08:50 07/10/2007/11/2025 CBC WITH DIFFE RENTI AL/PL ATELE T MCHC 31.5 g/dL 31.5-3 5.7 normal Not Available [facility] ([facility]) [address] [place], [address], 07/13/2025 12:08:50 07/10/20 25 07/11/2025 CBC WITH DIFFE RENTI AL/PL ATELE T RDW 12.6 % 11.7-1 5.4 Not Available [facility] ([facility]) [address] [place], [address], 07/13/2025 12:08:50 07/10/2007/11/2025 CBC WITH DIFFE RENTI AL/PL ATELE T platelets 230 x10e3 /uL 150-45 0 normal Not Available [facility] ([facility]) [address] [place], [address], 07/13/2025 12:08:50 07/10/20 25 07/11/2025 CBC WITH DIFFE RENTI AL/PL ATELE T neutrophils 77 % not estab. normal Not Available [facility] ([facility]) [address] [facility], [place], [address], 07/13/2025 12:08:50 07/10/2007/11/2025 CBC WITH DIFFE RENTI AL/PL ATELE T lymphs 14 % not estab. normal Not Available [facility] ([facility]) [address] [facility], [place], [address], 07/13/2025 12:08:50 07/10/2007/11/2025 CBC WITH DIFFE RENTI AL/PL ATELE T monocytes 7 % not estab. normal Not Available [facility] ([facility]) [address] [facility], [place], [address], 07/13/2025 12:08:50 07/10/2007/11/2025 CBC WITH DIFFE RENTI AL/PL ATELE T eos 2 % not estab. normal Not Available [facility] ([facility]) [address] [facility], [place], [address], 07/13/2025 12:08:50 07/10/2007/11/2025 CBC WITH DIFFE RENTI AL/PL ATELE T basos 0 % not estab. 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 0 normal Not Available [facility] ([facility]) [address] [place], [address], 07/13/2025 12:08:50 07/10/20 25 07/11/2025 CBC WITH DIFFE RENTI AL/PL ATELE T lymphs (absolute) 1.0 x10e3 /uL 0.7-3. 1 normal Not Available [facility] ([facility]) [address] [facility], [place], [address], 07/13/2025 12:08:50 07/10/2007/11/2025 CBC WITH DIFFE RENTI AL/PL ATELE T monocytes(ab solute) 0.5 x10e3 /uL 0.1-0. 9 normal Not Available [facility] ([facility]) [address] [facility], [place], [address], 07/13/2025 12:08:50 07/10/20 25 07/11/2025 CBC WITH DIFFE RENTI AL/PL ATELE T eos (absolute) 0.2 x10e3 /uL 0.0-0. 4 normal Not Available [facility] ([facility]) [address] [facility], [place], [address], 07/13/2025 12:08:50 07/10/20 25 07/11/2025 CBC WITH DIFFE RENTI AL/PL ATELE T baso (absolute) 0.0 x10e3 /uL 0.0-0. 2 normal Not Available [facility] ([facility]) [address] [facility], [place], [address], 07/13/2025 12:08:50 07/10/20 25 07/11/2025 CBC WITH DIFFE RENTI AL/PL ATELE T immature granulocytes 0 % not estab. Not Available [facility] ([facility]) [address] [place], [address], 07/13/2025 12:08:50 07/10/20 25 07/11/2025 CBC WITH DIFFE RENTI AL/PL ATELE T immature grans (abs) 0.0 x10e3 /uL 0.0-0. 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 METAB OLIC PANEL (14) glucose 77 mg/dL 70-99 normal Not Available [facility] ([facility]) [address] [place], [address], 07/13/2025 12:08:51 07/10/2007/11/2025 COMP. METAB OLIC PANEL (14) BUN 28 mg/dL 6-24 above high normal Not Available [facility] ([facility]) [address] [facility] [place], [address], 07/13/2025 12:08:51 07/10/2007/11/2025 COMP. METAB OLIC PANEL (14) creatinine 0.75 mg/dL 0.57-1 .00 normal Not Available [facility] ([facility]) [address] [facility] [place], [address], 07/13/2025 12:08:51 07/10/2007/11/2025 COMP. METAB OLIC PANEL (14) eGFR 95 mL/mi n/1.7 3 >59 normal Not Available [facility] ([facility]) [address] [facility], [place], [address], 07/13/2025 12:08:51 07/10/2007/11/2025 COMP. METAB OLIC PANEL (14) BUN/creatini ne ratio 37 9-23 above high normal Not Available [facility] ([facility]) [address] [facility], [place], [address], 07/13/2025 12:08:51 07/10/2007/11/2025 COMP. METAB OLIC PANEL (14) sodium 140 mmol/ L 134-14 4 normal Not Available [facility] ([facility]) [address] [facility] [place], [address], 07/13/2025 12:08:51 07/10/2007/11/2025 COMP. METAB OLIC PANEL (14) potassium 4.2 mmol/ L 3.5-5. 2 normal Not Available [facility] ([facility]) [address] [facility], [place], [address], 07/13/2025 12:08:51 07/10/2007/11/2025 COMP. METAB OLIC PANEL (14) chloride 101 mmol/ L 96-106 normal Not Available [facility] ([facility]) [address] [facility], [place], [address], 07/13/2025 12:08:51 07/10/2007/11/2025 COMP. METAB OLIC PANEL (14) carbon dioxide, total 23 mmol/ L 20-29 normal Not Available [facility] ([facility]) [address] [place], [address], 07/13/2025 12:08:51 07/10/2007/11/2025 COMP. METAB OLIC PANEL (14) calcium 9.2 mg/dL 8.7-10 .2 normal Not Available [facility] ([facility]) [address] [place], [address], 07/13/2025 12:08:51 07/10/2007/11/2025 COMP. METAB OLIC PANEL (14) protein, total 6.4 g/dL 6.0-8. 5 normal Not Available [facility] ([facility]) [address] [facility] [place], [address], 07/13/2025 12:08:51 07/10/2007/11/2025 COMP. METAB OLIC PANEL (14) albumin 3.9 g/dL 3.8-4. 9 normal Not Available [facility] ([facility]) [address] [facility] [place], [address], 07/13/2025 12:08:51 07/10/2007/11/2025 COMP. METAB OLIC PANEL (14) globulin, total 2.5 g/dL 1.5-4. 5 Not Available [facility] ([facility]) [address] [facility] [place], [address], 07/13/2025 12:08:51 07/10/2007/11/2025 COMP. METAB OLIC PANEL (14) bilirubin, total 0.3 mg/dL 0.0-1. 2 normal Not Available [facility] ([facility]) [address] [facility] [place], [address], 07/13/2025 12:08:51 07/10/2007/11/2025 COMP. METAB OLIC PANEL (14) alkaline phosphatase 101 IU/L 49-135 normal Not Available [facility] ([facility]) [address] [facility], [address], 07/13/2025 12:08:51 07/10/2007/11/2025 COMP. METAB OLIC PANEL (14) AST (SGOT) 24 IU/L 0-40 normal Not Available [facility] ([facility]) [address] [facility] [place], [address], 07/13/2025 12:08:51 07/10/2007/11/2025 COMP. METAB OLIC PANEL (14) ALT (SGPT) 34 IU/L 0-32 above high normal Not Available [facility] ([facility]) [address] [facility], [place], [address], 07/13/2025 12:08:51 07/10/2007/11/2025 LIPID PANEL cholesterol, total 137 mg/dL 100-19 9 normal Not Available [facility] ([facility]) [address] [place], [address], 07/13/2025 12:08:52 07/10/2007/11/2025 LIPID PANEL triglyceride s 69 mg/dL 0-149 normal Not Available [facility] ([facility]) [address] [place], [address], 07/13/2025 12:08:52 07/10/2007/11/2025 LIPID PANEL HDL cholesterol 40 mg/dL >39 normal Not Available [facility] ([facility]) [address] [place], [address], 07/13/2025 12:08:52 07/10/2007/11/2025 LIPID PANEL VLDL cholesterol hipolito 14 mg/dL 5-40 Not Available [facility] ([facility]) [address] 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 Not Available [facility] ([facility]) [address] [place], [address], 07/13/2025 12:08:52 07/10/2007/13/2025 AMPHE TAMIN ES, MS, UR RFX amphetamines ++POSI TIVE++ abnormal Not Available [facility] ([facility]) [address] [place], [address], 07/13/2025 12:08:53 07/10/2007/13/2025 AMPHE TAMIN ES, MS, UR RFX methamphetam ine Not Detect ed NG/mg _crea t Not Available [facility] ([facility]) [address] [place], [address], 07/13/2025 12:08:53 07/10/2007/13/2025 AMPHE TAMIN ES, MS, UR RFX amphetamine 1275 NG/mg _crea t Not Available [facility] ([facility]) [address] [place], [address], 07/13/2025 12:08:53 07/10/2007/13/2025 AMPHE TAMIN ES, MS, UR RFX MDMA (ecstasy) Not Detect ed NG/mg _crea t Not Available [facility] ([facility]) [address] [place] [address], [address], 07/13/2025 12:08:53 07/10/2007/13/2025 AMPHE TAMIN ES, MS, UR RFX mda (ecstasy metabolite) Not Detect ed NG/mg _crea t Not Available [facility] ([facility]) [address] [place] [address], [address], 07/13/2025 12:08:53 07/10/2007/11/2025 HCV ANTIB MARIE CASCA DE(PC R/GEN O) HCV Ab Non Reacti ve non reacti ve Not Available [facility] ([facility]) [address] [place], [address], 07/13/2025 12:08:53 07/10/2007/11/2025 HCV ANTIB MARIE CASCA DE(PC R/GEN O) interpretati on: Commen t Not infec shade with HCV unles s early or acute infec tion is suspe cted (whic h may be delay ed in an immun ocomp romis ed indiv idual ), or other evide nce exist s to indic ate HCV infec tion. Not Available [facility] ([facility]) [address] [facility], [place], [address], 07/13/2025 12:08:53 07/10/2007/11/2025 TSH TSH 1.330 uIU/m L 0.450- 4.500 normal Not Available [facility] ([facility]) [address] [facility], [place], [address], 07/13/2025 12:08:54 07/10/2007/11/2025 VITAM IN D, 25-HY [...] intak es for calci um and D. aRdha khan [place]: The [employer] [facility] . 2. Qian moore MF, Gwen huitron [place], Wesley off-F errar i MCBRIDE, et al. Evalu ation , treat ment, and preve ntion of vitam in D defic iency : an Endoc rine Socie ty clini hipolito pract ice guide line. JCEM. 2010; 96(7) :1911 -30. Not Available [facility] ([facility]) [address] [facility], [place], [address], 07/13/2025 12:08:55 07/10/2007/11/2025 HIV AB/P2 4 AG WITH REFLE X HIV Ab/P24 Ag screen Non Reacti ve non reacti ve HIV Negat alicia HIV-1 /HIV- 2 antib odies and HIV-1 p24 antig en were NOT detec shade. There is no labor atory evide nce of HIV infec tion. Not Available [facility] ([facility]) [address], [place], [address], 07/13/2025 12:08:55 07/10/2007/10/2025 micro album in/cr eatin ine, mass ratio , urine Microalbumin 10 mg/L Not Available [facility] [address] [place], [address], 07/10/2025 08:27:49 07/10/2007/10/2025 micro album in/cr eatin ine, mass ratio , urine Creatinine 50 mg/dL Not Available [facility] [address] [place] [address], [address], 07/10/2025 08:27:49 07/10/20 25 07/10/2025 micro album in/cr eatin ine, mass ratio , urine Ratio 30-300 mg/g Not Available [facility] [address] [place] [address], [address], 07/10/2025 08:27:49 07/10/2007/10/2025 HbA1c (hemo globi n A1c), blood HbA1c 5.2 % Not Available [facility] [address] [place] [address], [address], 07/10/2025 08:27:42 02/03/20 25 01/23/2025 XR, chest , 2 view No observ ation record ed. [facility] (X-Ray) [address] [place], [address], 02/08/2025 09:48:39 02/03/20 25 01/19/2025 XR, ribs, unila teral , 2 view No observ ation record ed. [address] (X-Ray) [address], [place], [address], 02/08/2025 09:48:39 03/26/20 25 03/21/2025 LDCT, chest , for lung cance r scree marcela No observ ation record ed. [address] (Scheduling) [address], [place], [address], 03/26/2025 14:23:53 07/09/2005/21/2025 MAMMO , scree marcela, digit al, bilat eral No observ ation record ed. [email or web address] Not Available 07/09 13:52:33 Result Notes None recorded. Problems Name Problem SNOMED Code Status Onset Date Resolution Date Notes Provider Name and Address Organization Details Recorded Time Adult attention deficit hyperacti vity disorder 976709426 Active 2023 PELON Shin [address] [place] [address], [address], [employer] 4 11:17:34 Attention deficit hyperacti vity disorder 505703384 Active 2023 PELON Shin [address] [place] [address], [address], [place] [employer] 5 10:24:12 Type 2 diabetes mellitus without complicat ion 125350221 Active 2024 PELON Shin [address] [place] [address], [address], [employer] 5 09:33:55 Osteoarth ritis 964895930 Active 2024 PELON Shin [address] [place] [address], [address] [place] [address] 8, [employer] 5 09:34:01 Depressiv e disorder 89507827 Active 2024 PELON hSin [address] [place] [address], [address], [employer] 5 14:23:24 Paronychi a of finger 898434731 Completed 202402/13/2025 PELON Shin [address] [place] [address], [address] [place] [address] 8, [employer] 5 10:24:46 Essential hypertens ion 02864528 Active 2024 PELON Shin [address] [place] [address], [address] [place] [address], [employer] 5 10:24:25 Contusion of left chest wall 243149091861 01946 Completed 202402/13/2025 PELON Shin [address] [place] [address], [address] [place] [address], [employer] 10:24:22 Nodule on finger 516468973 Active 2024 Jenae Ellis [address], [address] [place] [address], [employer] 5 10:24:37 Tobacco dependenc e syndrome 65204439 Active 2024 PELON Shin [address] [place] [address], [address] [place] [address], [employer] 17:26:43 Iron deficienc y anemia secondary to inadequat e dietary iron intake 001271574 Active 2024 PELON Shin [address] [place] [address], [address] [place] [address], [employer] 12:39:28 Problem Notes None recorded. Procedures Surgical History Date Name Laterality Status Provider Name and Address Organization Details Recorded Time 11/02/19 Diabetic Foot Screen completed PELON Shin [address] [place] [address], [address], [employer] 11/02/2024 12:31:17 01/20/20 24 Date of Last Pap Smear completed [employer] 12/28/2024 09:01:16 Breast Biopsy completed [employer] 07/06/2024 14:59:08 Caesarean Section completed [employer] 07/06/2024 14:59:08 Tonsillectomy completed [email or web address] 07/06/2024 14:59:08 Tubal Ligation completed [employer] 07/06/2024 14:59:08 Orthopedic Surgery completed [employer] 07/06/2024 14:59:08 Imaging Results None recorded. Procedure [...] Updated DateTime 5 175.26 cm 31.4 kg/m2 56724.7 4 g 99 % 54 /min 98.2 [degF] 112/74 mm[Hg] [employer] 5 08:38:58 Date Recorded Body height Body mass index (BMI) Body weight Body temperature Heart rate Oxygen saturation Systolic And Diastolic Provider Name and Address Organization Details Last Updated DateTime 5 175.26 cm 30.5 kg/m2 09056.1 3 g 98.3 [degF] 57 /min 99 % 116/75 mm[Hg] Jo Kapadia [employer] 5 17:02:10 Date Recorded Body height Body mass index (BMI) Body weight Oxygen saturation Heart rate Body temperature Systolic And Diastolic Provider Name and Address Organization Details Last Updated DateTime 5 175.26 cm 28.6 kg/m2 05160.1 3 g 98 % 57 /min 98.5 [degF] 107/70 mm[Hg] Brittani Sultana [employer] 5 14:50:39 Date Recorded Body height Body mass index (BMI) Body weight Oxygen saturation Heart rate Body temperature Systolic And Diastolic Provider Name and Address Organization Details Last Updated DateTime 5 175.26 cm 28.1 kg/m2 66268.7 1 g 99 % 60 /min 98.2 [degF] 120/66 mm[Hg] [employer] 5 08:38:28 Date Recorded Body height Body mass index (BMI) Body weight Oxygen saturation Heart rate Body temperature Systolic And Diastolic Provider Name and Address Organization Details Last Updated DateTime 5 175.26 cm 27.9 kg/m2 63445.5 2 g 99 % 48 /min 98.4 [degF] 134/82 mm[Hg] Felicia Davidson [employer] 08:23:49 Social History Question Answer Notes LastModified by Organizat ion Details LastModified Time Tobacco Smoking Status Former Smoker Felicia Davidson nandini, [employer] 07/06/2024 14:59:08 Do You Have An [...] Information not available 07/10/2025 What Type Of Tree Doctor Do You Use? None Information not available [...] Or The Highest Degree You Have Received? [id number] Information not available 07/10/2025 Who Is Your Employer? [employer], [employer], [employer] Child Support Information not available 07/06/2024 [...] Do You Have A Medical Power Of Deck Builder? Yes Information not available 07/06/2024 What Was [...] anxious, or unable to sleep at night)? [id number] Information not available 09/05/2024 Do you have [...] N Lung Disease N Dermatologic Disorders N COPD N Depression Y Developmental or Behavioral Disorders N Defects or Inherited Disease N Breast Problem N Difficulty Swallowing N Anesthesia Complications N History of STI N Meniere's disease N Anxiety Disorder N Muscle, Joint, or Bone Problems N Autoimmune disease N Obesity Y Vision or Eye Problems Y Arthritis Y Polyps N Infertility N Mental Disorder N Congenital Anomalies N Acid Reflux (GERD) N Cancer N Stroke N Neurologic/Epilepsy N Endometriosis N Bladder or Kidney Problems N High Cholesterol N Liver Disease N Psychiatric/Mental Health Condition N Organ Transplant N Headaches N Schizophrenia N Dialysis N Fibromyalgia N Kidney Disease N Allergies/Hayfever [...] A, adult 05/14/2025 completed [facility] Vice null, [facility] 05/14/2025 08:59:56 MMR 05/14/2025 completed Felicia Vice null, [employer] 05/14/2025 08:59:56 Tdap 12/03/2024 completed Felicia Vice null, [facility] 12/26/2024 15:39:28 typhoid, oral 05/02/2025 completed Not Available [facility] 07/10/2025 08:16:07 Past Encounters Encounter ID Performer Location Encounter Start Date Encounter Closed Date Diagnosis/Indication Diagnosis SNOMED-CT Code Diagnosis ICD10 Code Diagnosis IMO Codes Diagnosis Note [id number] PELON Shin [facility] [address] [place] [address] 07/06/2024 14:51:53 07/06/2024 16:18:15 prison current use of drug therapy for attention deficit hyperactivity disorder 1918759144 42487 Z79.899 Adult atte ntion deficit hyperactivity disorder 187639530 F90.9 [facility] #[id number] reviewedUD S beckCS A signed todayNote sent to Dr Huff to refill Adderall XR [id number] PELON Shin [address] [address] 09/05/2024 07:58:44 09/05/2024 08:34:02 Adult attention deficit hyperactivity disorder 831142388 F90.9 Adderall XR refilled by Dr Mckay in [facility] reviewed and appropriat e Body mass index 30+ - obesity 790310361 Z68.33 [id number] PELON Shin [address] [address] 11/02/2024 08:27:07 11/02/2024 09:33:45 Type 2 diabetes mellitus without complication 080646594 E11.9 Adult atte ntion deficit hyperactivity disorder 931889641 F90.9 Adderall XR refilled by Dr Mckay in [facility] reviewed and appropriat e Osteoarthritis 144648396 M19.90 Depressive disorder 3548 9007 F32.A Body mass index 30+ - obesity 030518925 Z68.33 [id number] PELON Shin [address] [address] 12/26/2024 15:16:43 12/26/2024 16:32:11 Paronychia of finger 402906238 L03.[address] [facility] Adult atte ntion deficit hyperactivity disorder 385470737 F90.9 Adderall XR refilled by Dr Mckay in [facility] reviewed and appropriat e [id number] PELON Shin [facility] [address] [place] [address] 02/13/2025 08:29:56 02/13/2025 09:02:21 Nodule on finger 781490387 R22.32 [id number] Cystic appearance - ? ganglion cyst [id number] PELON Shin [address] [address] 03/06/2025 16:53:33 03/06/2025 17:28:17 Tobacco dependence syndrome 40595595 F17.200 05557 Adult atte ntion deficit hyperactivity disorder 225156430 F90.9 Depressive disorder 3548 9007 F32.A Osteoarthritis 413404060 M19.90 Essential hypertension 87280786 I10 [id number] PELON Shin [address] [address] 05/07/2025 14:39:21 05/07/2025 15:24:46 Counseling 114435611 Z71.84 [id number] We have to order Havrix for her - will call her when we receive it [id number] PELON Shin [address] [address] 05/14/2025 08:31:57 05/14/2025 08:50:08 Viral hepatitis A vaccination given 3094750347 9105 Z23 4776957425 Requires m easles, mumps and rubella vaccination 468044038 Z23 819724 [id number] PELON Shin [address] [address] 07/10/2025 08:04:46 07/10/2025 09:37:52 Type 2 diabetes mellitus 64823786 E11.9 73493393 Long-term current use of drug therapy 470521901 Z79.899 52785993 History of anemia - iron deficient 192007122 Z86.2 465740 HIV screening 642598054 Z11.4 091740 Viral scre ening status 391656842 Z11.59 827867 Health Concerns Section Related Observation LastModified by Organization Detai ls LastModified Time None Recorded Concern Status LastModified by Organization Details LastModified Time None Recorded Advance Directives Directive N: Payers Insurance Date Sequence Insurance Name Policy Number Policy [place] Covered Member ID [place] Member ID Guarantor Name 07/07/2025 1 JEREMY [id number] Leslye Morrison [id number] Leslye Morrison Notes Date Note Type Note Provider Name and Address Organization Details Recorded Time 02/13/2025 text/html ROS as noted in the HPI Nodule on left middle finger at the base of her finger. Started after cleaning out some brush row. Her arms were scratched but she does not recall any injury to that area. The nodule is firm, and non-tender. No redness or drainage. PELON Shin [address] [place], [address], [employer] 02/13/2025 10:26:50 03/06/2025 text/html ROS as noted in the [facility] Patient presents for followup. History of ADHD. [...] it is still present. PELON Shin [address] [place], [address], [employer] 03/06/2025 17:38:07 05/07/2025 text/html ROS as noted in the [facility] Patient presents for followup.She is [facility] [place].Needs hepatitis A and MMR titres.Needs antibiotics for travelers diarrhea. PELON Shin [address] [place], [address], [employer] 05/07/2025 16:51:02 05/14/2025 text/html ROS as noted in the [facility] Patient going on anniversary trip next month and needs Hepatitis A and MMR PELON Shin [address] [place], [address], [employer] 05/14/2025 09:34:19 07/10/2025 text/html ROS as noted in the [facility] Patient presents for followup. History of ADHD. History of HTN, DM, OA, depression. She is due for refills. Recently returned from trip to the [facility]. History of iron deficiency anemia requiring iron infusions and would like to have labs drawn. PELON Shin [address] [place], [address], [employer] 07/10/2025 13:04:14 OBGyn Episode No OBEpisode recorded.
[2025-08-27 14:03] VITALS: BP 117/54; PULSE 64; RESP 14; TEMP 36.6; O2SAT 99
[2025-08-27] MEDS: IRON SUCROSE COMPLEX 200 MG in 0.9 % SODIUM CHLORIDE 100 ML 220 MG IV (14:03)
[2025-08-27] MEDS: SODIUM CHLORIDE 0.9% 10ML FLUSH SYRINGE 10 ML IV (14:03)
[2025-08-27 14:40] VITALS: BP 121/59; PULSE 66; RESP 14; O2SAT 99
== END 2025-08-27 23:59 | disposition home or self-care (01) ==
LOC: INF 13:50
PROVIDERS: PCP Physician Assistant; Visit Provider Physician Assistant
DX: D50.9 Iron deficiency anemia, unspecified (principal)
CPT/HCPCS: 96365; J1756

== ENCOUNTER 2025-09-03 10:11 | Outpatient (CLI) | payer OTHER, SELFPAY ==
[2025-09-03] MEDS: SODIUM CHLORIDE 0.9% 10ML FLUSH SYRINGE 10 ML IV (10:25)
[2025-09-03 10:26] VITALS: BP 107/58; PULSE 87; RESP 14; TEMP 36.6; O2SAT 100
[2025-09-03] MEDS: IRON SUCROSE COMPLEX 200 MG in 0.9 % SODIUM CHLORIDE 100 ML 220 MG IV (10:26)
[2025-09-03 11:08] VITALS: BP 108/65; PULSE 69; RESP 14; O2SAT 100
== END 2025-09-03 23:59 | disposition home or self-care (01) ==
LOC: INF 10:12
PROVIDERS: PCP Physician Assistant; Visit Provider Physician Assistant
DX: D50.9 Iron deficiency anemia, unspecified (principal)
CPT/HCPCS: 96365; J1756